=== PATIENT | male | born 1975 | race Caucasian/White ===

== ENCOUNTER 2016-10-02 19:17 | Emergency (ER) | payer MEDICAID, OTHER ==
[2016-10-02 19:53] VITALS: BP 100/58
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
== END 2016-10-02 20:46 | disposition home or self-care (01) ==
LOC: ER 19:17
DX: S30.810A Abrasion of lower back and pelvis, initial encounter (principal); X99.1XXA Assault by knife, initial encounter
CPT/HCPCS: 99284

== ENCOUNTER 2016-10-19 12:32 | Emergency (ER) | payer MEDICAID ==
--- NOTE | 2016-10-19 13:30 | ER Document Report ---
ED Skin Rash/Insect Bite/Abscs - General Chief Complaint: Cyst Stated Complaint: TOOTHACHE,ABSCESS Notes: Patient has several complaints. He has chronic cysts on the back of his neck and the lower scalp region for which he has had drainage and also treatment with antibiotics with some improvement. He also now has a fresh new swollen lesion of his scrotal sac. And finally, the patient has some bad teeth on the lower right side of his jaw that are very painful. He has an appointment for a dentist on November 23. Patient is not had any fever. No nausea or vomiting. This lesion on his scrotum has not been draining. Patient is a known diabetic who in the past has been on insulin as well as metformin, but is been out of his diabetes medicines for about a year. His blood sugars have been running in the 3 and 400s. Says he can get a prescription filled for his medicines now that he is on Medicaid. Allergic to penicillin. TRAVEL OUTSIDE OF THE [place] IN LAST 30 DAYS: No - Related Data Allergies/Adverse Reactions: Penicillins Allergy (Severe, Verified 10/19/16 12:45) ketorolac tromethamine [From Toradol] Allergy (Verified 10/19/16 12:45) acetaminophen [From Tylenol] Adverse Reaction (Mild, Verified 10/19/16 12:45) Nausea codeine [Codeine] Adverse Reaction (Verified 10/19/16 12:45) Nausea tramadol [Tramadol] Adverse Reaction (Verified 10/19/16 12:45) Nausea tramadol HCl [From Ultram] Adverse Reaction (Verified 10/19/16 12:45) Nausea Past Medical History - Social History Smoking Status: Unknown if Ever Smoked Family History: Reviewed & Not Pertinent Patient has suicidal ideation: No Patient has homicidal ideation: No - Past Medical History Cardiac Medical History: Reports: Hx Hypertension Pulmonary Medical History: Reports: Hx Asthma Endocrine Medical History: Reports: Hx Diabetes Mellitus Type 1, Hx Diabetes Mellitus Type 2 Renal/ Medical History: Reports: Hx Kidney Stones. Denies: Hx Peritoneal Dialysis GI Medical History: Reports: Hx Gastroesophageal Reflux Disease Musculoskeltal Medical History: Reports Hx Arthritis - chronic back pain Skin Medical History: Reports Hx MRSA Psychiatric Medical History: Reports: Hx Anxiety, Hx Attention Deficit Hyperactivity Disorder, Hx Bipolar Disorder, Hx Depression, Hx Schizophrenia Past Surgical History: Reports: Hx Cholecystectomy, Hx Orthopedic Surgery - r pinkie, L leg fx as child - Immunizations Hx Diphtheria, Pertussis, Tetanus Vaccination: Yes - 10/19/12 Review of Systems - Review of Systems Constitutional: denies: Fever Cardiovascular: denies: Chest pain Respiratory: denies: Cough, Short of breath, Wheezing Gastrointestinal: denies: Abdominal pain Skin: See HPI Neurological/Psychological: No symptoms reported Physical Exam - Vital signs Vitals: Temp Pulse Resp BP Pulse Ox 98.4 F 106 H 19 143/83 H 98 10/19/16 12:45 10/19/16 12:45 10/19/16 12:45 10/19/16 12:45 10/19/16 12:45 Interpretation: Normal - Notes Notes: PHYSICAL EXAMINATION: GENERAL: Well-appearing, in no acute distress. Vital signs are all normal. HEAD: Atraumatic, normocephalic. In the lower portion of the scalp and onto the upper cervical skin in the back of the neck, the patient has a diffuse cellulitic looking skin with some scattered pustules present. No actual abscess formation or fluctuance that would indicate a need for incision and drainage of any of these lesions. I discussed local hygiene and scrubbing of the areas with soap and water a couple times a day ENT: oropharynx clear without exudates. Moist mucous membranes. Patient has couple of dental caries and bad teeth on the lower right most posterior aspect of the jaw. No gingival or jaw swelling to suggest an abscess. NECK: Normal range of motion, supple. LUNGS: Breath sounds clear and equal bilaterally. HEART: Regular rate and rhythm without murmurs. ABDOMEN: Soft, nontender. No guarding or rebound. Patient has one single slightly swollen nodular structure of the scrotal sac that's likely a infected hair follicle. There is no fluctuance and no need for I&D. BACK: No tenderness throughout entire back.in. SKIN: Warm, dry, no rashes. See above. Course - Vital Signs Vital signs: Temp Pulse Resp BP Pulse Ox 97.7 F 91 16 121/76 98 10/19/16 13:29 10/19/16 13:29 10/19/16 13:29 10/19/16 13:29 10/19/16 13:29 - Laboratory Laboratory results interpreted by me: 10/19/16 13:25 POC Glucose 357 H Discharge - Discharge Clinical Impression: Folliculitis, Dental caries Cellulitis Qualifiers: Site of cellulitis: neck Qualified Code(s): L03.221 - Cellulitis of neck Diabetes Qualifiers: Diabetes mellitus type: type 2 Diabetes mellitus complication status: with skin complications Diabetes mellitus complication detail: with dermatitis Condition: Stable Disposition: HOME, SELF-CARE Additional Instructions: Folliculitis You have a skin infection called folliculitis. This occurs when bacteria infect the hair follicles of the skin. Typically, redness and small pustules are found where hair shafts enter the skin. Allergy, surface irritation, shaving, and exposure to hot tubs predispose to folliculitis. The usual treatment is antibiotic ointment, sometimes combined with cortisone-type medication. Warm compresses are often used. If the infection has moved deeper into the skin, oral antibiotics may be necessary. To avoid future episodes of folliculitis, you must identify (if possible) the factors which allowed this infection to start. If you develop increasing pain, swelling, fever, or red streaks, call the doctor or return for re-evaluation. CELLULITIS: You have an infection of your skin and underlying soft tissues called cellulitis. This is due to bacteria, which can enter through any break in the skin, or even through an irritated hair follicle. Untreated, cellulitis will usually worsen. Antibiotics are required. Usually, warm packs or warm soaks, and elevation of the infected area are recommended. You should start getting better within 24 to 36 hours. Most infections respond quickly to the right medication. Follow-up care is important, however, to check for abscess (boil) formation, unsuspected foreign body, or resistant infection. If you develop fever, chills, or if the area of infection is becoming rapidly more swollen or painful, call the doctor at once. MRSA CELLULITIS: You have an infection of your skin and underlying soft tissues called cellulitis. This is due to bacteria, which can enter through any break in the skin, or even through an irritated hair follicle. Untreated, cellulitis will usually worsen and may form an abscess which requires draining. Although many bacterial organisms can cause cellulitis and abscess formations, the most likely bacteria is Methicillin-Resistant Staph Aureus, or MRSA for short. Antibiotics are required. Usually, warm packs or warm soaks, and elevation of the infected area are recommended. You should start getting better within 24 to 36 hours. Most infections respond quickly to the right medication. Follow-up care is important, however, to check for abscess (boil) formation, unsuspected foreign body, or resistant infection. If you develop fever, chills, or if the area of infection is becoming rapidly more swollen or painful, call the doctor at once. ANTIBIOTIC THERAPY: You have been given an antibiotic prescription. It's important that you take all the medication, unless instructed otherwise by your physician. Failure to complete the entire course can result in relapse of your condition. Common side effects of antibiotics include nausea, intestinal cramping, or diarrhea. Women may develop vaginal yeast infections, and babies can get yeast (thrush) in the mouth following the use of antibiotics. Contact your physician if you develop significant side effects from this medication. Allergy to this antibiotic can result in hives, wheezing, faintness, or itching. If symptoms of allergy occur, stop the medication and call the doctor. TRIMETHOPRIM-SULFA: You have been given a prescription for trimethoprim-sulfa (TMS, Septra, Bactrim). This is a combination antibiotic of the sulfa class, often used for urinary tract infections, middle ear infections, bronchitis, shigella intestinal infection, and Pneumocystis pneumonia. TMS is usually well-tolerated. Occasional side effects include nausea and decreased appetite. Septra is not recommended for infants less than two months of age. Do not take this medication if you have experienced severe side effects or allergy to sulfa medicine. You should stop this medicine at once and contact your physician if you develop any rash, joint pain, shortness of breath, bruising, or jaundice ( yellow color in the skin), or if you develop any other new or unusual symptoms. ORAL NARCOTIC MEDICATION: You have been given a prescription for pain control. This medication is a narcotic. It's best taken with food, as nausea can result if taken on an empty stomach. Don't operate machinery or drive within six hours of taking this medication. Do not combine this medicine with alcohol, or with any medication which can cause sedation (such as cold tablets or sleeping pills) unless you get permission from the physician. Narcotics tend to cause constipation. If possible, drink plenty of fluids and eat a diet high in fiber and fruits. Diabetes You have an abnormally high blood sugar, suspicious for diabetes. Not all high blood sugar requires long-term treatment. High blood sugar can be due to medications, , or the stress of illness. (These cases are "borderline diabetes.") If the doctor feels your high blood sugar might get better with time, you may not require treatment now. You will be scheduled for further evaluation. It's very important that you follow through. Uncontrolled high blood sugar leads to early heart disease , strokes, nerve damage, eye damage, and kidney damage. All diabetics should follow a diet designed to control the blood sugar. Overweight diabetics should exercise regularly and lose weight. If this is not sufficient to control the blood sugar, pills or insulin shots are necessary. Younger people who develop diabetes almost always require insulin daily. Home testing of blood sugars or urine sugar is required. Diabetic teaching is available to help you figure insulin doses and monitor the blood sugar. Call the physician if there is faintness, excess sleepiness, or very rapid breathing. If hypoglycemia (LOW blood sugar) develops, symptoms are shakiness, weakness, sweating, and confusion. In this case, you should eat or drink something with sugar at once. TOOTHACHE: Your pain is due to dental decay. The tooth must be repaired in order for you to feel better. You will, therefore, be referred to a dentist. We do not have dentists on the staff at [facility]. Severe swelling or drainage around a tooth usually means a dental abscess. This also requires evaluation and treatment by the dentist, but antibiotics may be prescribed while awaiting dental treatment. You should be rechecked immediately if you develop major swelling of the face, increasing pain, a lump in the jaw or gums, headache, difficulty swallowing, or fever. ORAL NARCOTIC MEDICATION: You have been given a prescription for pain control. This medication is a narcotic. It's best taken with food, as nausea can result if taken on an empty stomach. Don't operate machinery or drive within six hours of taking this medication. Do not combine this medicine with alcohol, or with any medication which can cause sedation (such as cold tablets or sleeping pills) unless you get permission from the physician. Narcotics tend to cause constipation. If possible, drink plenty of fluids and eat a diet high in fiber and fruits. FOLLOW-UP CARE: You have been referred for follow-up care to the dentists listed below. Call the dentists office for an appointment as you were instructed or within the next two days. If you experience worsening or a significant change in your symptoms, notify the physician immediately or return to the Emergency Department at any time for re-evaluation. [facility] [address] [place] [address] [facility] [place] [address] [facility] [address] [facility] [address] [facility] [email or web address] [facility] [address] [place] [address] Sunday- 8:00am to 5:00 pm Will see patients from other [place] [facility]. Charges based on income and family size and accepts Medicare, Medicaid, and Insurances Will pull molars [facility] [address] Hours of Operation 8:00 am - 4:30 pm weekdays The following dental offices accept Medicaid: [facility] Dr. Castano Dr. Chapman Dr. Naqvi Dr. Vyas Min Calvo L[place], and Jen oral surgery Dr. Govea ([place]) Dr. Becker ([place]) [facility] Drs. Akbar and Max ([place]) Dr. Fernandes ([place]) [facility] Dr. Uribe ([place]) Drs. Prado and ([place]) Medicaid Care Line FOLLOW-UP CARE: If you have been referred to a physician for follow-up care, call the physician s office for an appointment as you were instructed or within the next two days. If you experience worsening or a significant change in your symptoms, notify the physician immediately or return to the Emergency Department at any time for re-evaluation. Prescriptions: Metformin HCl [Glucophage] 1,000 mg PO BID #60 tablet Oxycodone HCl/Acetaminophen [Percocet 5-325 mg Tablet] 1 - 2 tab PO Q4H PRN #15 tablet PRN Reason: Sulfamethoxazole/Trimethoprim [Bactrim Ds Tablet] 1 each PO BID #20 tablet Referrals: HORTENCIA JOYNER MD [Primary Care Provider] - Follow up as needed
[2016-10-19 13:31] VITALS: BP 121/76
== END 2016-10-19 13:30 | disposition home or self-care (01) ==
LOC: ER 12:32
DX: E11.628 Type 2 diabetes mellitus with other skin complications (principal); L03.221 Cellulitis of neck; L73.9 Follicular disorder, unspecified; Z91.14 Patient's other noncompliance with medication regimen; K02.9 Dental caries, unspecified; K08.89 Other specified disorders of teeth and supporting structures; I10 Essential (primary) hypertension; Z86.14 Personal history of Methicillin resistant Staphylococcus aureus infection; Z88.0 Allergy status to penicillin; Z88.8 Allergy status to other drugs, medicaments and biological substances; J45.909 Unspecified asthma, uncomplicated
CPT/HCPCS: 82962; 99283

== ENCOUNTER 2016-10-30 09:46 | Emergency (ER) | payer MEDICAID ==
[2016-10-30] MEDS ORDERED: OXYCODONE HCL IR 5 MG TABLET PO ONE (10:30)
--- NOTE | 2016-10-30 10:51 | ER Document Report ---
HPI - HPI Patient complains to provider of: hand injury Onset: Yesterday Onset/Duration: Sudden Quality of pain: Achy Pain Level: 5 Context: Patient states that he was installing a speaker system into his trunk, the speaker system fell crushing his hand on the edge of the car trunk. Patient complains of left fourth finger pain Associated Symptoms: Other - Left fourth finger injury Exacerbated by: Movement Relieved by: Denies Similar symptoms previously: No Recently seen / treated by doctor: No - ROS ROS below otherwise negative: Yes Systems Reviewed and Negative: Yes All other systems reviewed and negative - REPRODUCTIVE Reproductive: DENIES: : - MUSCULOSKELETAL Musculoskeletal: REPORTS: Extremity pain - Left fourth finger - DERM Skin Color: Normal Skin Problems: None Past Medical History - General Information source: Patient - Social History Smoking Status: Never Smoker Chew tobacco use (# tins/day): Yes Frequency of alcohol use: None Drug Abuse: None Occupation: none Lives with: Family Family History: Reviewed & Not Pertinent Patient has suicidal ideation: No Patient has homicidal ideation: No - Past Medical History Cardiac Medical History: Reports: Hx Hypertension Pulmonary Medical History: Reports: Hx Asthma Denies: Hx Tuberculosis Endocrine Medical History: Reports: Hx Diabetes Mellitus Type 1, Hx Diabetes Mellitus Type 2 Renal/ Medical History: Reports: Hx Kidney Stones. Denies: Hx Peritoneal Dialysis GI Medical History: Reports: Hx Gastroesophageal Reflux Disease Musculoskeltal Medical History: Reports Hx Arthritis - chronic back pain Skin Medical History: Reports Hx MRSA Psychiatric Medical History: Reports: Hx Anxiety, Hx Attention Deficit Hyperactivity Disorder, Hx Bipolar Disorder, Hx Depression, Hx Schizophrenia Past Surgical History: Reports: Hx Cholecystectomy, Hx Orthopedic Surgery - r pinkie, L leg fx as child - Immunizations Hx Diphtheria, Pertussis, Tetanus Vaccination: Yes - 10/19/12 Vertical Provider Document - CONSTITUTIONAL Agree With Documented VS: Yes Exam Limitations: No Limitations General Appearance: WD/WN, No Apparent Distress - INFECTION CONTROL TRAVEL OUTSIDE OF THE [place] IN LAST 30 DAYS: No - HEENT HEENT: Atraumatic, Normocephalic - NECK Neck: Normal Inspection - RESPIRATORY Respiratory: No Respiratory Distress O2 Sat by Pulse Oximetry: 89 - CARDIOVASCULAR Pulses: Normal: Radial - MUSCULOSKELETAL/EXTREMETIES Musculoskeletal/Extremeties: MAEW, Tender - Patient with left fourth finger tenderness along DIP and PIP joint, no deformity, no ecchymosis, No Edema. negative: Eccymosis - NEURO Level of Consciousness: Awake, Alert, Appropriate Motor/Sensory: No Motor Deficit - DERM Integumentary: Warm, Dry, No Rash Course - Re-evaluation Re-evalutation: 10/30/16 11:09 Patient with an erroneous oxygen saturation recorded, patient has not been hypoxic during ER stay. - Vital Signs Vital signs: Temp Pulse Resp BP Pulse Ox 98.4 F 99 18 132/85 H 89 L 10/30/16 09:52 10/30/16 09:52 10/30/16 09:52 10/30/16 09:52 10/30/16 09:52 - Diagnostic Test Radiology reviewed: Image reviewed, Reports reviewed Procedures - Immobilization Left 4th digit Pre-Proc Neuro Vasc Exam: Normal Immobilizer type: Volar splint Performed by: PCT Post-Proc Neuro Vasc Exam: Normal Alignment checked and good: Yes Discharge - Discharge Clinical Impression: Finger fracture, left Condition: Stable Disposition: HOME, SELF-CARE Instructions: Fractured Finger ([facility]), Splint Precautions ([facility]), Ice & Elevation ([facility]), Oral Narcotic Medication ([facility]) Additional Instructions: Return immediately for any new or worsening symptoms Followup with your primary care provider, call tomorrow to make a followup appointment Follow up with orthopedic DrHuan for further evaluation, call tomorrow for an appointment time Prescriptions: Oxycodone HCl [Oxy-Ir 5 mg Tablet] 5 mg PO Q6HP PRN #15 tab PRN Reason: Referrals: HORTENCIA JOYNER MD [Primary Care Provider] - Follow up tomorrow [facility] [Provider Group] - Follow up tomorrow
[2016-10-30 11:36] VITALS: BP 128/88
== END 2016-10-30 11:37 | disposition home or self-care (01) ==
LOC: ER 09:46
PROC: 2W3KX1Z Immobilization of Left Finger using Splint (ICD-10-PCS; principal; 2016-10-30)
DX: S69.92XA Unspecified injury of left wrist, hand and finger(s), initial encounter (principal); W20.8XXA Other cause of strike by thrown, projected or falling object, initial encounter; I10 Essential (primary) hypertension; E11.9 Type 2 diabetes mellitus without complications; K21.9 Gastro-esophageal reflux disease without esophagitis; Z87.442 Personal history of urinary calculi; Z86.14 Personal history of Methicillin resistant Staphylococcus aureus infection; Z90.49 Acquired absence of other specified parts of digestive tract
CPT/HCPCS: 99283; 73140; 29125; J3490

== ENCOUNTER 2016-12-11 20:53 | Emergency (ER) | payer MEDICAID, OTHER ==
[2016-12-11 21:11] VITALS: BP 119/87
--- NOTE | 2016-12-11 22:16 | ER Document Report ---
ED Psych Disorder / Suicide - General Chief Complaint: Wrist Injury Stated Complaint: WRIST LACERATION Time Seen by Provider: 12/11/16 22:15 Mode of Arrival: Ambulatory Information source: Patient Notes: 41-year-old male who is anxious and agitated demanding food and being seen quickly once his volar right wrist checked. He cut his wrist last Sunday or . He has a history of cutting self with increased stress. Today he was arguing with his all day. He does have a psychiatrist and takes medication for anxiety stress schizophrenia. He did not take his benzodiazepine tonight, he denies alcohol or substance abuse. he denies suicide ideation or homicidal ideation at this time. He appears voices daily and they are not telling him to harm himself today. No fever or chills. He is worried because he had some numbness to his inner aspect of the right thumb since he cut his wrist. TRAVEL OUTSIDE OF THE [place] IN LAST 30 DAYS: No - Related Data Allergies/Adverse Reactions: Penicillins Allergy (Severe, Verified 10/30/16 10:47) ketorolac tromethamine [From Toradol] Allergy (Verified 10/30/16 10:47) acetaminophen [From Tylenol] Adverse Reaction (Mild, Verified 10/30/16 10:47) Nausea codeine [Codeine] Adverse Reaction (Verified 10/30/16 10:47) Nausea tramadol [Tramadol] Adverse Reaction (Verified 10/30/16 10:47) Nausea tramadol HCl [From Ultram] Adverse Reaction (Verified 10/30/16 10:47) Nausea Past Medical History - General Information source: Patient - Social History Smoking Status: Current Every Day Smoker Frequency of alcohol use: None Drug Abuse: None Lives with: Spouse/Significant other Family History: Reviewed & Not Pertinent, Hyperlipidemia Patient has suicidal ideation: Yes Patient has homicidal ideation: No - Past Medical History Cardiac Medical History: Reports: Hx Hypertension Pulmonary Medical History: Reports: Hx Asthma Denies: Hx Tuberculosis Endocrine Medical History: Reports: Hx Diabetes Mellitus Type 1, Hx Diabetes Mellitus Type 2 Renal/ Medical History: Reports: Hx Kidney Stones. Denies: Hx Peritoneal Dialysis GI Medical History: Reports: Hx Gastroesophageal Reflux Disease Musculoskeltal Medical History: Reports Hx Arthritis - chronic back pain Skin Medical History: Reports Hx MRSA Psychiatric Medical History: Reports: Hx Anxiety, Hx Attention Deficit Hyperactivity Disorder, Hx Bipolar Disorder, Hx Depression, Hx Schizophrenia Past Surgical History: Reports: Hx Cholecystectomy, Hx Orthopedic Surgery - r pinkie, L leg fx as child - Immunizations Hx Diphtheria, Pertussis, Tetanus Vaccination: Yes - 10/19/12 Review of Systems - Review of Systems Constitutional: No symptoms reported EENT: No symptoms reported Cardiovascular: No symptoms reported Respiratory: No symptoms reported Gastrointestinal: No symptoms reported Genitourinary: No symptoms reported Male Genitourinary: No symptoms reported Musculoskeletal: No symptoms reported Skin: See HPI Hematologic/Lymphatic: No symptoms reported Neurological/Psychological: See HPI Physical Exam - Vital signs Vitals: Temp Pulse Resp BP Pulse Ox 98.5 F 116 H 16 119/87 H 97 12/11/16 21:07 12/11/16 21:07 12/11/16 21:07 12/11/16 21:07 12/11/16 21:07 Interpretation: Normal - General General appearance: Appears well, Alert, Anxious - Agitated and demanding verbally - HEENT Head: Normocephalic, Atraumatic Eyes: Normal Pupils: PERRL Neck: Supple - Respiratory Respiratory status: No respiratory distress Chest status: Nontender Breath sounds: Normal Chest palpation: Normal - Cardiovascular Rhythm: Regular Heart sounds: Normal auscultation Murmur: No - Abdominal Inspection: Normal Distension: No distension Bowel sounds: Normal Tenderness: Nontender Organomegaly: No organomegaly - Back Back: Normal, Nontender - Extremities General upper extremity: Normal inspection, Nontender, Normal color, Normal ROM , Normal temperature General lower extremity: Normal inspection, Nontender, Normal color, Normal ROM , Normal temperature, Normal weight bearing. No: Laci's sign - Neurological Neuro grossly intact: Yes Cognition: Normal Orientation: AAOx4 [place] Coma Scale Eye Opening: Spontaneous [place] Coma Scale Verbal: Oriented [place] Coma Scale Motor: Obeys Commands [place] Coma Scale Total: 15 Speech: Normal Motor strength normal: LUE, RUE, LLE, RLE Sensory: Normal - Psychological Associated symptoms: Agitated, Anxious, Psychomotor agitation - Skin Skin Temperature: Warm Skin Moisture: Dry Skin Color: Normal Skin irregularity: Laceration - 3 cm full thickness (to sub Q only) healing / granulating in without pus or ascending erythema, FROM. dulled senastion to right thenar aspect of thumb/palm Location of irregularity: Other - volar right breast Irregularity with: Tenderness. negative: Warmth, Lymphangitis Course - Re-evaluation Re-evalutation: 12/11/16 23:42 dr. tran went into the room as I requested her to do, pt is not suicidal at this time. He wants to go home, he can take his diabetes medication when he gets home, treatment for a few days of clindamycin for the wrist wound that he cut 3-4 days. - Vital Signs Vital signs: Temp Pulse Resp BP Pulse Ox 98.5 F 116 H 16 119/87 H 97 12/11/16 21:07 12/11/16 21:07 12/11/16 21:07 12/11/16 21:07 12/11/16 21:07 - Laboratory Laboratory results interpreted by me: 12/11/16 23:30 Urine Glucose (UA) >=500 H Discharge - Discharge Clinical Impression: right volar wrist wound, Anxiety, Chronic schizophrenia, Numbness Condition: Good Disposition: HOME, SELF-CARE Instructions: Dressing Instructions for Open Wounds ([facility]), Schizophrenia ([facility]) , Anxiety ([facility]), Diabetes ([facility]), Clindamycin ([facility]) Additional Instructions: wash open water daily, nonstick dressing return to the emergency room any fever, red streaks, pus, worsening of the wound see your psych doctor tomorrow. take your anxiety medication and diabetes medication when you get home Prescriptions: Clindamycin HCl [Cleocin 150 mg Capsule] 300 mg PO TID #42 capsule
[2016-12-11] MEDS ORDERED: CLINDAMYCIN HCL 150 MG CAPSULE PO ONE (22:58)
[2016-12-11] MEDS ORDERED: HYDROXYZINE PAMOATE 50 MG CAPSULE PO ONE (22:58)
--- NOTE | 2016-12-11 22:58 | RADIOLOGY REPORT (SQ) ---
EXAM DESCRIPTION: WRIST RIGHT 3 VIEWS COMPLETED DATE/TIME: 12/11/2016 10:31 pm REASON FOR STUDY: laceration COMPARISON: None. NUMBER OF VIEWS: Three views. TECHNIQUE: AP, lateral, and oblique radiographic images acquired of the right wrist. LIMITATIONS: None. FINDINGS: MINERALIZATION: Normal. BONES: No acute fracture or dislocation. No worrisome bone lesions. Normal alignment. SOFT TISSUES: No soft tissue swelling. No foreign body. OTHER: No other significant finding. IMPRESSION: NO RADIOGRAPHIC EVIDENCE OF ACUTE INJURY. TECHNICAL DOCUMENTATION: JOB ID: [id number] [employer]- All Rights Reserved
[2016-12-11] MEDS ORDERED: HALOPERIDOL LACTATE INJ 5 MG/1 ML VIAL ONE (23:39)
[2016-12-11] MEDS ORDERED: LORAZEPAM INJ 2 MG/1 ML VIAL ONE (23:40)
--- NOTE | 2016-12-11 23:45 | ER Document Report ---
Doctor's Note Notes: 12/11/16 23:43 Patient was seen and evaluated at bedside with nurse practitioner Jey patient reports that he has been hearing voices all his life, there are no different today, he denies being suicidal, he does admit to cutting right wrist 4 days ago, states that he is a cutter but has no intention of killing himself, states he feels safe to go home, therefore patient will be discharged home with instructions for follow-up and advised to return if symptoms worsen
[2016-12-11 23:50] LABS: APPEARANCE,URINE CLEAR; BILIRUBIN,URINE NEGATIVE (NEGATIVE); GLUCOSE, URINE >=500 mg/dL (NEGATIVE); KETONES,URINE NEGATIVE (NEGATIVE); LEUKOCYTE ESTERASE,URINE NEGATIVE (NEGATIVE); NITRITE,URINE NEGATIVE (NEGATIVE); PROTEIN,URINE NEGATIVE (NEGATIVE); URINE SPECIFIC GRAVITY 1.009; UROBILINOGEN,URINE NEGATIVE mg/dL (<2.0)
[2016-12-12 00:04] LABS: URINE BARBITURATES SCREEN NEGATIVE; URINE METHADONE SCREEN NEGATIVE; URINE OPIATES LOW NEGATIVE; URINE PHENCYCLIDINE SCREEN NEGATIVE
--- NOTE | 2016-12-15 08:52 | EKG REPORT ---
SEVERITY:- ABNORMAL ECG - SINUS TACHYCARDIA SOLO, CONSIDER BIATRIAL ABNORMALITIES BORDERLINE T WAVE ABNORMALITIES : Confirmed by: Lexie Pompa 15-Dec-2016 08:51:20
== END 2016-12-11 23:49 | disposition home or self-care (01) ==
LOC: ER 20:53
DX: S61.511A Laceration without foreign body of right wrist, initial encounter (principal); F41.9 Anxiety disorder, unspecified; F20.9 Schizophrenia, unspecified; R20.0 Anesthesia of skin; X78.9XXA Intentional self-harm by unspecified sharp object, initial encounter; Z79.899 Other long term (current) drug therapy; F17.200 Nicotine dependence, unspecified, uncomplicated
CPT/HCPCS: 93005; 99283; 81001; 80307; 73110; 93010; J3490 ×2

== ENCOUNTER 2016-12-14 20:00 | Emergency (ER) | payer OTHER, MEDICAID ==
--- NOTE | 2016-12-14 20:02 | ER Document Report ---
ED Head/Face/Scalp Injury - General Chief Complaint: Head Injury Stated Complaint: SELF INFLICTED HEAD INJURY Time Seen by Provider: 12/14/16 20:01 Notes: Patient is a 41-year-old male, past medical history schizophrenia, presents by EMS after he was in assisted and hit his head against a piece of glass. EMS said that he has a forehead injury and he may have had LOC. Pt is intermittently agitated and says he hears voices, but he says that he always hears voices. Denies numbness, tingling, blurry vision, suicidal ideation, homicidal ideation , chest pain or shortness of breath TRAVEL OUTSIDE OF THE [place] IN LAST 30 DAYS: No - Related Data Allergies/Adverse Reactions: Penicillins Allergy (Severe, Verified 12/14/16 20:25) ketorolac tromethamine [From Toradol] Allergy (Verified 12/14/16 20:25) acetaminophen [From Tylenol] Adverse Reaction (Mild, Verified 12/14/16 20:25) Nausea codeine [Codeine] Adverse Reaction (Verified 12/14/16 20:25) Nausea tramadol [Tramadol] Adverse Reaction (Verified 12/14/16 20:25) Nausea tramadol HCl [From Ultram] Adverse Reaction (Verified 12/14/16 20:25) Nausea Past Medical History - General Information source: Patient - Social History Smoking Status: Current Every Day Smoker Drug Abuse: Cocaine Family History: Reviewed & Not Pertinent, Hyperlipidemia - Past Medical History Cardiac Medical History: Reports: Hx Hypertension Pulmonary Medical History: Reports: Hx Asthma Denies: Hx Tuberculosis Endocrine Medical History: Reports: Hx Diabetes Mellitus Type 1, Hx Diabetes Mellitus Type 2 Renal/ Medical History: Reports: Hx Kidney Stones. Denies: Hx Peritoneal Dialysis GI Medical History: Reports: Hx Gastroesophageal Reflux Disease Musculoskeltal Medical History: Reports Hx Arthritis - chronic back pain Skin Medical History: Reports Hx MRSA Psychiatric Medical History: Reports: Hx Anxiety, Hx Attention Deficit Hyperactivity Disorder, Hx Bipolar Disorder, Hx Depression, Hx Schizophrenia Past Surgical History: Reports: Hx Cholecystectomy, Hx Orthopedic Surgery - r pinkie, L leg fx as child - Immunizations Hx Diphtheria, Pertussis, Tetanus Vaccination: Yes - 10/19/12 Review of Systems - Review of Systems Notes: REVIEW OF SYSTEMS: CONSTITUTIONAL: -fevers, -chills EENT: -eye pain, -difficulty swallowing, -nasal congestion CARDIOVASCULAR:-chest pain, -syncope. RESPIRATORY: -cough, -SOB GASTROINTESTINAL: -abdominal pain, - nausea, -vomiting, -diarrhea GENITOURINARY: -dysuria, -hematuria MUSCULOSKELETAL: -back pain, -neck pain SKIN: +forehead laceration HEMATOLOGIC: -easy bruising or bleeding. LYMPHATIC: -swollen, enlarged glands. NEUROLOGICAL: -altered mental status, -headache, -neurologic symptoms PSYCHIATRIC: -anxiety, -depression. ALL OTHER SYSTEMS REVIEWED AND NEGATIVE. Physical Exam - Vital signs Vitals: Resp Pulse Ox 17 100 12/14/16 20:21 12/14/16 20:21 - Notes Notes: PHYSICAL EXAMINATION: GENERAL: Well-appearing, well-nourished and in no acute distress. HEAD: Superficial forehead lacerations EYES: Pupils equal round and reactive to light, extraocular movements intact, sclera anicteric, conjunctiva are normal. ENT: nares patent, oropharynx clear without exudates. Moist mucous membranes. NECK: Normal range of motion, supple without lymphadenopathy LUNGS: Breath sounds clear to auscultation bilaterally and equal. No wheezes rales or rhonchi. HEART: Regular rate and rhythm without murmurs ABDOMEN: Soft, nontender, normoactive bowel sounds. No guarding, no rebound. No masses appreciated. EXTREMITIES: Normal range of motion, no pitting or edema. No cyanosis. NEUROLOGICAL: Cranial nerves grossly intact. Normal speech, normal gait. Normal sensory and motor exams. PSYCH: Intermittent agitation, but redirectable. No SI or HI. Course - Re-evaluation Re-evalutation: Head CT does not show any acute intracranial abnormalities. Band-Aid placed on superficial abrasions/lacerations on his forehead. Discharged patient to police custody. Denies SI or HI. - Vital Signs Vital signs: Temp Pulse Resp BP Pulse Ox 98.1 F 21 H 116/87 H 100 12/14/16 22:15 12/14/16 22:01 12/14/16 22:01 12/14/16 22:01 - Laboratory Result Diagrams: 12/14/16 20:28 12/14/16 20:28 Laboratory results interpreted by me: 12/14/16 12/14/16 20:28 20:28 WBC 12.9 H RBC 5.82 H Absolute Neutrophils 9.9 H Chloride 95 L Glucose 303 H Creatine Kinase 249 H - Diagnostic Test Radiology reviewed: Image reviewed, Reports reviewed Radiology results interpreted by me: Head CT: NAD Discharge - Discharge Clinical Impression: Head injury Qualifiers: Encounter type: initial encounter Qualified Code(s): S09.90XA - Unspecified injury of head, initial encounter Laceration of forehead Qualifiers: Encounter type: initial encounter Qualified Code(s): S01.81XA - Laceration without foreign body of other part of head, initial encounter Condition: Good Disposition: HOME, SELF-CARE Additional Instructions: NON-SUTURED LACERATION: Your laceration did not require suturing. Some lacerations cannot be sutured because of increased infection risk, while others simply don't need stitches because they are shallow or very short. Your injury should be protected while it heals. Usually complete healing takes 10 to 14 days. Keep the dressing clean and dry, and change it every day. If you notice increasing pain, redness, swelling, drainage, or tender lumps in the armpit or groin above the injury, infection may be present. You should call the doctor at once. SOAP CLEANSING: Gently wash the wound daily using a mild soap (like Ivory, Phisoderm, Neutrogena). Use warm water, rubbing gently until all debris, ooze, and crusting have been washed from the wound. Allow to dry briefly (about 10 minutes) after cleaning. Repeat this cleansing at least three times a day for the first two days and then once or twice a day. ANTIBIOTIC OINTMENT PROTECTION: Your wounds are such that dressing them is not practical or optional. After cleansing, you should apply a thin coating of antibiotic ointment ( Bacitracin, not Neosporin) to the wounds at least three times daily. This lessens infection risk, and may decrease the amount of scarring. Use a q-tip or dull butter knife, not your finger, to apply this ointment. Any debris or ooze which builds up in the ointment should be gently rubbed off with a sterile gauze pad. Harder crusting may need to be gently scrubbed off with a clean wash cloth with soap and warm water, perhaps applying a warm, wet wash cloth to the wound for ten minutes first. Development of redness, severe itching, or blistering may mean allergy to the ointment. See the doctor. FOLLOW-UP CARE: If you have been referred to another physician for follow-up care, call that physicians office for an appointment as you were instructed. If you experience a significant change in your laceration, or if you are concerned there may be an infection (swelling, redness, drainage, increasing tenderness, red streaks, tender lumps in the armpit or groin above the laceration, or fever) , return to the Emergency Department immediately re-evaluation.
--- NOTE | 2016-12-14 20:30 | RADIOLOGY REPORT (SQ) ---
EXAM DESCRIPTION: CT HEAD WITHOUT COMPLETED DATE/TIME: 12/14/2016 8:12 pm REASON FOR STUDY: head injury COMPARISON: May 2016 TECHNIQUE: Axial images acquired through the brain without intravenous contrast. Images reviewed wi th bone, brain and subdural windows. Images stored on PACS. All CT scanners at this facility use dose modulation, iterative reconstruction, and/or weight based d osing when appropriate to reduce radiation dose to as low as reasonably achievable (ALARA). [facility]: Dose Right [facility]: CareDose [facility]: Dose Right [facility]: Teradose 4D [facility]: L2C RADIATION DOSE: 64.61 mGy. LIMITATIONS: None. FINDINGS: VENTRICLES: Normal size and contour. CEREBRUM: No masses. No hemorrhage. No midline shift. Normal greenberg/white matter differentiation. N o evidence for acute infarction. CEREBELLUM: No masses. No hemorrhage. No alteration of density. No evidence for acute infarction. EXTRAAXIAL SPACES: No fluid collections. No masses. ORBITS AND GLOBE: No intra- or extraconal masses. Normal contour of globe without masses. CALVARIUM: No fracture. PARANASAL SINUSES: No fluid or mucosal thickening. SOFT TISSUES: No mass or hematoma. OTHER: No other significant finding. IMPRESSION: NORMAL BRAIN CT WITHOUT CONTRAST. TECHNICAL DOCUMENTATION: JOB ID: [id number] Quality ID # [id number]: Final reports with documentation of one or more dose reduction techniques (e.g., Au tomated exposure control, adjustment of the mA and/or kV according to patient size, use of iterative reconstruction technique) 2010 [employer]- All Rights Reserved
--- NOTE | 2016-12-14 20:32 | RADIOLOGY REPORT (SQ) ---
EXAM DESCRIPTION: CT CERVICAL SPINE WITHOUT COMPLETED DATE/TIME: 12/14/2016 8:13 pm REASON FOR STUDY: head injury, altered COMPARISON: June 2016 TECHNIQUE: Axial images acquired through the cervical spine without intravenous contrast. Images re viewed with lung, soft tissue and bone windows. Reconstructed coronal and sagittal MPR images review ed. Images stored on PACS. All CT scanners at this facility use dose modulation, iterative reconstruction, and/or weight based d osing when appropriate to reduce radiation dose to as low as reasonably achievable (ALARA). [facility]: Dose Right [facility]: CareDose [facility]: Dose Right [facility]: Teradose 4D [facility]: [employer] RADIATION DOSE: 32.16 mGy. LIMITATIONS: None. FINDINGS: ALIGNMENT: Anatomic. MINERALIZATION: Normal. VERTEBRAL BODIES: No fractures or dislocation. DISCS: No significant disc disease. FACETS, LATERAL MASSES, POSTERIOR ELEMENTS: No fractures. No dislocation. No acute findings. HARDWARE: None in the spine. VISUALIZED RIBS: No fractures. LUNG APICES AND SOFT TISSUES: No significant or acute findings. OTHER: No other significant finding. IMPRESSION: NO ACUTE OR SIGNIFICANT FINDINGS IN THE CERVICAL SPINE. TECHNICAL DOCUMENTATION: JOB ID: [id number] Quality ID # [id number]: Final reports with documentation of one or more dose reduction techniques (e.g., Au tomated exposure control, adjustment of the mA and/or kV according to patient size, use of iterative reconstruction technique) 2010 [employer]- All Rights Reserved
[2016-12-14] MEDS: NORMAL SALINE 1000 ML 1,000 ML IV PRN ×2 (20:49→21:08)
[2016-12-14 20:54] LABS: ABSOLUTE BASOPHILS # (AUTO) 0.1 10^3/uL (0.0-0.2); ABSOLUTE LYMPHOCYTES (AUTO) 2.5 10^3/uL (0.5-4.7); ABSOLUTE MONOCYTES (AUTO) 0.4 10^3/uL (0.1-1.4); ABSOLUTE NEUT (AUTO) 9.9 10^3/uL (1.7-8.2); BASOPHILS % (AUTO) 0.4 % (0-2); EOSINOPHILS % (AUTO) 0.2 % (0-6); HEMATOCRIT 49.1 % (37.9-51.0); HEMOGLOBIN 16.8 g/dL (13.5-17.0); HGB HCT DIFFERENCE 1.3; LYMPHOCYTES % (AUTO) 19.4 % (13-45); MEAN CORPUSCULAR HEMOGLOBIN 28.8 pg (27.0-33.4); MEAN CORPUSCULAR HGB CONC 34.2 g/dL (32.0-36.0); MEAN CORPUSCULAR VOLUME 84 fl (80-97); MONOCYTES % (AUTO) 3.5 % (3-13); RED BLOOD COUNT 5.82 10^6/uL (4.35-5.55); RED CELL DISTRIBUTION WIDTH 13.3 % (11.5-14.0); SEGMENTED NEUTROPHILS % (AUTO) 76.5 % (42-78); WHITE BLOOD COUNT 12.9 10^3/uL (4.0-10.5)
[2016-12-14] MEDS ORDERED: HALOPERIDOL 5 MG TABLET PO ONE (20:56)
[2016-12-14 21:23] LABS: ALANINE AMINOTRANSFERASE 43 U/L (21-72); ALBUMIN 4.6 g/dL (3.5-5.0); ALKALINE PHOSPHATASE 71 U/L (38-126); ASPARTATE AMINO TRANSFERASE 29 U/L (17-59); BILIRUBIN,DIRECT 0.3 mg/dL (0.0-0.4); BILIRUBIN,TOTAL 1.3 mg/dL (0.2-1.3); BLOOD UREA NITROGEN 11 mg/dL (7-20); CHLORIDE 95 mmol/L (98-107); CREATINE KINASE 249 U/L (55-170); CREATININE RESULT 0.85 mg/dL (0.52-1.25); GLUCOSE 303 mg/dL (75-110); POTASSIUM 4.1 mmol/L (3.6-5.0); TOTAL PROTEIN 7.5 g/dL (6.3-8.2)
[2016-12-14 21:25] LABS: ALCOHOL < 10 mg/dL (NONE DETECTED)
[2016-12-14 21:32] LABS: CARBON DIOXIDE 25 mmol/L (22-30); SODIUM 138.4 mmol/L (137-145)
[2016-12-14 21:37] LABS: ANION GAP 18 (5-19)
[2016-12-14 22:09] VITALS: BP 116/87
--- NOTE | 2016-12-17 09:22 | EKG REPORT ---
SEVERITY:- ABNORMAL ECG - SINUS RHYTHM NONSPECIFIC INTRAVENTRICULAR CONDUCTION DELAY : Confirmed by: Lexie Pompa 17-Dec-2016 09:21:43
== END 2016-12-14 22:20 | disposition home or self-care (01) ==
LOC: ER 20:00
DX: S09.90XA Unspecified injury of head, initial encounter (principal); S01.81XA Laceration without foreign body of other part of head, initial encounter; F20.9 Schizophrenia, unspecified; X78.0XXA Intentional self-harm by sharp glass, initial encounter; Y92.149 Unspecified place in prison as the place of occurrence of the external cause; I10 Essential (primary) hypertension; E11.9 Type 2 diabetes mellitus without complications; K21.9 Gastro-esophageal reflux disease without esophagitis; Z86.14 Personal history of Methicillin resistant Staphylococcus aureus infection; Z88.0 Allergy status to penicillin; Z90.49 Acquired absence of other specified parts of digestive tract; Z88.6 Allergy status to analgesic agent
CPT/HCPCS: 93005; 99285; 36415; 80307; 82550; 85025; 80053; 70450; 72125; 93010; J7030; 96360; 96361

== ENCOUNTER 2016-12-15 15:59 | Emergency (ER) | payer MEDICAID, OTHER ==
[2016-12-15 16:04] VITALS: BP 138/84
--- NOTE | 2016-12-15 17:09 | ER Document Report ---
ED General - General Chief Complaint: Head Injury without LOC Stated Complaint: HEAD INJURY Time Seen by Provider: 12/15/16 16:11 Mode of Arrival: Medic Information source: Patient, Emergency Med Personnel Notes: 41-year-old male who is on multiple psychiatric medications but has not been taking any due to being in senior living presents with complaints of striking his head multiple times because of the voices are in his head. Patient denies any homicidal or suicidal ideations TRAVEL OUTSIDE OF THE [place] IN LAST 30 DAYS: No - HPI Onset: Just prior to arrival Onset/Duration: Sudden Quality of pain: No pain Severity: Mild Pain Level: Denies Associated symptoms: Headache Exacerbated by: Denies Relieved by: Denies Similar symptoms previously: Yes Recently seen / treated by doctor: Yes - Related Data Allergies/Adverse Reactions: Penicillins Allergy (Severe, Verified 12/14/16 20:25) ketorolac tromethamine [From Toradol] Allergy (Verified 12/14/16 20:25) acetaminophen [From Tylenol] Adverse Reaction (Mild, Verified 12/14/16 20:25) Nausea codeine [Codeine] Adverse Reaction (Verified 12/14/16 20:25) Nausea tramadol [Tramadol] Adverse Reaction (Verified 12/14/16 20:25) Nausea tramadol HCl [From Ultram] Adverse Reaction (Verified 12/14/16 20:25) Nausea Past Medical History - Social History Smoking Status: Current Every Day Smoker Cigarette use (# per day): Yes Chew tobacco use (# tins/day): No Smoking Education Provided: No Frequency of alcohol use: None Drug Abuse: None Family History: Reviewed & Not Pertinent, Hyperlipidemia Patient has suicidal ideation: No Patient has homicidal ideation: No - Past Medical History Cardiac Medical History: Reports: Hx Hypertension Pulmonary Medical History: Reports: Hx Asthma Denies: Hx Tuberculosis Endocrine Medical History: Reports: Hx Diabetes Mellitus Type 1, Hx Diabetes Mellitus Type 2 Renal/ Medical History: Reports: Hx Kidney Stones. Denies: Hx Peritoneal Dialysis GI Medical History: Reports: Hx Gastroesophageal Reflux Disease Musculoskeltal Medical History: Reports Hx Arthritis - chronic back pain Skin Medical History: Reports Hx MRSA Psychiatric Medical History: Reports: Hx Anxiety, Hx Attention Deficit Hyperactivity Disorder, Hx Bipolar Disorder, Hx Depression, Hx Schizophrenia Past Surgical History: Reports: Hx Cholecystectomy, Hx Orthopedic Surgery - r pinkie, L leg fx as child - Immunizations Hx Diphtheria, Pertussis, Tetanus Vaccination: Yes - 10/19/12 Review of Systems - Review of Systems Notes: REVIEW OF SYSTEMS: CONSTITUTIONAL : Denies fever, chills, or sweats. Denies recent illness. EENT: Denies eye, ear, throat, or mouth pain or symptoms. Denies nasal or sinus congestion or discharge. Denies throat, tongue, or mouth swelling or difficulty swallowing. CARDIOVASCULAR: Denies chest pain. Denies palpitations or racing or irregular heart beat. Denies ankle edema. RESPIRATORY: Denies cough, cold, or chest congestion. Denies shortness of breath, difficulty breathing, or wheezing. GASTROINTESTINAL: Denies abdominal pain or distention. Denies nausea, vomiting , or diarrhea. Denies blood in vomitus, stools, or per rectum. Denies black, tarry stools. Denies constipation. GENITOURINARY: Denies difficulty urinating, painful urination, burning, frequency, blood in urine, or discharge. MUSCULOSKELETAL: Denies back or neck pain or stiffness. Denies joint pain or swelling. SKIN: Denies rash, lesions or sores. HEMATOLOGIC : Denies easy bruising or bleeding. LYMPHATIC: Denies swollen, enlarged glands. NEUROLOGICAL: Admits to head injury PSYCHIATRIC: Admits to auditory hallucinations ALL OTHER SYSTEMS REVIEWED AND NEGATIVE. Dictation was performed using [employer] voice recognition software PHYSICAL EXAMINATION: GENERAL: Well-appearing, well-nourished and in no acute distress. HEAD: Supple superficial abrasions of the frontal scalp EYES: Pupils equal round and reactive to light, extraocular movements intact, sclera anicteric, conjunctiva are normal. ENT: Nares patent, oropharynx clear without exudates. Moist mucous membranes. NECK: Normal range of motion, supple without lymphadenopathy LUNGS: Breath sounds clear to auscultation bilaterally and equal. No wheezes rales or rhonchi. HEART: Regular rate and rhythm without murmurs ABDOMEN: Soft, nontender, nondistended abdomen. No guarding, no rebound. No masses appreciated. Musculoskeletal: Normal range of motion, no pitting or edema. No cyanosis. NEUROLOGICAL: Cranial nerves grossly intact. Normal speech, normal gait. Normal sensory, motor exams PSYCH: Normal mood, normal affect. SKIN: Warm, Dry, normal turgor, no rashes or lesions noted. Physical Exam - Vital signs Vitals: Temp Pulse Resp BP Pulse Ox 98.7 F 85 18 138/84 H 97 12/15/16 16:03 12/15/16 16:03 12/15/16 16:03 12/15/16 16:03 12/15/16 16:03 Course - Re-evaluation Re-evalutation: 12/15/16 17:18 CT head ordered immediately mental health evaluation requested 12/15/16 17:43 Patient was evaluated by mental health, we agree that patient does not meet IVC criteria, he appears to be looking for secondary gains, he was released from custody of police and since we are not IV seen and patient wishes to leave AGAINST MEDICAL ADVICE prior to any of treatment. After performing a Medical Screening Examination, I spoke with the patient at length in regards to leaving the hospital against medical advice. I do not believe the patient should leave but the patient is alert oriented x4, understands the risks and benefits of staying and leaving including disability and . Pt understands that he can return at any time for further care and is more than welcome to do so. Pt verbalizes this understanding. - Vital Signs Vital signs: Temp Pulse Resp BP Pulse Ox 98.7 F 85 18 138/84 H 97 12/15/16 16:03 12/15/16 16:03 12/15/16 16:03 12/15/16 16:03 12/15/16 16:03 - Diagnostic Test Radiology reviewed: Image reviewed, Reports reviewed Discharge - Discharge Clinical Impression: Chronic schizophrenia Laceration of forehead Qualifiers: Encounter type: initial encounter Qualified Code(s): S01.81XA - Laceration without foreign body of other part of head, initial encounter Head injury Qualifiers: Encounter type: initial encounter Qualified Code(s): S09.90XA - Unspecified injury of head, initial encounter Condition: Stable Disposition: AGAINST MEDICAL ADVICE Additional Instructions: Please follow-up with the care plan provided to you by mental health team return immediately if there are any other concerns
--- NOTE | 2016-12-15 17:28 | RADIOLOGY REPORT (SQ) ---
EXAM DESCRIPTION: CT HEAD WITHOUT COMPLETED DATE/TIME: 12/15/2016 5:14 pm REASON FOR STUDY: head injury COMPARISON: None. TECHNIQUE: Axial images acquired through the brain without intravenous contrast. Images reviewed wi th bone, brain and subdural windows. Images stored on PACS. All CT scanners at this facility use dose modulation, iterative reconstruction, and/or weight based d osing when appropriate to reduce radiation dose to as low as reasonably achievable (ALARA). [facility]: Dose Right [facility]: CareDose [facility]: Dose Right [facility]: Teradose 4D [facility]: Amperion RADIATION DOSE: 129.22 mGy. LIMITATIONS: None. FINDINGS: VENTRICLES: Normal size and contour. CEREBRUM: No masses. No hemorrhage. No midline shift. Normal greenberg/white matter differentiation. N o evidence for acute infarction. CEREBELLUM: No masses. No hemorrhage. No alteration of density. No evidence for acute infarction. EXTRAAXIAL SPACES: No fluid collections. No masses. ORBITS AND GLOBE: No intra- or extraconal masses. Normal contour of globe without masses. CALVARIUM: No fracture. PARANASAL SINUSES: No fluid or mucosal thickening. SOFT TISSUES: No mass or hematoma. OTHER: No other significant finding. IMPRESSION: NORMAL BRAIN CT WITHOUT CONTRAST. TECHNICAL DOCUMENTATION: JOB ID: [id number] Quality ID # [id number]: Final reports with documentation of one or more dose reduction techniques (e.g., Au tomated exposure control, adjustment of the mA and/or kV according to patient size, use of iterative reconstruction technique) 2010 [employer]- All Rights Reserved
--- NOTE | 2016-12-15 17:58 | PSYCHOLOGICAL NOTE ---
Psych Note - Psych Note Psych Note: 41-year-old male who is on multiple psychiatric medications but has not been taking any due to being in group home presents with complaints of striking his head multiple times because of the voices are in his head. Patient denies any homicidal or suicidal ideations. She is currently in [facility] accompanied by 's department. Patient was being discharged from group home during [facility] visit Patient disclosed he has been institutionalized for many years. He continued disclosed that he has been hearing voices. He states the voices are inside his head. When asked if there female patient states they are the devil. Patient states they say all different things and he is hurt him all his life. He continued disclosed that he hears them "all the time" when asked for clarification patient confirmed that he hears them nonstop 24 hours a day 7 days a week. Patient states that he sometimes sees that are not there. Patient states that he sees people in color. He states the last time he saw something was on the when he was here in the [facility] ED previously. He states he knows they are not there because people say they are not. Patient disclosed that he is currently receiving treatment in [place] because "no Doctors will see me around here." Patient states that he is seen every 3 months; his next appointment is the sixth of this month. Patient states that he has every single diagnosis and takes invega, Adderall, Xanax, in addition to multiple other medications. When asked if patient has somewhere to live he states "yes for the moment, but I do not know what will happen after I leaves here." When it was explained patient cannot live in the [facility] ED patient explains his has a no contact order against him so he cannot go home. Patient is alert and orientated to person place time and circumstance. Patient' s mood is irritable with restricted affect. Patient denies suicidal and homicidal ideation. Patient endorses auditory visual hallucinations; patient is not demonstrating any behavior congruent with responding to internal stimuli. Patient describes hearing voices "24 hours a day 7 days a week." No delusions are noted. Thought process is currently organized and linear. Conversational speech is within normal rate tone and prosody. Eye contact was well-maintained. Intellectual abilities appear to be within average range. Attention and concentration are good. Insight, judgment, impulse control are fair. V 62.9 (Z65.9) unspecified problem related to unspecified psychosocial circumstance Impression\\plan: Patient is psychiatrically clear for discharge. Patient is recommended to follow-up with outpatient services patient has a appointment with his outpatient mental health provider in [place] on December 19. Patient currently does not have access to his psychiatric medications and needs assistance for the next 4 days. Patient endorses auditory and visual hallucinations however patient reports of hallucinations are not congruent with documented understanding of hallucinations; patient hearing hallucinations "all the time" 05/02. Patient behaviors working with attempting to achieve secondary gain. Dr. Blood was consulted attending physician is in agreement with recommendations and disposition.
== END 2016-12-15 18:25 | disposition left against medical advice (07) ==
LOC: ER 15:59
DX: S09.90XA Unspecified injury of head, initial encounter (principal); S01.81XA Laceration without foreign body of other part of head, initial encounter; F20.9 Schizophrenia, unspecified; W22.8XXA Striking against or struck by other objects, initial encounter; F17.210 Nicotine dependence, cigarettes, uncomplicated
CPT/HCPCS: 70450; 99281

== ENCOUNTER 2016-12-16 20:57 | Emergency (ER) | payer OTHER, MEDICAID ==
[2016-12-16 22:58] LABS: ABSOLUTE BASOPHILS # (AUTO) 0.1 10^3/uL (0.0-0.2); ABSOLUTE LYMPHOCYTES (AUTO) 2.8 10^3/uL (0.5-4.7); ABSOLUTE MONOCYTES (AUTO) 0.5 10^3/uL (0.1-1.4); ABSOLUTE NEUT (AUTO) 8.1 10^3/uL (1.7-8.2); BASOPHILS % (AUTO) 0.5 % (0-2); EOSINOPHILS % (AUTO) 0.1 % (0-6); HEMATOCRIT 46.4 % (37.9-51.0); HEMOGLOBIN 15.8 g/dL (13.5-17.0); LYMPHOCYTES % (AUTO) 24.5 % (13-45); MEAN CORPUSCULAR HEMOGLOBIN 28.8 pg (27.0-33.4); MEAN CORPUSCULAR VOLUME 85 fl (80-97); MONOCYTES % (AUTO) 4.5 % (3-13); RED BLOOD COUNT 5.49 10^6/uL (4.35-5.55); SEGMENTED NEUTROPHILS % (AUTO) 70.4 % (42-78); WHITE BLOOD COUNT 11.4 10^3/uL (4.0-10.5)
[2016-12-16 23:12] LABS: ALANINE AMINOTRANSFERASE 37 U/L (21-72); ALBUMIN 4.2 g/dL (3.5-5.0); ALCOHOL < 10 mg/dL (NONE DETECTED); ALKALINE PHOSPHATASE 63 U/L (38-126); APPEARANCE,URINE CLEAR; ASPARTATE AMINO TRANSFERASE 26 U/L (17-59); BILIRUBIN,DIRECT 0.2 mg/dL (0.0-0.4); BILIRUBIN,TOTAL 1.5 mg/dL (0.2-1.3); BILIRUBIN,URINE NEGATIVE (NEGATIVE); BLOOD UREA NITROGEN 7 mg/dL (7-20); CREATININE RESULT 0.78 mg/dL (0.52-1.25); GLUCOSE 321 mg/dL (75-110); GLUCOSE, URINE >=500 mg/dL (NEGATIVE); KETONES,URINE NEGATIVE (NEGATIVE); LEUKOCYTE ESTERASE,URINE NEGATIVE (NEGATIVE); NITRITE,URINE NEGATIVE (NEGATIVE); POTASSIUM 3.7 mmol/L (3.6-5.0); PROTEIN,URINE NEGATIVE (NEGATIVE); URINE SPECIFIC GRAVITY 1.027; UROBILINOGEN,URINE NEGATIVE mg/dL (<2.0)
[2016-12-16 23:20] LABS: ANION GAP 18 (5-19); CARBON DIOXIDE 22 mmol/L (22-30); CHLORIDE 99 mmol/L (98-107); SODIUM 138.8 mmol/L (137-145)
[2016-12-16 23:33] LABS: URINE BARBITURATES SCREEN NEGATIVE; URINE METHADONE SCREEN NEGATIVE; URINE OPIATES LOW NEGATIVE; URINE PHENCYCLIDINE SCREEN NEGATIVE
[2016-12-17] MEDS ORDERED: INSULIN REG, HUMAN 100 UNIT/ML 3 ML VIAL (PYX) SUBCUT ONE (00:04)
--- NOTE | 2016-12-17 04:53 | ER Document Report ---
ED Psych Disorder / Suicide - General Chief Complaint: Suicidal Ideation Stated Complaint: SUICIDAL IDEATION Time Seen by Provider: 12/16/16 21:59 Mode of Arrival: Ambulatory Information source: Patient Notes: This is a 41-year-old male with a previous psychiatric history schizophrenia and bipolar as well as other medical problems who presents with persistent suicidal ideation. He has been seen multiple times over the past few weeks for suicidal ideation. He states that tonight he feels that this will be his last attempt to get help. He states that he is having thoughts of jumping off a bridge, or crashing his vehicle. He does have a prior history of self injury in the past as well as overdose. He states that he uses cocaine in order to deal with "the voices in my head". Patient states that since he left the hospital yesterday he has been using cocaine. He still endorses audio hallucinations and states that the voices tell him to harm himself. TRAVEL OUTSIDE OF THE [place] IN LAST 30 DAYS: No - Related Data Allergies/Adverse Reactions: Penicillins Allergy (Severe, Verified 12/14/16 20:25) ketorolac tromethamine [From Toradol] Allergy (Verified 12/14/16 20:25) acetaminophen [From Tylenol] Adverse Reaction (Mild, Verified 12/14/16 20:25) Nausea codeine [Codeine] Adverse Reaction (Verified 12/14/16 20:25) Nausea tramadol [Tramadol] Adverse Reaction (Verified 12/14/16 20:25) Nausea tramadol HCl [From Ultram] Adverse Reaction (Verified 12/14/16 20:25) Nausea Past Medical History - General Information source: Patient, [facility] Records - Social History Smoking Status: Never Smoker Chew tobacco use (# tins/day): Yes Frequency of alcohol use: Occasional Drug Abuse: Cocaine Family History: Reviewed & Not Pertinent, Hyperlipidemia Patient has suicidal ideation: Yes - Past Medical History Cardiac Medical History: Reports: Hx Hypertension Pulmonary Medical History: Reports: Hx Asthma Denies: Hx Tuberculosis Endocrine Medical History: Reports: Hx Diabetes Mellitus Type 2 Renal/ Medical History: Reports: Hx Kidney Stones. Denies: Hx Peritoneal Dialysis GI Medical History: Reports: Hx Gastroesophageal Reflux Disease Musculoskeltal Medical History: Reports Hx Arthritis - chronic back pain Skin Medical History: Reports Hx MRSA Psychiatric Medical History: Reports: Hx Anxiety, Hx Attention Deficit Hyperactivity Disorder, Hx Bipolar Disorder, Hx Depression, Hx Schizophrenia Past Surgical History: Reports: Hx Cholecystectomy, Hx Orthopedic Surgery - r pinkie, L leg fx as child - Immunizations Hx Diphtheria, Pertussis, Tetanus Vaccination: Yes - 10/19/12 Review of Systems - Review of Systems Constitutional: denies: Chills, Fever EENT: No symptoms reported Cardiovascular: No symptoms reported Respiratory: No symptoms reported Gastrointestinal: No symptoms reported Genitourinary: No symptoms reported Musculoskeletal: No symptoms reported Hematologic/Lymphatic: No symptoms reported Neurological/Psychological: See HPI Physical Exam - Notes Notes: PHYSICAL EXAMINATION: GENERAL: Well-appearing adult male who is conversant and cooperative with exam. No acute HEAD: Atraumatic, normocephalic. EYES: Pupils equal round and reactive to light, extraocular movements intact, sclera anicteric, conjunctiva are normal. ENT: nares patent, oropharynx clear without exudates. Moist mucous membranes. NECK: Normal range of motion, supple without lymphadenopathy LUNGS: Breath sounds clear to auscultation bilaterally and equal. No wheezes rales or rhonchi. HEART: Regular rate and rhythm without murmurs ABDOMEN: Soft, nontender, normoactive bowel sounds. EXTREMITIES: Normal range of motion NEUROLOGICAL: No gross focal motor or sensory deficits appreciated PSYCH: Sad mood with depressed affect. Patient is at times tearful. He states that he hears voices daily but does not appear at this time to be responding to any internal stimuli. He does endorse active suicidal ideation. SKIN: Linear 3 cm volar right wrist healing wound from prior self inflicted laceration Course - Re-evaluation Re-evalutation: 12/17/16 04:59 IVC paperwork has been completed. Patient will be evaluated by the mental health team in the morning - Laboratory Result Diagrams: 12/16/16 22:40 12/16/16 22:40 Laboratory results interpreted by me: 12/16/16 12/16/16 12/16/16 22:40 22:40 22:40 WBC 11.4 H Glucose 321 H Total Bilirubin 1.5 H Urine Glucose (UA) >=500 H Salicylates < 1.0 L Acetaminophen < 10 L Discharge - Discharge Clinical Impression: Suicidal ideation, Cocaine abuse Schizophrenia Qualifiers: Schizophrenia type: unspecified Qualified Code(s): F20.9 - Schizophrenia, unspecified Hyperglycemia due to type 2 diabetes mellitus Qualifiers: Diabetes mellitus intermediate teacher insulin use: without retirement use Qualified Code(s ): E11.65 - Type 2 diabetes mellitus with hyperglycemia Condition: Stable Disposition: PSYCH HOSP/UNIT
--- NOTE | 2016-12-17 09:42 | ER Document Report ---
Doctor's Note Notes: 12/17/16 09:41 I have evaluated this pt. this am and he still feels he could hurt himself. He does not want to go home. His physical exam is normal and he is awaiting disposition per mental health.
--- NOTE | 2016-12-17 10:02 | ER Document Report ---
ED Psych Disorder / Suicide - General Chief Complaint: Suicidal Ideation Stated Complaint: SUICIDAL IDEATION Time Seen by Provider: 12/16/16 21:59 Mode of Arrival: Ambulatory TRAVEL OUTSIDE OF THE [place] IN LAST 30 DAYS: No - HPI Notes: Patient presented to [facility] with a self reported previous psychiatric history schizophrenia and bipolar as well as other medical problems who presents with persistent suicidal ideation. He has been seen multiple times over the past few weeks for suicidal ideation. He states that tonight he feels that this will be his last attempt to get help. He states that he is having thoughts of jumping off a bridge, or crashing his vehicle. He does have a prior history of self injury in the past as well as overdose. He states that he uses cocaine in order to deal with "the voices in my head". Patient states that since he left the hospital yesterday he has been using cocaine. He still endorses audio hallucinations and states that the voices tell him to harm himself. Clinician notes attending nurse documented: Pt came up to [employer] desk yelling "If you don't help me I am going to kill myself !" Pt refused to fill out paperwork to check in to be seen. Pt yelling loudly " I want to kill myself! You can't leave me alone!" Security came and calmed pt. Pt cooperative during assessment. Pt keeps repeating "I just wanna kill myself". Patient continues to endorse having hallucinations nonstop 24 hours a day 7 days a week. Patient self reports having schizophrenia; clinician notes patient has multiple visits to [facility] (46 in the last 5 years) and has never been diagnosed with schizophrenia or other psychosis by Behavioral Health. Prior to recent back to back visits; was seen only once (2014) for mental health concerns. Patient is currently going through domestic discord as identified previously and currently has nowhere to live patient is verbally aggressive with clinician and threatens to kill himself however refuses to follow-up with mental health services previously identified with patient. Additionally patient states he takes Invega, Adderall, and Xanax received a prescription from a provider in [place]; clinician unable to verify this information. Patient is only prescribed pain medications per patient's pharmacy fax. Patient is alert and oriented to person place time and circumstance. Mood is mainly depressed, however there is some lability (between depressed and irritable). Patient endorses suicidal ideation denies homicidal ideation. Patient continues to endorse auditory visual hallucinations "all the time" patient is not demonstrating any behavior congruent to responding to internal stimuli. No delusions are noted. Thought processes organized and linear. Conversational speech was short and argumentative. Eye contact was fair. Intellectual abilities appear to be average range. Attention and concentration are poor. Insight, judgment, impulse control are poor. Diagnosis: 292.9 (F14.99) Unspecified Cocaine Related Disorder UDS positive for Cocaine and patient self reports frequent use R/O 296.80 (F31.9) Unspecified Bipolar and Related Disorder Current depressed mood, tearful, crying Some mood lability (depressed and irritable mood) Drug use (unsure if symptoms are directly related to said drug use) Impression\\plan: Patient is recommended for rescind of IVC and considered psychiatrically clear for discharge. Patient continues to complain of hallucinations that occur nonstop 24 hours a day 7 days a week; experiencing hallucinations 24/ does not correlate with known manifestations of hallucinations. patient abuses cocaine and there appears to be a correlation between cocaine use and patient's stated symptoms. Patient is experiencing domestic discord currently and has nowhere to live. Patient previously identified an appointment for Monday, December 19, 2016 for his mental health [place]. It is unclear at this time if patient has services established in [place]. Patient is recommended to follow-up with [facility] locally to address his mental health and substance abuse. Dr. Blood was consulted on the care and management of this patient; attending physician is in agreement with recommendations and disposition. - Related Data Allergies/Adverse Reactions: Penicillins Allergy (Severe, Verified 12/14/16 20:25) ketorolac tromethamine [From Toradol] Allergy (Verified 12/14/16 20:25) acetaminophen [From Tylenol] Adverse Reaction (Mild, Verified 12/14/16 20:25) Nausea codeine [Codeine] Adverse Reaction (Verified 12/14/16 20:25) Nausea tramadol [Tramadol] Adverse Reaction (Verified 12/14/16 20:25) Nausea tramadol HCl [From Ultram] Adverse Reaction (Verified 12/14/16 20:25) Nausea Past Medical History - General Information source: Patient, [facility] Records - Social History Smoking Status: Never Smoker Chew tobacco use (# tins/day): Yes Frequency of alcohol use: Occasional Drug Abuse: Cocaine Family History: Reviewed & Not Pertinent, Hyperlipidemia Patient has suicidal ideation: Yes - Past Medical History Cardiac Medical History: Reports: Hx Hypertension Pulmonary Medical History: Reports: Hx Asthma Denies: Hx Tuberculosis Endocrine Medical History: Reports: Hx Diabetes Mellitus Type 1, Hx Diabetes Mellitus Type 2 Renal/ Medical History: Reports: Hx Kidney Stones. Denies: Hx Peritoneal Dialysis GI Medical History: Reports: Hx Gastroesophageal Reflux Disease Musculoskeltal Medical History: Reports Hx Arthritis - chronic back pain Skin Medical History: Reports Hx MRSA Psychiatric Medical History: Reports: Hx Anxiety, Hx Attention Deficit Hyperactivity Disorder, Hx Bipolar Disorder, Hx Depression, Hx Schizophrenia Past Surgical History: Reports: Hx Cholecystectomy, Hx Orthopedic Surgery - r pinkie, L leg fx as child - Immunizations Hx Diphtheria, Pertussis, Tetanus Vaccination: Yes - 10/19/12 Physical Exam - Vital signs Vitals: Temp Pulse Resp BP Pulse Ox 97.7 F 71 18 133/79 H 95 12/17/16 07:13 12/17/16 07:13 12/17/16 07:13 12/17/16 07:13 12/17/16 07:13 Course - Vital Signs Vital signs: Temp Pulse Resp BP Pulse Ox 97.7 F 71 18 133/79 H 95 12/17/16 07:13 12/17/16 07:13 12/17/16 07:13 12/17/16 07:13 12/17/16 07:13 - Laboratory Result Diagrams: 12/16/16 22:40 12/16/16 22:40 Laboratory results interpreted by me: 12/16/16 12/16/16 12/16/16 22:40 22:40 22:40 WBC 11.4 H Glucose 321 H POC Glucose Total Bilirubin 1.5 H Urine Glucose (UA) >=500 H Salicylates < 1.0 L Acetaminophen < 10 L 12/17/16 05:04 WBC Glucose POC Glucose 199 H Total Bilirubin Urine Glucose (UA) Salicylates Acetaminophen Discharge - Discharge Clinical Impression: Suicidal ideation, Cocaine abuse, Bipolar II disorder Hyperglycemia due to type 2 diabetes mellitus Qualifiers: Diabetes mellitus mcfp insulin use: without terminal gauger use Qualified Code(s ): E11.65 - Type 2 diabetes mellitus with hyperglycemia Clinical Impression: (Ruled Out): Schizophrenia Condition: Stable Disposition: HOME, SELF-CARE Additional Instructions: Cocaine Abuse Cocaine causes many dangerous medical problems. Problems can occur even with "usual" amounts. Cocaine affects judgement, creating a sense of invulnerability. Cocaine users often make bad decisions that seem "great" at the time. Most cocaine users eventually will be hurt by bad job performance, damaged personal relations, crime, and unsafe sexual practices. Toxic effects of cocaine can include seizures, hallucinations, delusions, high blood pressure, heart damage, or sudden . There's always the risk of a "bad batch." But heart attacks, brain hemorrhages, or cardiac arrest can occur unpredictably even with "normal" use. Injection of cocaine is risky for abscesses, endocarditis (heart infection) , pneumonia, and AIDS. Withdrawal from cocaine often causes anxiety and drug cravings. Some users become paranoid and psychotic. Many treatment programs are available, but you must make the decision to quit. Medication can be prescribed to control the symptoms of cocaine toxicity (beta blockers or benzodiazepines). Withdrawal symptoms may require tranquilizers. Bipolar Disorder Bipolar disorder is also called manic-depressive disorder. Depression alternates with brain hyperactivity called no. Each phase lasts from several days to a few weeks. We don't know exactly what causes bipolar disorder , but it's treatable. During the "manic phase," you may feel elated and energetic. You may have racing thoughts, rapid speech, increased activity, and grandiose ideas. During this time, you may not realize how poor your judgement is. Inappropriate spending, drug abuse, excessive alcohol use, marriage problems, and irresponsible sexual behavior are common during the manic phase. During the "depressive phase," you might feel depressed, guilty, worthless , fatigued, and unable to concentrate. You might have thoughts of suicide. Good treatments are available for bipolar disorder. Odanah is a classic drug for bipolar disorder, and is still often useful. If the manic phase is very mild, an antidepressant alone can be prescribed. If the manic phase is very severe, an antipsychotic medicine (such as Haldol) may be needed. The treatment must be matched to your symptoms, so it's important to work closely with your psychiatric care provider. Contact your physician, the hospital emergency center, crisis line, or your counsellor if you are losing control or having self-destructive thoughts. DEPRESSION: Your evaluation reveals that you have mental depression. While symptoms may be vague, they often include disturbance of sleep, fatigue, loss of appetite , and general loss of interest in life. While depression may be a side effect of drugs, or a reaction to a major change in your life, many cases have no known cause. If depression is acute, and related to a major loss in your life, you can expect it to clear completely with time. If you have been depressed a long time , are prone to repeated bouts of depression or low mood, or have been thinking of suicide, get help. Depression can be treated with anti-depressant medication and counselling. Long-term depression will often take a few weeks to clear, even with appropriate medication. Follow-up care is important. FOLLOW-UP CARE: Please follow up with [facility] for mental health and substance abuse treatment on 12/18/2016. .~ If you experience worsening or a significant change in your symptoms, notify the physician immediately or return to the Emergency Department at any time for re-evaluation. Referrals: [facility] [Outside] - Follow up tomorrow
[2016-12-17 10:23] VITALS: BP 127/72
--- NOTE | 2016-12-17 23:40 | EKG REPORT ---
SEVERITY:- BORDERLINE ECG - SINUS TACHYCARDIA BORDERLINE T WAVE ABNORMALITIES BORDERLINE PROLONGED QT INTERVAL : Confirmed by: Lexie Pompa 17-Dec-2016 23:39:08
== END 2016-12-17 10:12 | disposition home or self-care (01) ==
LOC: ER 20:57
DX: R45.851 Suicidal ideations (principal); F14.10 Cocaine abuse, uncomplicated; F31.9 Bipolar disorder, unspecified; E11.65 Type 2 diabetes mellitus with hyperglycemia; J45.909 Unspecified asthma, uncomplicated; I10 Essential (primary) hypertension; Z88.0 Allergy status to penicillin; Z88.6 Allergy status to analgesic agent; Z87.442 Personal history of urinary calculi; Z86.14 Personal history of Methicillin resistant Staphylococcus aureus infection; Z90.49 Acquired absence of other specified parts of digestive tract
CPT/HCPCS: 93005; 99285; 36415; 82962; 80307 ×4; 85025; 80053; 81001; 93010; J1815

== ENCOUNTER 2016-12-17 13:33 | Emergency (ER) | payer MEDICAID, OTHER ==
[2016-12-17] MEDS ORDERED: LIDOCAINE 1%/EPINEPHRINE INJ 20 ML VIAL INJ ONE (14:08)
[2016-12-17] MEDS ORDERED: DIPH/PERTUSS(ACELL)/TETANUS VAC/PF 0.5 ML SYR (>=10YO) IM ONE (14:09)
[2016-12-17 14:38] LABS: ABSOLUTE LYMPHOCYTES (AUTO) 1.3 10^3/uL (0.5-4.7); ABSOLUTE MONOCYTES (AUTO) 0.4 10^3/uL (0.1-1.4); ABSOLUTE NEUT (AUTO) 11.3 10^3/uL (1.7-8.2); BASOPHILS % (AUTO) 0.3 % (0-2); EOSINOPHILS % (AUTO) 0.2 % (0-6); HEMATOCRIT 47.1 % (37.9-51.0); HGB HCT DIFFERENCE 0.9; LYMPHOCYTES % (AUTO) 10.1 % (13-45); MEAN CORPUSCULAR HEMOGLOBIN 28.7 pg (27.0-33.4); MEAN CORPUSCULAR HGB CONC 34.1 g/dL (32.0-36.0); MEAN CORPUSCULAR VOLUME 84 fl (80-97); MONOCYTES % (AUTO) 3.3 % (3-13); RED CELL DISTRIBUTION WIDTH 12.8 % (11.5-14.0); SEGMENTED NEUTROPHILS % (AUTO) 86.1 % (42-78); WHITE BLOOD COUNT 13.2 10^3/uL (4.0-10.5)
[2016-12-17 14:57] LABS: ALANINE AMINOTRANSFERASE 38 U/L (21-72); ALBUMIN 4.1 g/dL (3.5-5.0); ALKALINE PHOSPHATASE 73 U/L (38-126); ANION GAP 13 (5-19); ASPARTATE AMINO TRANSFERASE 25 U/L (17-59); BILIRUBIN,DIRECT 0.2 mg/dL (0.0-0.4); BILIRUBIN,TOTAL 2.1 mg/dL (0.2-1.3); BLOOD UREA NITROGEN 11 mg/dL (7-20); CALCIUM 9.5 mg/dL (8.4-10.2); CARBON DIOXIDE 23 mmol/L (22-30); CHLORIDE 101 mmol/L (98-107); CREATININE RESULT 0.81 mg/dL (0.52-1.25); GLUCOSE 359 mg/dL (75-110); POTASSIUM 3.9 mmol/L (3.6-5.0); SODIUM 137.2 mmol/L (137-145); TOTAL PROTEIN 6.8 g/dL (6.3-8.2)
[2016-12-17 14:58] LABS: ALCOHOL < 10 mg/dL (NONE DETECTED)
[2016-12-17] MEDS ORDERED: HALOPERIDOL LACTATE INJ 5 MG/1 ML VIAL IM ONE (15:30)
[2016-12-17] MEDS ORDERED: DIPHENHYDRAMINE HCL 50 MG/ML VIAL IM ONE (15:30)
--- NOTE | 2016-12-17 15:32 | ER Document Report ---
ED Psych Disorder / Suicide - General Chief Complaint: Suicidal Ideation Stated Complaint: SUICIDIAL IDEATION Time Seen by Provider: 12/17/16 13:47 Mode of Arrival: Ambulatory Information source: Patient TRAVEL OUTSIDE OF THE [place] IN LAST 30 DAYS: No - HPI Patient complains to provider of: Bizarre behavior, Hallucinating, Suicidal ideation, Self injury Onset was: Cannot confirm Quality of pain: Achy Severity: Moderate Pain Level: 3 Suicide Risk Factors: Depressed, Hallucinations, Lack of social support, Male Situational problems related to: Spouse Suicide Attempt Method: Stabbing/Cutting Injury to: Wrist Normal mood: No Associated symptoms: Agitated, Psychomotor agitation Similar symptoms previously: Yes Recently seen / treated by doctor: Yes Notes: Patient is a 41-year-old male who is well known to this emergency room, this is his fourth visit for mental health complaints, today he comes in with self injuries to bilateral wrist after he took a canales and caused lacerations, there are superficial lacerations on the left wrist, however on the right is a deep laceration that required suture repair, he repeatedly states that he wants to , he wants to kill, he repeatedly requested that I tell the devonte in the room with him to leave him alone, and to tell the voices to stop - Related Data Allergies/Adverse Reactions: Penicillins Allergy (Severe, Verified 12/14/16 20:25) ketorolac tromethamine [From Toradol] Allergy (Verified 12/14/16 20:25) acetaminophen [From Tylenol] Adverse Reaction (Mild, Verified 12/14/16 20:25) Nausea codeine [Codeine] Adverse Reaction (Verified 12/14/16 20:25) Nausea tramadol [Tramadol] Adverse Reaction (Verified 12/14/16 20:25) Nausea tramadol HCl [From Ultram] Adverse Reaction (Verified 12/14/16 20:25) Nausea Past Medical History - General Information source: Patient - Social History Smoking Status: Unknown if Ever Smoked Drug Abuse: Cocaine Family History: Reviewed & Not Pertinent, Hyperlipidemia - Past Medical History Cardiac Medical History: Reports: Hx Hypertension Pulmonary Medical History: Reports: Hx Asthma Denies: Hx Tuberculosis Endocrine Medical History: Reports: Hx Diabetes Mellitus Type 1, Hx Diabetes Mellitus Type 2 Renal/ Medical History: Reports: Hx Kidney Stones. Denies: Hx Peritoneal Dialysis GI Medical History: Reports: Hx Gastroesophageal Reflux Disease Musculoskeltal Medical History: Reports Hx Arthritis - chronic back pain Skin Medical History: Reports Hx MRSA Psychiatric Medical History: Reports: Hx Anxiety, Hx Attention Deficit Hyperactivity Disorder, Hx Bipolar Disorder, Hx Depression, Hx Schizophrenia Past Surgical History: Reports: Hx Cholecystectomy, Hx Orthopedic Surgery - r pinkie, L leg fx as child - Immunizations Hx Diphtheria, Pertussis, Tetanus Vaccination: Yes - 10/19/12 Review of Systems - Review of Systems Constitutional: No symptoms reported EENT: No symptoms reported Cardiovascular: No symptoms reported Respiratory: No symptoms reported Gastrointestinal: No symptoms reported Genitourinary: No symptoms reported Male Genitourinary: No symptoms reported Musculoskeletal: No symptoms reported Skin: See HPI Hematologic/Lymphatic: No symptoms reported Neurological/Psychological: See HPI -: Yes All other systems reviewed and negative Physical Exam - Vital signs Vitals: Temp Pulse Resp BP Pulse Ox 98.0 F 113 H 20 139/98 H 96 12/17/16 13:46 12/17/16 13:46 12/17/16 13:46 12/17/16 13:46 12/17/16 13:46 Interpretation: Normal - General General appearance: Appears well, Alert - HEENT Head: Normocephalic, Atraumatic Eyes: Normal Pupils: PERRL - Respiratory Respiratory status: No respiratory distress Chest status: Nontender Breath sounds: Normal Chest palpation: Normal - Cardiovascular Rhythm: Regular Heart sounds: Normal auscultation Murmur: No - Abdominal Inspection: Normal Distension: No distension Bowel sounds: Normal Tenderness: Nontender Organomegaly: No organomegaly - Back Back: Normal, Nontender - Extremities General upper extremity: Normal ROM, Normal temperature General lower extremity: Normal inspection, Nontender, Normal color, Normal ROM , Normal temperature, Normal weight bearing. No: Laci's sign Wrist: Other - Superficial lacerations on the ventral surface of the left wrist , 2+ radial pulses, distal sensation and motor is intact, on the left ventral wrist is a 4 cm deep laceration with jagged edges, 2+ radial pulses, distal sensation and motor is intact - Neurological Neuro grossly intact: Yes Cognition: Normal Orientation: AAOx4 Jose Coma Scale Eye Opening: Spontaneous Jose Coma Scale Verbal: Oriented Hawkins Coma Scale Motor: Obeys Commands Hawkins Coma Scale Total: 15 Speech: Normal Motor strength normal: LUE, RUE, LLE, RLE Sensory: Normal - Psychological Associated symptoms: Normal affect, Normal mood - Skin Skin Temperature: Warm Skin Moisture: Dry Skin Color: Normal Course - Re-evaluation Re-evalutation: 12/17/16 18:35 Given the severity of the self-injurious behavior patient will be IVC for further evaluation by mental health, wound was repaired using sutures, patient is otherwise medically cleared for mental health evaluation and treatment or discharge - Vital Signs Vital signs: Temp Pulse Resp BP Pulse Ox 98.0 F 113 H 20 139/98 H 96 12/17/16 13:46 12/17/16 13:46 12/17/16 13:46 12/17/16 13:46 12/17/16 13:46 - Laboratory Result Diagrams: 12/17/16 14:15 12/17/16 14:15 Laboratory results interpreted by me: 12/17/16 12/17/16 14:15 14:15 WBC 13.2 H RBC 5.60 H Seg Neutrophils % 86.1 H Lymphocytes % 10.1 L Absolute Neutrophils 11.3 H Glucose 359 H Total Bilirubin 2.1 H Salicylates < 1.0 L Acetaminophen < 10 L Procedures - Laceration/Wound Repair Right Wrist Time completed: 15:31 Wound length (cm): 4 Wound's Depth, Shape: Contused tissue Laceration pre-procedure: Sterile PPE donned, Sterile drapes applied, Shur- Clens applied Anesthetic type: 1% Lidocaine w/epi Volume Anesthetic (mLs): 6 Wound explored: Clean Irrigated w/ Saline (mLs): 400 Wound Repaired With: Sutures Suture Size/Type: 3:0, Nylon Number of Sutures: 4 Layer Closure?: No Post-procedure wound care: Sterile dressing applied Post-procedure NV exam normal: Yes Complications: No Hands front picture: 1 - 4 Centimeter laceration Discharge - Discharge Clinical Impression: Self-destructive behavior Depression Qualifiers: Depression Type: unspecified Qualified Code(s): F32.9 - Major depressive disorder, single episode, unspecified Condition: Stable Disposition: PSYCH HOSP/UNIT
[2016-12-17] MEDS ORDERED: INSULIN REG, HUMAN 100 UNIT/ML 3 ML VIAL (PYX) SUBCUT ONE (15:34)
--- NOTE | 2016-12-17 17:02 | PSYCHOLOGICAL NOTE ---
Psych Note - Psych Note Psych Note: Attending nurse noted: Patient presents to ED by EMS transport. Patient awake, crying frantically in stretcher. Patient stating over and over again "I just want to , let me " . Patient then staring at corner stating that there is a devil in the corner of the room, crying out that the devil was coming for him. Patient appearing frightened and continues crying. PAtient with two lacerations noted to inner aspect of both wrists and swollen area on forehead with two small cuts. Per EMS statement, patient cut his wrist with old canales while at [employer]. PAtient called 911 after. Per EMS, patient was also found with old brillo pad. LAcerations on wrists noted to be jagged and right wrist actively bleeding. gauze applied. Patient disclosed he just wants the voices to stop. Patient was covering his face with his hands however then turned looked in the corner and stated very loudly "like the man in the corner." Patient started to loudly argue facing the corner of the room stating the clinician was "not the devil" and to "leave her alone." Patient continued arguing towards the empty section of the room. Orientated to person place time and circumstance. Mood is dysphoric affect. Patient endorses suicidal ideation stating that he wants to . Patient presents with suicidal gesture of cutting his wrist with an old he. Laceration was approximately 4 cm long requiring 4 stitches. Patient denies homicidal ideation. Patient endorses auditory visual hallucinations; behavior is not congruent with responding to internal stimuli. Patient states that he knows that her hallucinations, he has previously endorsed they have occurred 24 hours a day 7 days a week, and when asked about it demonstrates very dramatically about the "man in the room." Delusions are not noted thought process is currently organized and linear. Conversational speech is loud argumentative. Eye contact was poor. Cognitive abilities appear to be currently impaired by crack cocaine use. Diagnosis: 292.9 (F14.99) Unspecified Cocaine Related Disorder UDS positive for Cocaine and patient self reports frequent use R/O Cluster B Personality Disorder; patient has been demonstrating multiple cluster B traits however the current acute setting limits a more specific diagnosis. Impression\\plan:Patient is recommended for IVC. Patient is currently suffering from impaired cognitive abilities possibly from cocaine. This is supported by evidence of a Brillo pad found in his hotel room, positive tox screens, and patient's self-report. patient will be reevaluated. Dr. Blood was consulted on the care and management of this patient attending physician in agreement with recommendations and disposition.
[2016-12-17 19:50] LABS: APPEARANCE,URINE CLEAR; BILIRUBIN,URINE NEGATIVE (NEGATIVE); GLUCOSE, URINE >=500 mg/dL (NEGATIVE); KETONES,URINE NEGATIVE (NEGATIVE); LEUKOCYTE ESTERASE,URINE NEGATIVE (NEGATIVE); NITRITE,URINE NEGATIVE (NEGATIVE); PROTEIN,URINE NEGATIVE (NEGATIVE); URINE SPECIFIC GRAVITY 1.032; UROBILINOGEN,URINE NEGATIVE mg/dL (<2.0)
[2016-12-17 20:05] LABS: URINE BARBITURATES SCREEN NEGATIVE; URINE METHADONE SCREEN NEGATIVE; URINE OPIATES LOW NEGATIVE; URINE PHENCYCLIDINE SCREEN NEGATIVE
--- NOTE | 2016-12-18 11:07 | ER Document Report ---
Doctor's Note Notes: 12/18/16 11:04 Rounds: Chart reviewed and patient interview. Patient reportedly has been very agitated and showing outbursts of anger and bizarre behavior. He pounded his head against the wall causing a laceration in the mid anterior forehead and scalp region to start bleeding again. I do not think sutures are indicated. Patient has sutures in his right wrist and they appear to be doing well. Patient's background shows that he has both schizophrenia and bipolar disorder. He has ADHD and anxiety and having suicidal thoughts, says that he is going to kill himself. Here because he was exhibiting bizarre behavior and hallucinating. Vital signs essentially normal except for a pulse rate of 113. However, patient's drug screen is positive for cocaine. He has a white count of 13,200 but no signs of an infectious process, and this elevation may be stress mechanism related. Patient's blood sugars 359. Patient says that he has been on insulin and metformin in the past and I will start him on his metformin now. Patient seems to be rather agitated at this time. Patient appears to be medically stable for transfer or discharge. Graciela Poe MD
[2016-12-18] MEDS ORDERED: METFORMIN HCL 500 MG TABLET PO SCH ×2 (12:00→18:00)
[2016-12-18] MEDS ORDERED: METFORMIN HCL 500 MG TABLET PO ONE (12:30)
--- NOTE | 2016-12-18 14:44 | ER Document Report ---
ED Psych Disorder / Suicide - General Mode of Arrival: Ambulatory - POV Information source: Patient, [facility] Records TRAVEL OUTSIDE OF THE [place] IN LAST 30 DAYS: No - HPI Patient complains to provider of: Suicidal ideation - per patient, Self injury Onset: Just prior to arrival Onset was: Sudden Suicide Risk Factors: Hallucinations - per patient; however, presentation is incongruent with Psychosis Situational problems related to: Spouse - reports his left him Suicide Attempt Method: Stabbing/Cutting Normal mood: Yes - WNL for this patient Associated symptoms: Angry, Depressed, Labile, Uncooperative Similar symptoms previously: Yes - numerous prior presentations Recently seen / treated by doctor: Yes - just dc from this Department <JOHAN CALERO - Last Filed: 12/18/16 14:44> <MAGALI BLOOD - Last Filed: 12/21/16 10:11> - General Chief Complaint: Suicidal Ideation Stated Complaint: SUICIDIAL IDEATION Time Seen by Provider: 12/17/16 13:47 - HPI Notes: Patient is a 41 year old male who presented to the ED via POV due to reported SI and self injury. Patient was held overnight for further disposition and recommendations. Patient this morning was sleeping but easy to arouse. Patient states he is here because his voices are worse and they are telling him to hurt himself. Patient states he has heard voices for his whole life, every day. Patient is unable to identify what has made them worse. Patient states he is not on medications. Patient states does identify that his and child have left him and he does not know where they are. Patient further reports he is not currently under psychiatric care, and states he cannot get back and forth to his doctor in [place]. Patient was asked to clarify why he would choose to see someone in [place], if he [facility] not [facility]. Patient reports he is not permitted to see any providers in this area because they refused to see him. Patient clarifies that he had an altercation with Dr. Xavier at [facility]. Patient denies attempting to see any other providers who accept Medicaid. Patient was advised that there are actually numerous providers in and around the [facility] who accept Medicaid. Patient at this point becomes argumentative. Made patient aware that this clinician will check and see how her labs as well as which medications are being administered, as he was unable to verbalize prior medication history. During this time, patient did and started loudly yelling, "I need fu help" repeatedly. Patient then began banging his head against the wall, which appeared to reopen previous wounds. Note, patient was seen 12/16; 12/15; 12/14 and 12/11. Each time patient presented with self inflicted wounds and reports of AH. Patient's toxicology has additionally been positive for Cocaine. Patient noted yesterday upon arrival that he sold his truck to his dealer for drugs. Patient will be further evaluated by Dr. Blood for disposition. Patient is A&O. Mood is irritable with congruent affect. Patient denies suicidal/homicidal ideations. Patient endorses AH commanding him to harm himself. Patient denies visual hallucinations. Delusions not noted. Thought processes were goal oriented towards discharge, but otherwise organized and linear. Patient made good eye contact for the entirety of the conversation. Conversational speech was labile for prosody. Intellectual abilities were estimated within average range. Attention and focus were good. Insight, judgment , and impulse control were poor. Unspecified Bipolar Disorder, per history Unspecified Cocaine Use Disorder, per history Patient is psychiatrically cleared and recommended for rescind IVC. Patient has been seen multiple times in this department multiple days in a row for similar complaints and etiology. Patient has presented each time due to behavioral incidences suggesting he is attempting to meet his basic needs via misuse of the emergency medicine and psychiatric services. Patient has additionally been evaluated by Dr. Blood bedside who is in agreement the patient can be discharged for follow up at an outpatient facility. (JOHAN CALERO) Met with Patient to evaluate for discharge. Patient continued to endorse auditory hallucinations and suicidal ideation, however, he maintained good eye contact, linear, logical, and organized thinking. He was not responding to internal stimuli and continued to emphasize the voices he was hearing. He was advised he did not present as psychotic and he was being discharged with outpatient services. He became upset and advised he would go to [facility]. When asked what he wanted to achieve through [facility], he advised he wanted to be IVC'd. He was again told he did not meet criteria and asked what he would achieve by IVC. He stated "I want to , don't you get that? Where can I go to get IVC?" He was advised his requests were incongruent and being IVC meant he did not actively want to , rather he was continuing to abuse emergency services to meet his homeless and drug needs. He was advised he would be provided resources for substance abuse assistance but no medication would be provided and his behavior tolerated. Discharge is recommended and the ED Physician is in agreement with recommendation and disposition. (MAGALI BLOOD) - Related Data Allergies/Adverse Reactions: Penicillins Allergy (Severe, Verified 12/14/16 20:25) ketorolac tromethamine [From Toradol] Allergy (Verified 12/14/16 20:25) acetaminophen [From Tylenol] Adverse Reaction (Mild, Verified 12/14/16 20:25) Nausea codeine [Codeine] Adverse Reaction (Verified 12/14/16 20:25) Nausea tramadol [Tramadol] Adverse Reaction (Verified 12/14/16 20:25) Nausea tramadol HCl [From Ultram] Adverse Reaction (Verified 12/14/16 20:25) Nausea Past Medical History - General Information source: Patient, [facility] Records - Social History Smoking Status: Unknown if Ever Smoked Drug Abuse: Cocaine Family History: Reviewed & Not Pertinent, Hyperlipidemia Patient has suicidal ideation: No Patient has homicidal ideation: No - Past Medical History Cardiac Medical History: Reports: Hx Hypertension Pulmonary Medical History: Reports: Hx Asthma Denies: Hx Tuberculosis Endocrine Medical History: Reports: Hx Diabetes Mellitus Type 1, Hx Diabetes Mellitus Type 2 Renal/ Medical History: Reports: Hx Kidney Stones. Denies: Hx Peritoneal Dialysis GI Medical History: Reports: Hx Gastroesophageal Reflux Disease Musculoskeltal Medical History: Reports Hx Arthritis - chronic back pain Skin Medical History: Reports Hx MRSA Psychiatric Medical History: Reports: Hx Anxiety, Hx Attention Deficit Hyperactivity Disorder, Hx Bipolar Disorder, Hx Depression, Hx Schizophrenia Past Surgical History: Reports: Hx Cholecystectomy, Hx Orthopedic Surgery - r pinkie, L leg fx as child - Immunizations Hx Diphtheria, Pertussis, Tetanus Vaccination: Yes - 10/19/12 <JOHAN CALERO - Last Filed: 12/18/16 14:44> Course - Laboratory Result Diagrams: 12/17/16 14:15 12/17/16 14:15 <JOHAN CALERO - Last Filed: 12/18/16 14:44> - Laboratory Result Diagrams: 12/17/16 14:15 12/17/16 14:15 <MAGALI BLOOD - Last Filed: 12/21/16 10:11> - Vital Signs Vital signs: Temp Pulse Resp BP Pulse Ox 98.0 F 110 H 16 141/88 H 97 12/18/16 15:22 12/18/16 15:22 12/18/16 15:22 12/18/16 15:22 12/18/16 15:22 - Laboratory Laboratory results interpreted by me: 12/17/16 12/17/16 12/17/16 14:15 14:15 18:40 WBC 13.2 H RBC 5.60 H Seg Neutrophils % 86.1 H Lymphocytes % 10.1 L Absolute Neutrophils 11.3 H Glucose 359 H Total Bilirubin 2.1 H Urine Glucose (UA) >=500 H Salicylates < 1.0 L Acetaminophen < 10 L Discharge <JOHAN CALERO - Last Filed: 12/18/16 14:44> <MAGALI BLOOD - Last Filed: 12/21/16 10:11> - Discharge Clinical Impression: Self-injurious behavior, Substance abuse Depression Qualifiers: Depression Type: unspecified Qualified Code(s): F32.9 - Major depressive disorder, single episode, unspecified Condition: Stable Disposition: HOME, SELF-CARE Additional Instructions: Cocaine Abuse Cocaine causes many dangerous medical problems. Problems can occur even with "usual" amounts. Cocaine affects judgement, creating a sense of invulnerability. Cocaine users often make bad decisions that seem "great" at the time. Most cocaine users eventually will be hurt by bad job performance, damaged personal relations, crime, and unsafe sexual practices. Toxic effects of cocaine can include seizures, hallucinations, delusions, high blood pressure, heart damage, or sudden . There's always the risk of a "bad batch." But heart attacks, brain hemorrhages, or cardiac arrest can occur unpredictably even with "normal" use. Injection of cocaine is risky for abscesses, endocarditis (heart infection) , pneumonia, and AIDS. Withdrawal from cocaine often causes anxiety and drug cravings. Some users become paranoid and psychotic. Many treatment programs are available, but you must make the decision to quit. Medication can be prescribed to control the symptoms of cocaine toxicity (beta blockers or benzodiazepines). Withdrawal symptoms may require tranquilizers. Please follow up with your provider, whom you have identified as [facility]. Please discontinue illicit drug use. Please engage in outpatient services to assist you in medication management and outpatient therapy to assist in coping skills to manage your stressors. Referrals: [facility] [Provider Group] - Follow up as needed
[2016-12-18 17:17] VITALS: BP 141/88
== END 2016-12-18 15:23 | disposition home or self-care (01) ==
LOC: ER 13:33
PROC: 0HQDXZZ Repair Right Lower Arm Skin, External Approach (ICD-10-PCS; principal; 2016-12-17)
DX: S61.511A Laceration without foreign body of right wrist, initial encounter (principal); F32.9 Major depressive disorder, single episode, unspecified; X78.8XXA Intentional self-harm by other sharp object, initial encounter; R45.851 Suicidal ideations; R44.3 Hallucinations, unspecified; I10 Essential (primary) hypertension; E11.9 Type 2 diabetes mellitus without complications; Z72.89 Other problems related to lifestyle; Z23 Encounter for immunization; Z88.0 Allergy status to penicillin; Z88.6 Allergy status to analgesic agent; Z87.442 Personal history of urinary calculi; Z90.49 Acquired absence of other specified parts of digestive tract
CPT/HCPCS: 99285; 96372; 90471; 96374; 36415; 80307 ×4; 85025; 80053; 81001; 90715; 12002; J1200; J1630; J3490 ×2; J1815

== ENCOUNTER 2017-07-15 17:26 | Emergency (ER) | payer MEDICAID ==
[2017-07-15 18:21] VITALS: BP 127/69
--- NOTE | 2017-07-15 19:27 | ER Document Report ---
ED GI/ - General Chief Complaint: Abdominal Pain Stated Complaint: VOMITING, STOMACH PAIN Time Seen by Provider: 07/15/17 19:24 Mode of Arrival: Ambulatory Information source: Patient TRAVEL OUTSIDE OF THE [place] IN LAST 30 DAYS: No - HPI Patient complains to provider of: Abdominal pain, Vomiting Onset: Other - 2 DAYS Timing/Duration: Gradual Quality of pain: Cramping, Dull Severity at maximum: Severe Severity in ED: Moderate Context: denies: Bad food, Lifting, Out of the country travel, Recent trauma Location: Epigastric Associated symptoms: Chills, Diarrhea - ONCE, Dizzy. denies: Blood in emesis, Blood in stool Exacerbated by: Food Relieved by: Denies Similar symptoms previously: Yes - NOT RECENT Recently seen / treated by doctor: No - Related Data Allergies/Adverse Reactions: Penicillins Allergy (Severe, Verified 12/14/16 20:25) ketorolac tromethamine [From Toradol] Allergy (Verified 12/14/16 20:25) acetaminophen [From Tylenol] Adverse Reaction (Mild, Verified 12/14/16 20:25) Nausea codeine [Codeine] Adverse Reaction (Verified 12/14/16 20:25) Nausea tramadol [Tramadol] Adverse Reaction (Verified 12/14/16 20:25) Nausea tramadol HCl [From Ultram] Adverse Reaction (Verified 12/14/16 20:25) Nausea Past Medical History - General Information source: Patient - Social History Smoking Status: Unknown if Ever Smoked Frequency of alcohol use: Occasional Drug Abuse: None Lives with: Family Family History: Reviewed & Not Pertinent, Hyperlipidemia - Past Medical History Cardiac Medical History: Reports: Hx Hypertension Pulmonary Medical History: Reports: Hx Asthma Denies: Hx Tuberculosis EENT Medical History: Reports: None Neurological Medical History: Reports: None Endocrine Medical History: Reports: Hx Diabetes Mellitus Type 2 Renal/ Medical History: Reports: Hx Kidney Stones. Denies: Hx Peritoneal Dialysis Malignancy Medical History: Reports None GI Medical History: Reports: Hx Gastroesophageal Reflux Disease Musculoskeltal Medical History: Reports Hx Arthritis - chronic back pain Skin Medical History: Reports Hx MRSA Psychiatric Medical History: Reports: Hx Anxiety, Hx Attention Deficit Hyperactivity Disorder, Hx Bipolar Disorder, Hx Depression, Hx Schizophrenia Past Surgical History: Reports: Hx Cholecystectomy, Hx Orthopedic Surgery - r pinkie, L leg fx as child - Immunizations Hx Diphtheria, Pertussis, Tetanus Vaccination: Yes - 4/6/13 Review of Systems - Review of Systems Constitutional: Chills, Weakness. denies: Fever EENT: No symptoms reported Cardiovascular: No symptoms reported Respiratory: No symptoms reported Gastrointestinal: See HPI Genitourinary: No symptoms reported Musculoskeletal: No symptoms reported Skin: No symptoms reported Neurological/Psychological: No symptoms reported Physical Exam - Vital signs Vitals: Temp Pulse Resp BP Pulse Ox 98.9 F 64 18 127/69 H 99 07/15/17 18:19 07/15/17 18:19 07/15/17 18:19 07/15/17 18:19 07/15/17 18:19 Interpretation: Normal. No: Bradycardic, Tachycardic, Tachypneic, Febrile - General General appearance: Appears well, Alert In distress: None - HEENT Head: Normocephalic Eyes: Normal. No: Pale conjunctiva Conjunctiva: Normal. No: Icteric Ears: Normal Nasal: Normal Mouth/Lips: Normal Mucous membranes: Dry - MILDLY Pharynx: Normal Neck: Normal - Respiratory Respiratory status: No respiratory distress Breath sounds: Normal - Cardiovascular Rhythm: Regular Heart sounds: Normal auscultation Murmur: No - Abdominal Inspection: Normal Distension: No distension Bowel sounds: Hypoactive Tenderness: Tender - MILD, DIFFUSE - Back Back: Normal - Extremities General upper extremity: Normal inspection General lower extremity: Normal inspection - Neurological Neuro grossly intact: Yes Cognition: Normal Orientation: AAOx4 - Psychological Associated symptoms: Normal affect, Normal mood - Skin Skin Temperature: Warm Skin Moisture: Dry Skin Color: Normal Skin Turgor: Elastic Course - Vital Signs Vital signs: Temp Pulse Resp BP Pulse Ox 98.9 F 64 18 127/69 H 99 07/15/17 18:19 07/15/17 18:19 07/15/17 18:19 07/15/17 18:19 07/15/17 18:19 - Laboratory Result Diagrams: 07/15/17 20:10 07/15/17 20:10 Laboratory results interpreted by me: 07/15/17 07/15/17 20:10 20:10 RBC 5.73 H Glucose 122 H Total Bilirubin 2.2 H Discharge - Discharge Clinical Impression: Dehydration Vomiting Qualifiers: Vomiting type: bilious vomiting Nausea presence: with nausea Qualified Code(s) : R11.14 - Bilious vomiting Abdominal pain Qualifiers: Abdominal location: generalized Qualified Code(s): R10.84 - Generalized abdominal pain Disposition: AGAINST MEDICAL ADVICE
[2017-07-15] MEDS ORDERED: NORMAL SALINE 1000 ML 2,000 ML IV ONE (19:36)
[2017-07-15] MEDS ORDERED: ONDANSETRON HCL INJ/PF 4 MG/2 ML SDV IV ONE (19:36)
[2017-07-15] MEDS ORDERED: HALOPERIDOL LACTATE INJ 5 MG/1 ML VIAL IV ONE (20:25)
[2017-07-15] MEDS ORDERED: DIPHENHYDRAMINE HCL 50 MG/ML VIAL IV ONE (20:25)
[2017-07-15 20:32] LABS: ABSOLUTE BASOPHILS # (AUTO) 0.1 10^3/uL (0.0-0.2); ABSOLUTE EOSINOPHILS # (AUTO) 0.1 10^3/uL (0.0-0.6); ABSOLUTE LYMPHOCYTES (AUTO) 3.4 10^3/uL (0.5-4.7); ABSOLUTE MONOCYTES (AUTO) 0.6 10^3/uL (0.1-1.4); BASOPHILS % (AUTO) 0.7 % (0-2); EOSINOPHILS % (AUTO) 1.2 % (0-6); HEMATOCRIT 48.2 % (37.9-51.0); HEMOGLOBIN 16.9 g/dL (13.5-17.0); LYMPHOCYTES % (AUTO) 33.5 % (13-45); MEAN CORPUSCULAR HEMOGLOBIN 29.4 pg (27.0-33.4); MEAN CORPUSCULAR VOLUME 84 fl (80-97); MONOCYTES % (AUTO) 5.7 % (3-13); PLATELET COUNT 228 10^3/uL (150-450); RED BLOOD COUNT 5.73 10^6/uL (4.35-5.55); RED CELL DISTRIBUTION WIDTH 13.5 % (11.5-14.0); SEGMENTED NEUTROPHILS % (AUTO) 58.9 % (42-78); TOTAL CELLS COUNTED % (AUTO) 100 %; WHITE BLOOD COUNT 10.2 10^3/uL (4.0-10.5)
[2017-07-15 20:43] LABS: ALANINE AMINOTRANSFERASE 32 U/L (21-72); ALBUMIN 4.2 g/dL (3.5-5.0); ALKALINE PHOSPHATASE 44 U/L (38-126); ANION GAP 10 (5-19); ASPARTATE AMINO TRANSFERASE 23 U/L (17-59); BILIRUBIN,DIRECT 0.2 mg/dL (0.0-0.4); BILIRUBIN,TOTAL 2.2 mg/dL (0.2-1.3); BLOOD UREA NITROGEN 8 mg/dL (7-20); CALCIUM 9.7 mg/dL (8.4-10.2); CARBON DIOXIDE 29 mmol/L (22-30); CHLORIDE 100 mmol/L (98-107); GLUCOSE 122 mg/dL (75-110); LIPASE 58.7 U/L (23-300); POTASSIUM 3.8 mmol/L (3.6-5.0); SODIUM 138.6 mmol/L (137-145); TOTAL PROTEIN 6.6 g/dL (6.3-8.2)
== END 2017-07-15 21:09 | disposition left against medical advice (07) ==
LOC: ER 17:26
DX: E86.0 Dehydration (principal); R10.84 Generalized abdominal pain; R11.14 Bilious vomiting
CPT/HCPCS: 99284; 96361; 96374; 96375; 36415; 83690; 85025; 80053; J1200; J1630; J2405; J7030

== ENCOUNTER 2017-10-26 13:59 | Emergency (ER) | payer MEDICAID ==
--- NOTE | 2017-10-26 14:42 | ER Document Report ---
ED Medical Screen (RME) - General Chief Complaint: Foot Pain Stated Complaint: FOOT INJURY Time Seen by Provider: 10/26/17 14:35 Notes: 41-year-old noncompliant insulin-dependent diabetic no meds in quite some time. 3 day history of pain and swelling to his left foot. He thinks he may have stepped on something, there is a small puncture on the plantar surface over the distal fourth or fifth metatarsal region. It is locally swollen at that point with some erythema and tender. It is much more tender on the dorsal foot laterally over the fourth and fifth metatarsals and lateral to the fifth metatarsal. I have greeted and performed a rapid initial assessment of this patient. A comprehensive ED assessment and evaluation of the patient, analysis of test results and completion of the medical decision making process will be conducted by additional ED providers. TRAVEL OUTSIDE OF THE [place] IN LAST 30 DAYS: No - Related Data Allergies/Adverse Reactions: Penicillins Allergy (Severe, Verified 12/14/16 20:25) ketorolac tromethamine [From Toradol] Allergy (Verified 12/14/16 20:25) acetaminophen [From Tylenol] Adverse Reaction (Mild, Verified 12/14/16 20:25) Nausea codeine [Codeine] Adverse Reaction (Verified 12/14/16 20:25) Nausea tramadol [Tramadol] Adverse Reaction (Verified 12/14/16 20:25) Nausea tramadol HCl [From Ultram] Adverse Reaction (Verified 12/14/16 20:25) Nausea Past Medical History - Social History Family history: Reviewed & Not Pertinent - Past Medical History Cardiac Medical History: Reports: Hx Hypertension Pulmonary Medical History: Reports: Hx Asthma Denies: Hx Tuberculosis Endocrine Medical History: Reports: Hx Diabetes Mellitus Type 1, Hx Diabetes Mellitus Type 2 Renal/ Medical History: Reports: Hx Kidney Stones. Denies: Hx Peritoneal Dialysis GI Medical History: Reports: Hx Gastroesophageal Reflux Disease Musculoskeltal Medical History: Reports Hx Arthritis - chronic back pain Skin Medical History: Reports Hx MRSA Psychiatric Medical History: Reports: Hx Anxiety, Hx Attention Deficit Hyperactivity Disorder, Hx Bipolar Disorder, Hx Depression, Hx Schizophrenia Past Surgical History: Reports: Hx Cholecystectomy, Hx Orthopedic Surgery - r pinkie, L leg fx as child - Immunizations Hx Diphtheria, Pertussis, Tetanus Vaccination: Yes - 10/19/12 Physical Exam - Vital signs Vitals: Temp Pulse Resp BP Pulse Ox 98.4 F 78 16 106/76 98 10/26/17 14:26 10/26/17 14:26 10/26/17 14:26 10/26/17 14:26 10/26/17 14:26 Course - Vital Signs Vital signs: Temp Pulse Resp BP Pulse Ox 98.4 F 78 16 106/76 98 10/26/17 14:26 10/26/17 14:26 10/26/17 14:26 10/26/17 14:26 10/26/17 14:26
[2017-10-26 15:13] LABS: ABSOLUTE BASOPHILS # (AUTO) 0.1 10^3/uL (0.0-0.2); ABSOLUTE EOSINOPHILS # (AUTO) 0.1 10^3/uL (0.0-0.6); ABSOLUTE LYMPHOCYTES (AUTO) 2.4 10^3/uL (0.5-4.7); ABSOLUTE MONOCYTES (AUTO) 0.8 10^3/uL (0.1-1.4); ABSOLUTE NEUT (AUTO) 8.6 10^3/uL (1.7-8.2); BASOPHILS % (AUTO) 0.8 % (0-2); EOSINOPHILS % (AUTO) 0.9 % (0-6); HEMATOCRIT 47.8 % (37.9-51.0); HEMOGLOBIN 16.8 g/dL (13.5-17.0); MEAN CORPUSCULAR HEMOGLOBIN 29.5 pg (27.0-33.4); MEAN CORPUSCULAR HGB CONC 35.2 g/dL (32.0-36.0); MEAN CORPUSCULAR VOLUME 84 fl (80-97); MONOCYTES % (AUTO) 6.3 % (3-13); PLATELET COUNT 211 10^3/uL (150-450); RED BLOOD COUNT 5.71 10^6/uL (4.35-5.55); RED CELL DISTRIBUTION WIDTH 13.1 % (11.5-14.0); TOTAL CELLS COUNTED % (AUTO) 100 %; WHITE BLOOD COUNT 11.9 10^3/uL (4.0-10.5)
--- NOTE | 2017-10-26 15:23 | ER Document Report ---
ED Extremity Problem, Lower - General Chief Complaint: Foot Pain Stated Complaint: FOOT INJURY Time Seen by Provider: 10/26/17 14:35 Notes: The patient is a 41-year-old male, past medical history IDDM, mild peripheral neuropathy, presents with 3 days of left foot pain and swelling that started after he may have stepped on an unknown object that punctured his boot. Patient denies fevers, calf swelling, increased numbness or tingling. TRAVEL OUTSIDE OF THE [place] IN LAST 30 DAYS: No - Related Data Allergies/Adverse Reactions: Penicillins Allergy (Severe, Verified 10/26/17 14:42) ketorolac tromethamine [From Toradol] Allergy (Verified 10/26/17 14:42) acetaminophen [From Tylenol] Adverse Reaction (Mild, Verified 10/26/17 14:42) Nausea codeine [Codeine] Adverse Reaction (Verified 10/26/17 14:42) Nausea tramadol [Tramadol] Adverse Reaction (Verified 10/26/17 14:42) Nausea tramadol HCl [From Ultram] Adverse Reaction (Verified 10/26/17 14:42) Nausea Past Medical History - General Information source: Patient - Social History Smoking Status: Never Smoker Chew tobacco use (# tins/day): Yes Frequency of alcohol use: None Drug Abuse: None Family History: Reviewed & Not Pertinent, Hyperlipidemia Patient has suicidal ideation: No Patient has homicidal ideation: No - Past Medical History Cardiac Medical History: Reports: Hx Hypertension Pulmonary Medical History: Reports: Hx Asthma Denies: Hx Tuberculosis Endocrine Medical History: Reports: Hx Diabetes Mellitus Type 1, Hx Diabetes Mellitus Type 2 Renal/ Medical History: Reports: Hx Kidney Stones. Denies: Hx Peritoneal Dialysis GI Medical History: Reports: Hx Gastroesophageal Reflux Disease Musculoskeltal Medical History: Reports Hx Arthritis - chronic back pain Skin Medical History: Reports Hx MRSA Psychiatric Medical History: Reports: Hx Anxiety, Hx Attention Deficit Hyperactivity Disorder, Hx Bipolar Disorder, Hx Depression, Hx Schizophrenia Past Surgical History: Reports: Hx Cholecystectomy, Hx Orthopedic Surgery - r pinkie, L leg fx as child - Immunizations Hx Diphtheria, Pertussis, Tetanus Vaccination: Yes - 10/19/12 Review of Systems - Review of Systems Notes: REVIEW OF SYSTEMS: CONSTITUTIONAL: -fevers, -chills EENT: -eye pain, -difficulty swallowing, -nasal congestion CARDIOVASCULAR: -chest pain, -syncope. RESPIRATORY: -cough, -SOB GASTROINTESTINAL: -abdominal pain, -nausea, -vomiting, -diarrhea GENITOURINARY: -dysuria, -hematuria MUSCULOSKELETAL: -back pain, -neck pain SKIN: +redness of left foot HEMATOLOGIC: -easy bruising or bleeding. LYMPHATIC: -swollen, enlarged glands. NEUROLOGICAL: -altered mental status or loss of consciousness, -headache, - neurologic symptoms PSYCHIATRIC: -anxiety, -depression. ALL OTHER SYSTEMS REVIEWED AND NEGATIVE. Physical Exam - Vital signs Vitals: Temp Pulse Resp BP Pulse Ox 98.4 F 78 16 106/76 98 10/26/17 14:26 10/26/17 14:26 10/26/17 14:26 10/26/17 14:10/26/17 14:26 - Notes Notes: PHYSICAL EXAMINATION: GENERAL: Well-appearing, well-nourished and in no acute distress. HEAD: Atraumatic, normocephalic. EYES: Pupils equal round and reactive to light, extraocular movements intact, sclera anicteric, conjunctiva are normal. ENT: nares patent, oropharynx clear without exudates. Moist mucous membranes. NECK: Normal range of motion, supple without lymphadenopathy LUNGS: Breath sounds clear to auscultation bilaterally and equal. No wheezes rales or rhonchi. HEART: Regular rate and rhythm without murmurs ABDOMEN: Soft, nontender, normoactive bowel sounds. No guarding, no rebound. No masses appreciated. EXTREMITIES: Erythema of dorsal surface of left foot between 2nd and 3rd toes. Small amount of swelling of dorsal foot up to midfoot. Normal range of motion. No pucture wounds. Non-tender over calcaneous. No cyanosis. NEUROLOGICAL: Cranial nerves grossly intact. Normal speech. Normal sensory and motor exams. PSYCH: Normal mood, normal affect. Course - Re-evaluation Re-evalutation: Patient appears well. He has a small amount of cellulitis between his second and third left toes. His diabetes is well-controlled with a normal A1C. No puncture wounds or discrete area of injury. He appears well enough for outpatient treatment of his cellulitis. Due to the possibility of a puncture through shoes, [facility] provided for pseudomonal coverage and patient told to return to the ER if he has any worsening redness or fevers. The site of his cellulitis was demarcated with a marker and he understands the return precautions. X-ray does not show any foreign objects, but does show in ill- defined lesion in his left calcaneus. He has no tenderness or pain around this area. Provided him a copy of his x-ray report and told him to follow-up with his primary care physician or last sawyer for further evaluation of this lesion, including a possible MRI, for concern about a possible bone cancer. - Vital Signs Vital signs: Temp Pulse Resp BP Pulse Ox 98.4 F 78 16 106/76 98 10/26/17 14:26 10/26/17 14:26 10/26/17 14:26 10/26/17 14:26 10/26/17 14:26 - Laboratory Result Diagrams: 10/26/17 14:55 10/26/17 14:55 Laboratory results interpreted by me: 10/26/17 10/26/17 10/26/17 14:55 14:55 14:55 WBC 11.9 H RBC 5.71 H Absolute Neutrophils 8.6 H Glucose 147 H Hemoglobin A1c % 6.5 H Total Bilirubin 2.6 H AST 14 L - Diagnostic Test Radiology reviewed: Image reviewed, Reports reviewed Radiology results interpreted by me: Left foot x-ray: Ill-defined lucency involving the inferior calcaneus in the lateral projection as noted above of uncertain etiology. Clinical correlation is recommended. If further workup is deemed clinically warranted I would recommend MRI. Other findings as noted above. Discharge - Discharge Clinical Impression: Cellulitis of foot, left Condition: Stable Disposition: HOME, SELF-CARE Additional Instructions: Take the full course of antibiotics as prescribed. Return to the ER if you notice worsening redness, fevers or any other concerns. You must follow-up with the foot doctor for a recheck of your symptoms and further workup of this possible left heel lesion. CELLULITIS: You have an infection of your skin and underlying soft tissues called cellulitis. This is due to bacteria, which can enter through any break in the skin, or even through an irritated hair follicle. Untreated, cellulitis will usually worsen. Antibiotics are required. Usually, warm packs or warm soaks, and elevation of the infected area are recommended. You should start getting better within 24 to 36 hours. Most infections respond quickly to the right medication. Follow-up care is important, however, to check for abscess (boil) formation, unsuspected foreign body, or resistant infection. If you develop fever, chills, or if the area of infection is becoming rapidly more swollen or painful, call the doctor at once. ANTIBIOTIC THERAPY: You have been given an antibiotic prescription. It's important that you take all the medication, unless instructed otherwise by your physician. Failure to complete the entire course can result in relapse of your condition. Common side effects of antibiotics include nausea, intestinal cramping, or diarrhea. Women may develop vaginal yeast infections, and babies can get yeast (thrush) in the mouth following the use of antibiotics. Contact your physician if you develop significant side effects from this medication. Allergy to this antibiotic can result in hives, wheezing, faintness, or itching. If symptoms of allergy occur, stop the medication and call the doctor. FOLLOW-UP CARE: If you have been referred to a physician for follow-up care, call the physician s office for an appointment as you were instructed or within the next two days. If you experience worsening or a significant change in your symptoms, notify the physician immediately or return to the Emergency Department at any time for re-evaluation. Prescriptions: Ciprofloxacin HCl [Cipro 500 mg Tablet] 500 mg PO BID #20 tablet Naproxen [Naprosyn 250 mg Tablet] 500 mg PO Q12H PRN #14 tablet PRN Reason: Referrals: ROXANN FULLER DPM [ACTIVE STAFF] - Follow up as needed
[2017-10-26 15:36] LABS: ALANINE AMINOTRANSFERASE 23 U/L (21-72); ALBUMIN 4.1 g/dL (3.5-5.0); ALKALINE PHOSPHATASE 53 U/L (38-126); ANION GAP 12 (5-19); ASPARTATE AMINO TRANSFERASE 14 U/L (17-59); BILIRUBIN,DIRECT 0.3 mg/dL (0.0-0.4); BILIRUBIN,TOTAL 2.6 mg/dL (0.2-1.3); BLOOD UREA NITROGEN 8 mg/dL (7-20); CALCIUM 9.5 mg/dL (8.4-10.2); CARBON DIOXIDE 28 mmol/L (22-30); CHLORIDE 102 mmol/L (98-107); GLUCOSE 147 mg/dL (75-110); POTASSIUM 4.1 mmol/L (3.6-5.0); SODIUM 141.6 mmol/L (137-145); TOTAL PROTEIN 6.8 g/dL (6.3-8.2)
[2017-10-26] MEDS ORDERED: CIPROFLOXACIN HCL 500 MG TABLET PO ONE (15:37)
[2017-10-26] MEDS ORDERED: NAPROXEN 250 MG TABLET PO ONE (15:37)
--- NOTE | 2017-10-26 15:49 | RADIOLOGY REPORT (SQ) ---
EXAM DESCRIPTION: FOOT LEFT COMPLETE COMPLETED DATE/TIME: 10/26/2017 3:15 pm REASON FOR STUDY: pain, swelling, plantar puncture COMPARISON: None. NUMBER OF VIEWS: Three views. TECHNIQUE: AP, lateral and oblique radiographic images acquired of the left foot. LIMITATIONS: None. FINDINGS: MINERALIZATION: Normal. BONES: No acute fracture or dislocation. There is an area of ill-defined lucency involving the infer ior calcaneus in the lateral projection of uncertain etiology. Clinical correlation is recommended. If further workup is deemed clinically warranted I would recommend MRI. JOINTS: Calcific density is identified at the level of the MTP joint of the 4th digit which may be re lated to previous trauma. SOFT TISSUES: No soft tissue swelling. No foreign body. OTHER: No other significant finding. IMPRESSION: Ill-defined lucency involving the inferior calcaneus in the lateral projection as noted above of uncertain etiology. Clinical correlation is recommended. If further workup is deemed clini kathie warranted I would recommend MRI. Other findings as noted above TECHNICAL DOCUMENTATION: JOB ID: [id number] Pager- All Rights Reserved Reading location - IP/workstation name: [email or web address]
[2017-10-26 17:24] VITALS: BP 121/81
== END 2017-10-26 17:24 | disposition home or self-care (01) ==
LOC: ER 13:59
DX: L03.116 Cellulitis of left lower limb (principal); M79.672 Pain in left foot; M79.89 Other specified soft tissue disorders; E11.40 Type 2 diabetes mellitus with diabetic neuropathy, unspecified; Z79.4 Long term (current) use of insulin; X58.XXXA Exposure to other specified factors, initial encounter; I10 Essential (primary) hypertension; J45.909 Unspecified asthma, uncomplicated
CPT/HCPCS: 99284; 36415; 85025; 80053; 83036; 73630; J3490 ×2

== ENCOUNTER 2017-10-28 13:03 | Inpatient (IN) | payer MEDICAID ==
[2017-10-28] MEDS ORDERED: OXYCODONE-ACETAMINOPHEN 5-325 MG TABLET PO ONE (13:39)
--- NOTE | 2017-10-28 13:40 | ER Document Report ---
ED Medical Screen (RME) - General Chief Complaint: Foot Pain Stated Complaint: FOOT PAIN Time Seen by Provider: 10/28/17 13:33 Notes: This 41-year-old male diabetic comes emergency room for worsening pain and swelling to his left foot. He was seen here 2 days ago with pain and swelling to the dorsal and plantar distal foot. The toes were not involved. He did have what appeared to be a puncture wound to the plantar surface of the distal fourth metatarsal which was the area of the most pain and swelling on exam at that time. It still remains the most tender swollen area, but now the erythema has progressed up the foot proximally along with the pain. I have greeted and performed a rapid initial assessment of this patient. A comprehensive ED assessment and evaluation of the patient, analysis of test results and completion of the medical decision making process will be conducted by additional ED providers. TRAVEL OUTSIDE OF THE [place] IN LAST 30 DAYS: No COUNTRY TRAVELED TO/FROM: [facility] - Related Data Allergies/Adverse Reactions: Penicillins Allergy (Severe, Verified 10/26/17 14:42) ketorolac tromethamine [From Toradol] Allergy (Verified 10/26/17 14:42) acetaminophen [From Tylenol] Adverse Reaction (Mild, Verified 10/26/17 14:42) Nausea codeine [Codeine] Adverse Reaction (Verified 10/26/17 14:42) Nausea tramadol [Tramadol] Adverse Reaction (Verified 10/26/17 14:42) Nausea tramadol HCl [From Ultram] Adverse Reaction (Verified 10/26/17 14:42) Nausea Past Medical History - Social History Chew tobacco use (# tins/day): Yes - 1 Frequency of alcohol use: Occasional Drug Abuse: None Family history: Reviewed & Not Pertinent - Past Medical History Cardiac Medical History: Reports: Hx Hypertension Pulmonary Medical History: Reports: Hx Asthma Denies: Hx Tuberculosis Endocrine Medical History: Reports: Hx Diabetes Mellitus Type 1, Hx Diabetes Mellitus Type 2 Renal/ Medical History: Reports: Hx Kidney Stones. Denies: Hx Peritoneal Dialysis GI Medical History: Reports: Hx Gastroesophageal Reflux Disease Musculoskeltal Medical History: Reports Hx Arthritis - chronic back pain Skin Medical History: Reports Hx MRSA Psychiatric Medical History: Reports: Hx Anxiety, Hx Attention Deficit Hyperactivity Disorder, Hx Bipolar Disorder, Hx Depression, Hx Schizophrenia Past Surgical History: Reports: Hx Cholecystectomy, Hx Orthopedic Surgery - r pinksneha, L leg fx as child - Immunizations Hx Diphtheria, Pertussis, Tetanus Vaccination: Yes - 10/19/12 Physical Exam - Vital signs Vitals: Temp Pulse BP Pulse Ox 98.4 F 79 109/67 97 10/28/17 13:19 10/28/17 13:19 10/28/17 13:19 10/28/17 13:19 Course - Vital Signs Vital signs: Temp Pulse Resp BP Pulse Ox 98.4 F 79 109/67 97 10/28/17 13:19 10/28/17 13:19 10/28/17 13:19 10/28/17 13:19
[2017-10-28 13:58] LABS: ABSOLUTE BASOPHILS # (AUTO) 0.1 10^3/uL (0.0-0.2); ABSOLUTE EOSINOPHILS # (AUTO) 0.2 10^3/uL (0.0-0.6); ABSOLUTE LYMPHOCYTES (AUTO) 1.8 10^3/uL (0.5-4.7); ABSOLUTE MONOCYTES (AUTO) 0.4 10^3/uL (0.1-1.4); ABSOLUTE NEUT (AUTO) 5.6 10^3/uL (1.7-8.2); BASOPHILS % (AUTO) 1.4 % (0-2); HEMATOCRIT 43.6 % (37.9-51.0); HEMOGLOBIN 15.4 g/dL (13.5-17.0); LYMPHOCYTES % (AUTO) 22.6 % (13-45); MEAN CORPUSCULAR HEMOGLOBIN 29.5 pg (27.0-33.4); MEAN CORPUSCULAR HGB CONC 35.3 g/dL (32.0-36.0); MEAN CORPUSCULAR VOLUME 84 fl (80-97); MONOCYTES % (AUTO) 4.6 % (3-13); PLATELET COUNT 208 10^3/uL (150-450); RED BLOOD COUNT 5.22 10^6/uL (4.35-5.55); RED CELL DISTRIBUTION WIDTH 12.9 % (11.5-14.0); SEGMENTED NEUTROPHILS % (AUTO) 69.4 % (42-78); TOTAL CELLS COUNTED % (AUTO) 100 %; WHITE BLOOD COUNT 8.1 10^3/uL (4.0-10.5)
[2017-10-28 14:14] LABS: ALANINE AMINOTRANSFERASE 20 U/L (21-72); ALBUMIN 3.9 g/dL (3.5-5.0); ALKALINE PHOSPHATASE 44 U/L (38-126); ANION GAP 12 (5-19); ASPARTATE AMINO TRANSFERASE 16 U/L (17-59); BILIRUBIN,TOTAL 1.4 mg/dL (0.2-1.3); BLOOD UREA NITROGEN 14 mg/dL (7-20); CALCIUM 9.3 mg/dL (8.4-10.2); CARBON DIOXIDE 28 mmol/L (22-30); CHLORIDE 105 mmol/L (98-107); GLUCOSE 171 mg/dL (75-110); POTASSIUM 4.3 mmol/L (3.6-5.0); SODIUM 144.6 mmol/L (137-145); TOTAL PROTEIN 6.3 g/dL (6.3-8.2)
[2017-10-28] MEDS ORDERED: METRONIDAZOLE 500 MG/NS RTU 100 ML IV ONE (14:26)
[2017-10-28] MEDS ORDERED: VANCOMYCIN HCL INJ 1000 MG VIAL IV ONE (14:26)
[2017-10-28] MEDS ORDERED: CIPROFLOXACIN 400 MG/D5W RTU 400 MG/200 ML RTUPB IV ONE (14:26)
[2017-10-28] MEDS ORDERED: TETANUS/DIPHTHERIA TOX-ADULT 0.5 ML SYR (>=7YO) IM ONE (14:35)
--- NOTE | 2017-10-28 14:38 | ER Document Report ---
ED Extremity Problem, Lower - General Chief Complaint: Foot Pain Stated Complaint: FOOT PAIN Time Seen by Provider: 10/28/17 13:33 Mode of Arrival: Ambulatory Information source: Patient TRAVEL OUTSIDE OF THE [place] IN LAST 30 DAYS: No COUNTRY TRAVELED TO/FROM: [facility] Patient complains to provider of: Injury, Pain, Swelling Location: Foot Occurred: Other - 3 days Where: Outdoors Onset/Duration: Gradual, Persistent, Worse Quality of pain: Achy, Pressure Severity: Moderate Pain Level: 4 Recent injury: Yes Associated symptoms: Painful ambulation Exacerbated by: Movement Relieved by: Nothing Notes: Patient is a 41-year-old male with history of diabetes who presents to the emergency room today complaining of painful swelling to his left foot that has been worsening over the past 3 days, states he was walking outside with shoes on 3 nights ago when he stepped on something sharp causing a puncture to the plantar surface of his foot, he was seen in this emergency department the following day and started on antibiotics for cellulitis with mild erythema and swelling between the third and fourth toes, over the course of the last 2 days his swelling and pain is gotten significantly worse prompting him to return to the emergency room today, he denies any new injury, denies any fever, his last tetanus shot was in 2012, he reports that he has been compliant with taking his antibiotics at home - Related Data Allergies/Adverse Reactions: Penicillins Allergy (Severe, Verified 10/26/17 14:42) ketorolac tromethamine [From Toradol] Allergy (Verified 10/26/17 14:42) acetaminophen [From Tylenol] Adverse Reaction (Mild, Verified 10/26/17 14:42) Nausea codeine [Codeine] Adverse Reaction (Verified 10/26/17 14:42) Nausea tramadol [Tramadol] Adverse Reaction (Verified 10/26/17 14:42) Nausea tramadol HCl [From Ultram] Adverse Reaction (Verified 10/26/17 14:42) Nausea Home Medications: Cipro, Naproxen Past Medical History - General Information source: Patient - Social History Smoking Status: Never Smoker Chew tobacco use (# tins/day): Yes - 1 Frequency of alcohol use: Occasional Drug Abuse: None Family History: Reviewed & Not Pertinent, Hyperlipidemia Patient has suicidal ideation: No Patient has homicidal ideation: No - Past Medical History Cardiac Medical History: Reports: Hx Hypertension Pulmonary Medical History: Reports: Hx Asthma Denies: Hx Tuberculosis Endocrine Medical History: Reports: Hx Diabetes Mellitus Type 1, Hx Diabetes Mellitus Type 2 Renal/ Medical History: Reports: Hx Kidney Stones. Denies: Hx Peritoneal Dialysis GI Medical History: Reports: Hx Gastroesophageal Reflux Disease Musculoskeltal Medical History: Reports Hx Arthritis - chronic back pain Skin Medical History: Reports Hx MRSA Psychiatric Medical History: Reports: Hx Anxiety, Hx Attention Deficit Hyperactivity Disorder, Hx Bipolar Disorder, Hx Depression, Hx Schizophrenia Past Surgical History: Reports: Hx Cholecystectomy, Hx Orthopedic Surgery - r pinkie, L leg fx as child - Immunizations Hx Diphtheria, Pertussis, Tetanus Vaccination: Yes - 10/19/12 Review of Systems - Review of Systems Constitutional: No symptoms reported EENT: No symptoms reported Cardiovascular: No symptoms reported Respiratory: No symptoms reported Gastrointestinal: No symptoms reported Genitourinary: No symptoms reported Male Genitourinary: No symptoms reported Musculoskeletal: See HPI Skin: See HPI Hematologic/Lymphatic: No symptoms reported Neurological/Psychological: No symptoms reported Physical Exam - Vital signs Vitals: Temp Pulse BP Pulse Ox 98.4 F 79 109/67 97 10/28/17 13:19 10/28/17 13:19 10/28/17 13:19 10/28/17 13:19 Interpretation: Normal - General General appearance: Appears well, Alert - HEENT Head: Normocephalic, Atraumatic Eyes: Normal Pupils: PERRL - Respiratory Respiratory status: No respiratory distress Chest status: Nontender Breath sounds: Normal Chest palpation: Normal - Cardiovascular Rhythm: Regular Heart sounds: Normal auscultation Murmur: No - Abdominal Inspection: Normal Distension: No distension Bowel sounds: Normal Tenderness: Nontender Organomegaly: No organomegaly - Back Back: Normal, Nontender - Extremities General upper extremity: Normal inspection, Nontender, Normal color, Normal ROM , Normal temperature General lower extremity: No: Laci's sign Foot: Tender, Other - Erythema with swelling and tenderness to the dorsal surface of the foot, with swelling up to the ankle, decreased sensation distally , 2+ DP pulses, small area on the plantar surface over the first metatarsal distally which patient reports is having a small puncture wound - Neurological Neuro grossly intact: Yes Cognition: Normal Orientation: AAOx4 [place] Coma Scale Eye Opening: Spontaneous [place] Coma Scale Verbal: Oriented Jose Coma Scale Motor: Obeys Commands Jose Coma Scale Total: 15 Speech: Normal Motor strength normal: LUE, RUE, LLE, RLE Sensory: Normal - Psychological Associated symptoms: Normal affect, Normal mood - Skin Skin Temperature: Warm Skin Moisture: Dry Skin Color: Normal Course - Re-evaluation Re-evalutation: 10/28/17 14:42 Patient discussed with hospitalist team, DEMAND EQUIPMENT REPAIRER Marlen Kee who accepts patient for admission - Vital Signs Vital signs: Temp Pulse Resp BP Pulse Ox 98.4 F 79 109/67 97 10/28/17 13:19 10/28/17 13:19 10/28/17 13:19 10/28/17 13:19 - Laboratory Result Diagrams: 10/28/17 13:49 10/28/17 13:49 Laboratory results interpreted by me: 10/28/17 13:49 Glucose 171 H Total Bilirubin 1.4 H AST 16 L ALT 20 L Discharge - Discharge Clinical Impression: Cellulitis of foot, left Condition: Stable Disposition: ADMITTED INPATIENT Admitting Provider: Hospitalist Unit Admitted: Medical Floor
[2017-10-28] MEDS ORDERED: ACETAMINOPHEN 325 MG TABLET PO PRN (15:19)
[2017-10-28] MEDS ORDERED: MAGNESIUM HYDROXIDE SUSP 30 ML UDCUP PO PRN (15:27)
[2017-10-28] MEDS ORDERED: MAG HYDROX/AL HYDROX/SIMETH SUSP 30 ML UDCUP PO PRN (15:27)
[2017-10-28] MEDS ORDERED: PROMETHAZINE HCL 25 MG SUPP.RECT PR PRN (15:27)
[2017-10-28] MEDS ORDERED: INSULIN LISPRO 100 UNIT/ML 3 ML VIAL SUBCUT PRN (15:28)
[2017-10-28] MEDS ORDERED: DEXTROSE 40% GEL 15 GM TUBE PO PRN ×2 (15:28)
[2017-10-28] MEDS ORDERED: GLUCAGON,HUMAN RECOMB 1 MG INJ IM PRN (15:28)
[2017-10-28] MEDS ORDERED: DEXTROSE 50%-WATER 25 GM/50 ML DISP.SYRIN IV PRN ×2 (15:28)
[2017-10-28] MEDS ORDERED: VANCOMYCIN HCL 0 MG in DEXTROSE 5%-WATER 250 ML IV NR (15:30)
[2017-10-28] MEDS ORDERED: HYDROCODONE/ACETAMINOPHEN 5-325 MG TABLET PO PRN (15:31)
[2017-10-28] MEDS: HYDROCODONE/ACETAMINOPHEN 5-325 MG TABLET PO PRN ×3 (15:47→23:53)
--- NOTE | 2017-10-28 16:06 | PDOC H&P ---
History of Present Illness Admission Date/PCP: 10/28/17 14:51 Patient complains of: Lt foot pain, redness, swelling History of Present Illness: THA JOHNSON JR is a 41 year old male with a past medical history significant for diabetes mellitus, neuropathy, GERD, chronic back pain, depression/mood disorders, remote hx of cocaine abuse who presented to the emergency department on 10/26/17 with report of Lt foot pain and erythema after a puncture wound through the sole of his foot a few days previously. Imaging revealed a potential bone lesion to the calcaneus but was otherwise normal. He was placed on oral ciproflaxacin and discharged. He returns today with complaint of increased pain, erythema, and edema. Emergency department evaluation is essentially normal; patient is afebril, HR normal, normotensive, WBC 8.1, and other than glucose of 178 an unremarkable chemistry. The patient is referred to the hospitalist service for admission and management of left foot cellulitis. Past Medical History Cardiac Medical History: Reports: Hypertension Denies: Myocardial Infarction, Hyperlipidema, Peripheral Vascular Disease Pulmonary Medical History: Reports: Asthma Denies: Tuberculosis EENT Medical History: Reports: None Neurological Medical History: Reports: None Endocrine Medical History: Reports: Diabetes Mellitus Type 1, Diabetes Mellitus Type 2 Renal/ Medical History: Reports: None Malignancy Medical History: Reports: None GI Medical History: Reports: Gastroesophageal Reflux Disease Musculoskeltal Medical History: Reports: Arthritis - chronic back pain Skin Medical History: Reports: None Psychiatric Medical History: Reports: Attention Deficit Hyperactivity Disorder, Bipolar Disorder, Depression, Substance Abuse Traumatic Medical History: Reports: None Hematology: Reports: None Infectious Medical History: Reports: None Past Surgical History Past Surgical History: Reports: Cholecystectomy, Orthopedic Surgery - r pinkie, L leg fx as child Social History Information Source: Patient Lives with: Alone Smoking Status: Never Smoker Frequency of Alcohol Use: Occasional Hx Recreational Drug Use: Yes Drugs: Cocaine Hx Prescription Drug Abuse: No - Advance Directive Resuscitation Status: Do Not Resuscitate Surrogate healthcare decision maker:: The patient's sister, Alexandra Jarquin, Family History Family History: CAD, Hyperlipidemia, Hypertension Parental Family History Reviewed: Yes Children Family History Reviewed: Yes Sibling(s) Family History Reviewed.: Yes Medication/Allergy Home Medications: No Home Medications 10/28/17 Allergies/Adverse Reactions: Penicillins Allergy (Severe, Verified 10/26/17 14:42) ketorolac tromethamine [From Toradol] Allergy (Verified 10/26/17 14:42) acetaminophen [From Tylenol] Adverse Reaction (Mild, Verified 10/26/17 14:42) Nausea codeine [Codeine] Adverse Reaction (Verified 10/26/17 14:42) Nausea tramadol [Tramadol] Adverse Reaction (Verified 10/26/17 14:42) Nausea tramadol HCl [From Ultram] Adverse Reaction (Verified 10/26/17 14:42) Nausea Review of Systems Constitutional: ABSENT: chills, fever(s), headache(s), weight gain, weight loss Eyes: ABSENT: visual disturbances Ears: ABSENT: hearing changes Cardiovascular: ABSENT: chest pain, dyspnea on exertion, edema, orthropnea, palpitations Respiratory: ABSENT: cough, hemoptysis Gastrointestinal: ABSENT: abdominal pain, constipation, diarrhea, hematemesis, hematochezia, nausea, vomiting Genitourinary: ABSENT: dysuria, hematuria Musculoskeletal: ABSENT: joint swelling Integumentary: PRESENT: as per HPI, erythema, wounds. ABSENT: rash Neurological: ABSENT: abnormal gait, abnormal speech, confusion, dizziness, focal weakness, syncope Psychiatric: ABSENT: anxiety, depression, homidical ideation, suicidal ideation Endocrine: ABSENT: cold intolerance, heat intolerance, polydipsia, polyuria Hematologic/Lymphatic: ABSENT: easy bleeding, easy bruising Physical Exam Vital Signs: Temp Pulse Resp BP Pulse Ox 98.4 F 79 109/67 97 10/28/17 13:19 10/28/17 13:19 10/28/17 13:19 10/28/17 13:19 General appearance: PRESENT: no acute distress, well-developed, well-nourished, other - Overweight Head exam: PRESENT: atraumatic, normocephalic Eye exam: PRESENT: conjunctiva pink, EOMI, PERRLA. ABSENT: scleral icterus Ear exam: PRESENT: normal external ear exam Mouth exam: PRESENT: moist, tongue midline Neck exam: ABSENT: carotid bruit, JVD, lymphadenopathy, thyromegaly Respiratory exam: PRESENT: clear to auscultation blair, symmetrical, unlabored. ABSENT: rales, rhonchi, wheezes Cardiovascular exam: PRESENT: RRR, +S1, +S2. ABSENT: diastolic murmur, rubs, systolic murmur Pulses: PRESENT: normal dorsalis pedis pul Vascular exam: PRESENT: normal capillary refill GI/Abdominal exam: PRESENT: normal bowel sounds, soft. ABSENT: distended, guarding, mass, organolmegaly, rebound, tenderness Rectal exam: PRESENT: deferred Extremities exam: PRESENT: full ROM, pedal edema - Left foot. ABSENT: calf tenderness, clubbing Neurological exam: PRESENT: alert, awake, oriented to person, oriented to place , oriented to time, oriented to situation, CN II-XII grossly intact. ABSENT: motor sensory deficit Psychiatric exam: PRESENT: appropriate affect, normal mood. ABSENT: homicidal ideation, suicidal ideation Skin exam: PRESENT: dry, erythema - Erythema extending to mid foot; edema to ankle. No lymphangitis noted. Slightly tender to palpation. No puncture wound observed, warm. ABSENT: cyanosis, intact, rash Assessment & Plan - Diagnosis (1) Cellulitis of foot, left Is this a current diagnosis for this admission?: Yes Plan: The patient is admitted for worsening cellulitis of the left foot following 2 days of p.o. ciproflaxacin for the same. Vital signs and WBCs are normal. As the patient is diabetic and presented several days following injury, there is concern for potential deep tissue injury or retrained foreign body. Foot xray during the previous ED visit demonstrated a calcaneous lesion with recommendations for MRI follow up. Will further evaluate with MRI. Blood cultures are pending. IV Cipro for pseudomonas coverage as the patient stepped through the sole of his shoe. Pharmacy dosed vancomycin for coverage of MRSA. IV Flagyl for coverage of anaerobes. Elevate the extremity. Vinod hose as tolerated. Tylenol and [place] as needed for pain. (2) Diabetes mellitus Qualifiers: Diabetes mellitus type: type 2 Diabetes mellitus terminal supervisor insulin use: with mcc use Diabetes mellitus complication detail: with nephropathy Is this a current diagnosis for this admission?: Yes Plan: Metformin held while inpatient. The patient is placed on a consistent carb diet. Accuchecks ACHS with Humalog for sliding scale coverage. Discharge planning is consulted to assess for needs; patient states he has been without his medications for several weeks. (3) GERD (gastroesophageal reflux disease) Is this a current diagnosis for this admission?: Yes Plan: PPI (4) Diabetic neuropathy Qualifiers: Diabetes mellitus type: type 2 Is this a current diagnosis for this admission?: Yes Plan: Will start Gabapentin 100 mg po q8hrs - Time Time Spent: 50 to 70 Minutes Medications reviewed and adjusted accordingly: Yes Anticipated discharge: Home - Inpatient Certification Based on my medical assessment, after consideration of the patient's comorbidities, presenting symptoms, or acuity I expect that the services needed warrant INPATIENT care.: Yes I certify that my determination is in accordance with my understanding of Medicare's requirements for reasonable and necessary INPATIENT services [42 CFR 412.3e].: Yes Medical Necessity: Need for IV Antibiotics
[2017-10-28 17:22] LABS: URINE AMPHETAMINES SCREEN NEGATIVE; URINE BARBITURATES SCREEN NEGATIVE; URINE BENZODIAZEPINES SCREEN NEGATIVE; URINE METHADONE SCREEN NEGATIVE; URINE PHENCYCLIDINE SCREEN NEGATIVE
[2017-10-28 17:30] LABS: URINE MARIJUANA (THC) SCREEN UNCONFIRMED POSITIVE
--- NOTE | 2017-10-28 17:53 | RADIOLOGY REPORT (SQ) ---
EXAM DESCRIPTION: MRI LT LOWER EXTREMITY WITHOUT COMPLETED DATE/TIME: 10/28/2017 5:38 pm REASON FOR STUDY: ? deep tissue injury s/p plantar puncture COMPARISON: Plain radiograph TECHNIQUE: Multiplanar imaging of the left foot and ankle to include fat and fluid sensitive sequenc es. LIMITATIONS: None. FINDINGS: BONE MARROW: No marrow signal alteration. Specifically no marrow replacement or marrow ed doni. No evidence for osteomyelitis. No cortical break through. Area of concern in the calcaneus is normal on MR. Normal cortex and marrow. Artifactual finding on plain radiograph. SOFT TISSUES: Puncture wound head of the 5th metatarsal. No foreign body. No fluid collection. No bony abnormality. OTHER: No other significant finding. IMPRESSION: Normal calcaneus. No significant finding in relation to the puncture wound. No osteomyelitis. No foreign body. No fl uid collection. TECHNICAL DOCUMENTATION: JOB ID: [id number] [employer]- All Rights Reserved Reading location - IP/workstation name: [email or web address]
[2017-10-28] MEDS ORDERED: NICOTINE 14 MG/24 HR PATCH.TD24 TD ONE (20:30)
[2017-10-28] MEDS ORDERED: VANCOMYCIN HCL INJ 1000 MG VIAL ONE (21:05)
[2017-10-28] MEDS: METRONIDAZOLE 500 MG/NS RTU 100 ML IV SCH (21:19)
[2017-10-28] MEDS: ONDANSETRON HCL INJ/PF 4 MG/2 ML SDV IV PRN (21:19)
[2017-10-28] MEDS: KETOROLAC TROMETHAMINE INJ/PF 30 MG/1 ML SDV IV PRN (21:19)
[2017-10-28] MEDS: GABAPENTIN 100 MG CAPSULE PO SCH (22:42)
[2017-10-28] MEDS: FAMOTIDINE 20 MG TABLET PO SCH (22:42)
[2017-10-28] MEDS: VANCOMYCIN HCL 1,000 MG in NORMAL SALINE 250 ML IV SCH (22:42)
[2017-10-28] MEDS: HEPARIN SOD (PORCINE) 5,000 UNIT/ML 1 ML SYRINGE SUBCUT SCH (22:42)
[2017-10-29] MEDS: ONDANSETRON HCL INJ/PF 4 MG/2 ML SDV IV PRN ×2 (03:30→10:40)
[2017-10-29] MEDS: METRONIDAZOLE 500 MG/NS RTU 100 ML IV SCH ×2 (03:30→08:58)
[2017-10-29] MEDS: KETOROLAC TROMETHAMINE INJ/PF 30 MG/1 ML SDV IV PRN ×2 (03:31→22:27)
[2017-10-29 05:50] LABS: HEMATOCRIT 38.2 % (37.9-51.0); HEMOGLOBIN 13.4 g/dL (13.5-17.0); MEAN CORPUSCULAR HEMOGLOBIN 29.4 pg (27.0-33.4); MEAN CORPUSCULAR HGB CONC 35.1 g/dL (32.0-36.0); MEAN CORPUSCULAR VOLUME 84 fl (80-97); PLATELET COUNT 188 10^3/uL (150-450); RED BLOOD COUNT 4.56 10^6/uL (4.35-5.55); RED CELL DISTRIBUTION WIDTH 13.2 % (11.5-14.0); WHITE BLOOD COUNT 7.7 10^3/uL (4.0-10.5)
[2017-10-29] MEDS ORDERED: CIPROFLOXACIN 400 MG/D5W RTU 400 MG/200 ML RTUPB IV SCH (06:00)
[2017-10-29] MEDS: HEPARIN SOD (PORCINE) 5,000 UNIT/ML 1 ML SYRINGE SUBCUT SCH ×3 (06:34→22:28)
[2017-10-29] MEDS: VANCOMYCIN HCL 1,000 MG in NORMAL SALINE 250 ML IV SCH (06:34)
[2017-10-29] MEDS: HYDROCODONE/ACETAMINOPHEN 5-325 MG TABLET PO PRN ×4 (06:34→20:16)
[2017-10-29] MEDS: GABAPENTIN 100 MG CAPSULE PO SCH (06:34)
[2017-10-29 06:38] LABS: ANION GAP 8 (5-19); BLOOD UREA NITROGEN 17 mg/dL (7-20); CALCIUM 8.9 mg/dL (8.4-10.2); CARBON DIOXIDE 28 mmol/L (22-30); CHLORIDE 103 mmol/L (98-107); GLUCOSE 118 mg/dL (75-110); SODIUM 139.3 mmol/L (137-145)
[2017-10-29 06:45] LABS: POTASSIUM 4.1 mmol/L (3.6-5.0)
[2017-10-29] MEDS: DOCUSATE SODIUM 100 MG CAPSULE PO SCH (10:39)
[2017-10-29] MEDS: FAMOTIDINE 20 MG TABLET PO SCH ×2 (10:39→22:27)
[2017-10-29] MEDS ORDERED: GABAPENTIN 100 MG CAPSULE PO SCH (10:40)
[2017-10-29] MEDS: NICOTINE 14 MG/24 HR PATCH.TD24 TD SCH (10:40)
[2017-10-29] MEDS: GABAPENTIN 300 MG CAPSULE PO SCH ×2 (13:31→22:26)
--- NOTE | 2017-10-29 14:31 | PDOC PROGRESS REPORT ---
Subjective Progress Note for:: 10/29/17 Subjective:: The patient is a 41-year-old male with past medical history significant for diabetes mellitus, neuropathy, GERD, chronic back pain, depression/mood disorders, remote history of cocaine abuse who was admitted on 10/26/17 with left foot cellulitis. The patient is seen on morning rounds. He is found resting in bed comfortably with his extremity elevated. He continues to report pain 4/5. He states that he is unable to ambulate secondary to pain. He denies fever, chills, body aches, chest pain, palpitations, abdominal pain, nausea, vomiting, diarrhea. He has no new questions or concerns. Reason For Visit: CELLULITIS Physical Exam Vital Signs: Temp Pulse Resp BP Pulse Ox 97.9 F 55 L 20 105/61 99 10/29/17 07:27 10/29/17 07:27 10/29/17 07:27 10/29/17 07:27 10/29/17 07:27 Intake & Output 10/28/17 10/29/17 10/30/17 06:59 06:59 06:59 Intake Total 1620 100 Balance 1620 100 Weight 88.1 kg General appearance: PRESENT: no acute distress, well-developed, well-nourished Head exam: PRESENT: atraumatic, normocephalic Eye exam: PRESENT: conjunctiva pink, EOMI, PERRLA. ABSENT: scleral icterus Ear exam: PRESENT: normal external ear exam Mouth exam: PRESENT: moist, tongue midline Neck exam: ABSENT: carotid bruit, JVD, lymphadenopathy, thyromegaly Respiratory exam: PRESENT: clear to auscultation blair. ABSENT: rales, rhonchi, wheezes Cardiovascular exam: PRESENT: RRR. ABSENT: diastolic murmur, rubs, systolic murmur Pulses: PRESENT: normal dorsalis pedis pul Vascular exam: PRESENT: normal capillary refill GI/Abdominal exam: PRESENT: normal bowel sounds, soft. ABSENT: distended, guarding, mass, organolmegaly, rebound, tenderness Rectal exam: PRESENT: deferred Extremities exam: PRESENT: full ROM. ABSENT: calf tenderness, clubbing, pedal edema Neurological exam: PRESENT: alert, awake, oriented to person, oriented to place , oriented to time, oriented to situation, CN II-XII grossly intact. ABSENT: motor sensory deficit Psychiatric exam: PRESENT: appropriate affect, normal mood. ABSENT: homicidal ideation, suicidal ideation Skin exam: PRESENT: dry, intact, warm, other - Erythema and edema have resolved. ABSENT: cyanosis, erythema, rash Results Laboratory Results: 10/29/17 05:41 10/29/17 05:41 10/29/17 10/29/17 05:41 05:41 WBC 7.7 RBC 4.56 Hgb 13.4 L Hct 38.2 MCV 84 MCH 29.4 MCHC 35.1 RDW 13.2 Plt Count 188 Sodium 139.3 Potassium 4.1 Chloride 103 Carbon Dioxide 28 Anion Gap 8 BUN 17 Creatinine 0.88 Est GFR ( Amer) > 60 Est GFR (Non-Af Amer) > 60 Glucose 118 H Calcium 8.9 Impressions: Lower Extremity MRI 10/28/17 00:00 IMPRESSION: Normal calcaneus. No significant finding in relation to the puncture wound. No osteomyelitis. No foreign body. No fluid collection. Assessment & Plan - Diagnosis (1) Cellulitis of foot, left Is this a current diagnosis for this admission?: Yes Plan: The patient is admitted for worsening cellulitis of the left foot following 2 days of p.o. ciproflaxacin for the same. Vital signs and WBCs are normal. As the patient is diabetic and presented several days following injury, there is concern for potential deep tissue injury or retrained foreign body. Foot xray during the previous ED visit demonstrated a calcaneous lesion with recommendations for MRI follow up. MRI is benign. Blood cultures are pending. IV Cipro for pseudomonas coverage as the patient stepped through the sole of his shoe. Pharmacy dosed vancomycin for coverage of MRSA. IV Flagyl for coverage of anaerobes. Elevate the extremity. Vinod hose as tolerated. Tylenol and [place] as needed for pain. (2) Diabetes mellitus Qualifiers: Diabetes mellitus type: type 2 Diabetes mellitus fpc insulin use: with termite exterminator helper use Diabetes mellitus complication detail: with nephropathy Is this a current diagnosis for this admission?: Yes Plan: Metformin held while inpatient. The patient is placed on a consistent carb diet. Accuchecks ACHS with Humalog for sliding scale coverage. Discharge planning is consulted to assess for needs; patient states he has been without his medications for several weeks. (3) GERD (gastroesophageal reflux disease) Is this a current diagnosis for this admission?: Yes Plan: PPI (4) Diabetic neuropathy Qualifiers: Diabetes mellitus type: type 2 Is this a current diagnosis for this admission?: Yes Plan: Will increase Gabapentin to 300 mg po q8hrs - Time Time Spent with patient: 15-24 minutes Medications reviewed and adjusted accordingly: Yes Anticipated discharge: Home Within: within 48 hours - Inpatient Certification Based on my medical assessment, after consideration of the patient's comorbidities, presenting symptoms, or acuity I expect that the services needed warrant INPATIENT care.: Yes I certify that my determination is in accordance with my understanding of Medicare's requirements for reasonable and necessary INPATIENT services [42 CFR 412.3e].: Yes Medical Necessity: Need for IV Antibiotics
[2017-10-29 14:37] LABS: VANCOMYCIN,TROUGH 10.4 ug/mL (5.0-20.0)
[2017-10-29] MEDS ORDERED: SULFAMETHOXAZOLE/TRIMETHOPRIM 800-160 MG TABLET PO ONE ×2 (15:00)
[2017-10-29] MEDS ORDERED: ZOLPIDEM TARTRATE 5 MG TABLET PO PRN (22:00)
[2017-10-29] MEDS: SULFAMETHOXAZOLE/TRIMETHOPRIM 800-160 MG TABLET PO SCH (22:26)
[2017-10-30] MEDS: HYDROCODONE/ACETAMINOPHEN 5-325 MG TABLET PO PRN ×5 (02:10→23:49)
[2017-10-30] MEDS: GABAPENTIN 300 MG CAPSULE PO SCH (06:13)
[2017-10-30] MEDS: KETOROLAC TROMETHAMINE INJ/PF 30 MG/1 ML SDV IV PRN ×2 (06:13→16:53)
[2017-10-30] MEDS: HEPARIN SOD (PORCINE) 5,000 UNIT/ML 1 ML SYRINGE SUBCUT SCH ×3 (06:14→23:47)
[2017-10-30 06:27] LABS: HEMATOCRIT 38.7 % (37.9-51.0); HEMOGLOBIN 13.5 g/dL (13.5-17.0); MEAN CORPUSCULAR HEMOGLOBIN 29.2 pg (27.0-33.4); MEAN CORPUSCULAR HGB CONC 34.8 g/dL (32.0-36.0); MEAN CORPUSCULAR VOLUME 84 fl (80-97); PLATELET COUNT 183 10^3/uL (150-450); RED BLOOD COUNT 4.61 10^6/uL (4.35-5.55); WHITE BLOOD COUNT 5.7 10^3/uL (4.0-10.5)
[2017-10-30 06:47] LABS: ANION GAP 10 (5-19); BLOOD UREA NITROGEN 13 mg/dL (7-20); CARBON DIOXIDE 27 mmol/L (22-30); CHLORIDE 105 mmol/L (98-107); GLUCOSE 98 mg/dL (75-110); POTASSIUM 4.1 mmol/L (3.6-5.0); SODIUM 142.1 mmol/L (137-145)
[2017-10-30] MEDS ORDERED: GABAPENTIN 300 MG CAPSULE PO SCH (08:48)
[2017-10-30] MEDS: FAMOTIDINE 20 MG TABLET PO SCH ×2 (10:08→23:48)
[2017-10-30] MEDS: DOCUSATE SODIUM 100 MG CAPSULE PO SCH (10:08)
[2017-10-30] MEDS: SULFAMETHOXAZOLE/TRIMETHOPRIM 800-160 MG TABLET PO SCH ×2 (10:08→23:49)
[2017-10-30] MEDS: NICOTINE 14 MG/24 HR PATCH.TD24 TD SCH (10:08)
[2017-10-30] MEDS: GABAPENTIN 400 MG CAPSULE PO SCH ×2 (14:21→23:48)
[2017-10-30] MEDS: ONDANSETRON HCL INJ/PF 4 MG/2 ML SDV IV PRN (16:52)
--- NOTE | 2017-10-30 17:16 | PDOC PROGRESS REPORT ---
Subjective Progress Note for:: 10/30/17 Subjective:: HTA JOHNSON JR is a 41 year old male with a PMH of diabetes, neuropathy, GERD, chronic back pain, depression/mood disorders, remote history of cocaine abuse who was admitted on 10/26/2017 for left foot cellulitis. The patient is seen on morning rounds, he is resting comfortably in bed on room air. He continues to report pain 4-5/5 to the L foot, he also states he has parasthesia to toes 2-5. The patient states that he is unable to ambulate secondary to his pain and numbness to the left foot. The patient denies fever, chills, body aches. The patient is concerned about discharge because he doesn't know how he is supposed to ambulate with a numb/painful foot. Plan to ambulate the patient today, if he does is unable to do so, will send home with crutches and stronger prescription for gabapentin. Reason For Visit: CELLULITIS Physical Exam Vital Signs: Temp Pulse Resp BP Pulse Ox 98.3 F 74 13 117/57 L 95 10/30/17 12:00 10/30/17 12:00 10/30/17 12:00 10/30/17 12:00 10/30/17 12:00 Intake & Output 10/29/17 10/30/17 10/31/17 06:59 06:59 06:59 Intake Total 1620 1766 Output Total 175 Balance 1620 1591 Weight 88.1 kg 93.3 kg General appearance: PRESENT: no acute distress, well-developed, well-nourished Head exam: PRESENT: atraumatic, normocephalic Eye exam: PRESENT: conjunctiva pink, EOMI, PERRLA. ABSENT: scleral icterus Ear exam: PRESENT: normal external ear exam Mouth exam: PRESENT: moist, tongue midline Neck exam: ABSENT: carotid bruit, JVD, lymphadenopathy, thyromegaly Respiratory exam: PRESENT: clear to auscultation blair. ABSENT: rales, rhonchi, wheezes Cardiovascular exam: PRESENT: RRR. ABSENT: diastolic murmur, rubs, systolic murmur Pulses: PRESENT: normal dorsalis pedis pul Vascular exam: PRESENT: normal capillary refill GI/Abdominal exam: PRESENT: normal bowel sounds, soft. ABSENT: distended, guarding, mass, organolmegaly, rebound, tenderness Rectal exam: PRESENT: deferred Extremities exam: PRESENT: full ROM, tenderness. ABSENT: calf tenderness, clubbing, pedal edema Musculoskeletal exam: PRESENT: full ROM, tenderness - dorsal aspect of L foot. ABSENT: ambulatory Neurological exam: PRESENT: alert, awake, oriented to person, oriented to place , oriented to time, oriented to situation, motor sensory deficit Psychiatric exam: PRESENT: appropriate affect, normal mood Skin exam: PRESENT: dry, intact, warm. ABSENT: cyanosis, rash Results Laboratory Results: 10/30/17 06:16 10/30/17 06:16 10/30/17 10/30/17 06:16 06:16 WBC 5.7 RBC 4.61 Hgb 13.5 Hct 38.7 MCV 84 MCH 29.2 MCHC 34.8 RDW 13.0 Plt Count 183 Sodium 142.1 Potassium 4.1 Chloride 105 Carbon Dioxide 27 Anion Gap 10 BUN 13 Creatinine 0.85 Est GFR ( Amer) > 60 Est GFR (Non-Af Amer) > 60 Glucose 98 Calcium 9.0 Impressions: Lower Extremity MRI 10/28/17 00:00 IMPRESSION: Normal calcaneus. No significant finding in relation to the puncture wound. No osteomyelitis. No foreign body. No fluid collection. Status: Imported from PACS Assessment & Plan - Diagnosis (1) Cellulitis of foot, left Is this a current diagnosis for this admission?: Yes Plan: The patient was admitted for worsening cellulitis of the left foot following 2 days of p.o. ciprofloxacin. Vital signs and WBCs are normal. The patient is diabetic, presented several days following injury, there is concern of potential deep tissue injury or retained foreign body. Foot x-ray during the previous ER visit demonstrated calcaneus lesion with recommendations for MRI follow-up. MRI completed this hospitalization is benign. Blood cultures no growth to date. Dr. Russell with [facility] infectious disease review the patient's case. Plan to continue Bactrim twice daily. Elevate the extremity. SOLANGE hose as tolerated. Tylenol and [place] as needed for pain. (2) Diabetes mellitus Qualifiers: Diabetes mellitus type: type 2 Diabetes mellitus long term care pharmacist insulin use: with senior care use Diabetes mellitus complication detail: with nephropathy Is this a current diagnosis for this admission?: Yes Plan: Accu-Cheks before meals at bedtime with Humalog for sliding scale coverage. Metformin currently on hold while inpatient. Consistent carb diet. Discharge planning consulted to assess for needs, patient states he has been without his medications for several weeks. (3) Diabetic neuropathy Qualifiers: Diabetes mellitus type: type 2 Is this a current diagnosis for this admission?: Yes Plan: Patient still endorses paresthesia and "burning" pain to the left lower extremity. Increase gabapentin to 400 mg p.o. every 8 hours (4) GERD (gastroesophageal reflux disease) Is this a current diagnosis for this admission?: Yes Plan: PPI - Time Time Spent with patient: 15-24 minutes Medications reviewed and adjusted accordingly: Yes Anticipated discharge: Home Within: within 24 hours - Inpatient Certification Based on my medical assessment, after consideration of the patient's comorbidities, presenting symptoms, or acuity I expect that the services needed warrant INPATIENT care.: Yes I certify that my determination is in accordance with my understanding of Medicare's requirements for reasonable and necessary INPATIENT services [42 CFR 412.3e].: Yes Medical Necessity: Risk of Complication if Not Cared For in Hospital - Plan Summary Plan Summary: Ultimately, the plan is to discharge the patient home with p.o. antibiotics and follow-up to a PMD. Additionally, appreciate discharge planning assistance in obtaining diabetes medications for this patient.
[2017-10-31 06:03] LABS: HEMATOCRIT 36.4 % (37.9-51.0); HEMOGLOBIN 12.7 g/dL (13.5-17.0); MEAN CORPUSCULAR HEMOGLOBIN 29.3 pg (27.0-33.4); MEAN CORPUSCULAR VOLUME 84 fl (80-97); PLATELET COUNT 199 10^3/uL (150-450); RED BLOOD COUNT 4.34 10^6/uL (4.35-5.55); RED CELL DISTRIBUTION WIDTH 12.8 % (11.5-14.0); WHITE BLOOD COUNT 7.1 10^3/uL (4.0-10.5)
[2017-10-31] MEDS: HEPARIN SOD (PORCINE) 5,000 UNIT/ML 1 ML SYRINGE SUBCUT SCH (06:15)
[2017-10-31] MEDS: GABAPENTIN 400 MG CAPSULE PO SCH (06:15)
[2017-10-31 06:19] LABS: ANION GAP 8 (5-19); BLOOD UREA NITROGEN 14 mg/dL (7-20); CALCIUM 8.5 mg/dL (8.4-10.2); CARBON DIOXIDE 32 mmol/L (22-30); CHLORIDE 103 mmol/L (98-107); GLUCOSE 108 mg/dL (75-110); POTASSIUM 3.8 mmol/L (3.6-5.0); SODIUM 142.5 mmol/L (137-145)
[2017-10-31] MEDS: FAMOTIDINE 20 MG TABLET PO SCH (10:22)
[2017-10-31] MEDS: SULFAMETHOXAZOLE/TRIMETHOPRIM 800-160 MG TABLET PO SCH (10:22)
[2017-10-31] MEDS: NICOTINE 14 MG/24 HR PATCH.TD24 TD SCH (10:22)
[2017-10-31] MEDS: HYDROCODONE/ACETAMINOPHEN 5-325 MG TABLET PO PRN (10:23)
[2017-10-31] MEDS: DOCUSATE SODIUM 100 MG CAPSULE PO SCH (10:23)
[2017-10-31 12:24] VITALS: BP 103/61
== END 2017-10-31 12:00 | disposition home or self-care (01) | DRG 603 ==
LOC: ER 13:03 → EH 14:51 → 4S 17:54
PROVIDERS: ADMIT Internal Medicine; ATTEND Internal Medicine
PROC: 3E0234Z Introduction of Serum, Toxoid and Vaccine into Muscle, Percutaneous Approach (ICD-10-PCS; principal; 2017-10-28)
DX: L03.116 Cellulitis of left lower limb (principal); E11.21 Type 2 diabetes mellitus with diabetic nephropathy; S91.332A Puncture wound without foreign body, left foot, initial encounter; I10 Essential (primary) hypertension; K21.9 Gastro-esophageal reflux disease without esophagitis; M79.672 Pain in left foot; F90.9 Attention-deficit hyperactivity disorder, unspecified type; F20.9 Schizophrenia, unspecified; F31.9 Bipolar disorder, unspecified; W45.8XXA Other foreign body or object entering through skin, initial encounter; W22.8XXA Striking against or struck by other objects, initial encounter; Y93.01 Activity, walking, marching and hiking; Z23 Encounter for immunization; Z88.0 Allergy status to penicillin; Z88.8 Allergy status to other drugs, medicaments and biological substances; Y92.096 Garden or yard of other non-institutional residence as the place of occurrence of the external cause
CPT/HCPCS: 36415; 80048; 80053; 80202; 80307; 82962; 85025; 85027; 87040; 90714; 99284; J0744; J1644; J1885; J2405; J3370; J3490; J7050

== ENCOUNTER 2017-12-30 03:14 | Inpatient (IN) | payer MEDICAID ==
--- NOTE | 2017-12-30 07:39 | ER Document Report ---
ED Extremity Problem, Lower <ILEANA MELVIN - Last Filed: 12/30/17 09:58> - General Mode of Arrival: Ambulatory Information source: Patient TRAVEL OUTSIDE OF THE [place] IN LAST 30 DAYS: No <MAN SHI - Last Filed: 12/31/17 09:52> - General Chief Complaint: Foot Pain Stated Complaint: LEFT FOOT PAIN Time Seen by Provider: 12/30/17 07:27 Notes: Patient is a 42 year old male with diabetes, hypertension and a history of kidney stones presents to the emergency department complaining of left foot pain onset 2 days ago. Patient was seen in the emergency department on 2017 after stepping on an sharp object with his left foot and was discharged home with antibiotics. Patient then returned on 10/28/2017 for worsening pain in left foot and was admitted to the hospital for 3 days after being diagnosed with cellulitis. Patient denies any new trauma or injury. According to [facility] records patient was admitted in 2011 with cellulitis of the same foot. Patient is noncompliant with his diabetes medications, stating he simply does not want to take them. Patient's PCP is Dr. Cline. (MAN SHI) - Related Data Allergies/Adverse Reactions: Penicillins Allergy (Severe, Verified 10/26/17 14:42) ketorolac tromethamine [From Toradol] Allergy (Verified 10/26/17 14:42) acetaminophen [From Tylenol] Adverse Reaction (Mild, Verified 10/26/17 14:42) Nausea codeine [Codeine] Adverse Reaction (Verified 10/26/17 14:42) Nausea tramadol [Tramadol] Adverse Reaction (Verified 10/26/17 14:42) Nausea tramadol HCl [From Ultram] Adverse Reaction (Verified 10/26/17 14:42) Nausea Past Medical History - General Information source: Patient - Social History Smoking Status: Current Every Day Smoker Chew tobacco use (# tins/day): Yes Frequency of alcohol use: None Family History: CAD, Hyperlipidemia, Hypertension Patient has suicidal ideation: No Patient has homicidal ideation: No - Past Medical History Cardiac Medical History: Reports: Hx Hypertension Pulmonary Medical History: Reports: Hx Asthma Endocrine Medical History: Reports: Hx Diabetes Mellitus Type 1, Hx Diabetes Mellitus Type 2 Renal/ Medical History: Reports: Hx Kidney Stones GI Medical History: Reports: Hx Gastroesophageal Reflux Disease Musculoskeltal Medical History: Reports Hx Arthritis - chronic back pain Skin Medical History: Reports Hx MRSA Psychiatric Medical History: Reports: Hx Anxiety, Hx Attention Deficit Hyperactivity Disorder, Hx Bipolar Disorder, Hx Depression, Hx Schizophrenia Past Surgical History: Reports: Hx Cholecystectomy, Hx Orthopedic Surgery - r pinkie, L leg fx as child - Immunizations Hx Diphtheria, Pertussis, Tetanus Vaccination: Yes - 10/19/12 <MAN SHI - Last Filed: 12/31/17 09:52> Review of Systems - Review of Systems Constitutional: No symptoms reported EENT: No symptoms reported Cardiovascular: No symptoms reported Respiratory: No symptoms reported Gastrointestinal: No symptoms reported Genitourinary: No symptoms reported Male Genitourinary: No symptoms reported Musculoskeletal: See HPI Skin: No symptoms reported Hematologic/Lymphatic: No symptoms reported Neurological/Psychological: No symptoms reported -: Yes All other systems reviewed and negative <MAN SHI - Last Filed: 12/31/17 09:52> Physical Exam <ILEANA MELVIN - Last Filed: 12/30/17 09:58> - General General appearance: Appears well, Alert In distress: None - HEENT Head: Normocephalic, Atraumatic Eyes: Normal Extraocular movements intact: Yes Pupils: PERRL Neck: Normal - Respiratory Respiratory status: No respiratory distress - Cardiovascular Rhythm: Regular Heart sounds: Normal auscultation Murmur: No Friction rub: No Gallop: None auscultated - Abdominal Inspection: Normal Distension: No distension Bowel sounds: Normal Tenderness: Nontender Organomegaly: No organomegaly - Extremities General upper extremity: Normal ROM General lower extremity: Normal ROM Foot: Tender - Left foot on the plantar surface laterally beneath the 3-4 metatarsal is tender to palpation. On the plantar surface distal 2nd metatarsal head is tender to palpation. Entire plantar surface is chronically hard. No erythema or swelling to the dorsal aspect of left foot. Plantar aspect of left foot is minimally swollen and very tender to palpation. - Neurological Neuro grossly intact: Yes Cognition: Normal Orientation: AAOx4 Jose Coma Scale Eye Opening: Spontaneous Leslie Coma Scale Verbal: Oriented Leslie Coma Scale Motor: Obeys Commands Jose Coma Scale Total: 15 Speech: Normal - Psychological Associated symptoms: Normal affect, Normal mood - Skin Skin Temperature: Warm Skin Moisture: Dry <MAN SHI - Last Filed: 12/31/17 09:52> - Vital signs Vitals: Temp Pulse Resp BP Pulse Ox 97.5 F 102 H 16 125/76 100 12/30/17 07:08 12/30/17 07:08 12/30/17 07:08 12/30/17 07:08 12/30/17 07:08 - Skin Notes: See extremities. (MAN SHI) Course - Laboratory Result Diagrams: 12/30/17 08:04 12/30/17 08:04 - Consults Cathy Wallis RN Time consulted: 09:05 Consulted provider: will come to ER <ILEANA MELVIN - Last Filed: 12/30/17 09:58> - Laboratory Result Diagrams: 12/30/17 08:04 12/30/17 08:04 <MAN SHI - Last Filed: 12/31/17 09:52> - Vital Signs Vital signs: Temp Pulse Resp BP Pulse Ox 98.0 F 80 16 130/79 H 100 12/30/17 11:58 12/30/17 11:58 12/30/17 11:58 12/30/17 11:58 12/30/17 11:58 - Laboratory Laboratory results interpreted by me: 12/30/17 12/30/17 12/30/17 08:04 08:04 08:04 Lymphocytes % 47.4 H Potassium 3.2 L Hemoglobin A1c % 6.4 H ALT 20 L Alkaline Phosphatase 37 L Creatine Kinase 220 H Total Protein 5.6 L Albumin 3.4 L Discharge - Discharge Admitting Provider: Hospitalist Unit Admitted: Medical Floor <ILEANA MELVIN - Last Filed: 12/30/17 09:58> <MAN SHI - Last Filed: 12/31/17 09:52> - Discharge Clinical Impression: Cellulitis of foot, left, Foot pain, left Diabetes mellitus Qualifiers: Diabetes mellitus type: type 2 Diabetes mellitus end packer insulin use: unspecified group home insulin use status Diabetes mellitus complication status: with unspecified complications Qualified Code(s): E11.8 - Type 2 diabetes mellitus with unspecified complications Diabetic neuropathy Qualifiers: Diabetes mellitus type: type 2 Diabetes mellitus complication detail: diabetic mononeuropathy Qualified Code(s): E11.41 - Type 2 diabetes mellitus with diabetic mononeuropathy Condition: Stable Disposition: HOME, SELF-CARE Scribe Attestation: 12/30/17 09:11 I personally performed the services described in the documentation, reviewed and edited the documentation which was dictated to the scribe in my presence, and it accurately records my words and actions. (ILEANA MELVIN) Scribe Documentation - Scribe Written by Scrlelae:: Marina Mullen, 12/30/2017 07:56 acting as scribe for :: Danitza <MAN SHI - Last Filed: 12/31/17 09:52>
[2017-12-30] MEDS ORDERED: FENTANYL CITRATE INJ/PF 100 MCG/2 ML AMPUL IV ONE ×2 (07:43→09:58)
[2017-12-30 08:23] LABS: ABSOLUTE BASOPHILS # (AUTO) 0.1 10^3/uL (0.0-0.2); ABSOLUTE EOSINOPHILS # (AUTO) 0.1 10^3/uL (0.0-0.6); ABSOLUTE MONOCYTES (AUTO) 0.4 10^3/uL (0.1-1.4); ABSOLUTE NEUT (AUTO) 3.9 10^3/uL (1.7-8.2); BASOPHILS % (AUTO) 1.2 % (0-2); EOSINOPHILS % (AUTO) 1.5 % (0-6); HEMATOCRIT 39.8 % (37.9-51.0); HEMOGLOBIN 13.9 g/dL (13.5-17.0); LYMPHOCYTES % (AUTO) 47.4 % (13-45); MEAN CORPUSCULAR HEMOGLOBIN 29.4 pg (27.0-33.4); MEAN CORPUSCULAR VOLUME 84 fl (80-97); MONOCYTES % (AUTO) 4.6 % (3-13); PLATELET COUNT 187 10^3/uL (150-450); RED BLOOD COUNT 4.74 10^6/uL (4.35-5.55); RED CELL DISTRIBUTION WIDTH 13.6 % (11.5-14.0); SEGMENTED NEUTROPHILS % (AUTO) 45.3 % (42-78); TOTAL CELLS COUNTED % (AUTO) 100 %; WHITE BLOOD COUNT 8.5 10^3/uL (4.0-10.5)
[2017-12-30 08:45] LABS: ALANINE AMINOTRANSFERASE 20 U/L (21-72); ALBUMIN 3.4 g/dL (3.5-5.0); ALKALINE PHOSPHATASE 37 U/L (38-126); ANION GAP 10 (5-19); ASPARTATE AMINO TRANSFERASE 18 U/L (17-59); BILIRUBIN,DIRECT 0.3 mg/dL (0.0-0.4); BLOOD UREA NITROGEN 8 mg/dL (7-20); CARBON DIOXIDE 30 mmol/L (22-30); CHLORIDE 105 mmol/L (98-107); CREATINE KINASE 220 U/L (55-170); GLUCOSE 107 mg/dL (75-110); POTASSIUM 3.2 mmol/L (3.6-5.0); SODIUM 144.8 mmol/L (137-145); TOTAL PROTEIN 5.6 g/dL (6.3-8.2)
[2017-12-30] MEDS ORDERED: VANCOMYCIN HCL INJ 1000 MG VIAL IV ONE (08:50)
[2017-12-30] MEDS ORDERED: POTASSIUM CHLORIDE 20 MEQ/15 ML UDCUP PO ONE (08:51)
[2017-12-30] MEDS ORDERED: CIPROFLOXACIN 400 MG/D5W RTU 400 MG/200 ML RTUPB IV ONE (08:51)
[2017-12-30] MEDS ORDERED: HYDROCODONE/ACETAMINOPHEN 5-325 MG (6 TAB/ER DISP) PO PRN (10:46)
[2017-12-30] MEDS ORDERED: ONDANSETRON ODT 4 MG TAB (6 TAB/ER DISP) PO PRN (10:51)
[2017-12-30 11:59] VITALS: BP 130/79
[2017-12-30] MEDS ORDERED: ONDANSETRON ODT 4 MG TAB (6 TAB/ER DISP) ONE (12:28)
[2017-12-30] MEDS ORDERED: HYDROCODONE/ACETAMINOPHEN 5-325 MG (6 TAB/ER DISP) ONE (12:28)
[2017-12-30] MEDS ORDERED: HYDROCODONE/ACETAMINOPHEN 5-325 MG TABLET PO ONE (13:05)
[2017-12-30] MEDS ORDERED: ONDANSETRON 4 MG TAB.RAPDIS PO ONE (13:05)
--- NOTE | 2018-01-03 16:24 | PDOC DISCHARGE SUMMARY ---
General - Admit/Disc Date/PCP Admission Date/Primary Care Provider: 12/30/17 09:38 Discharge Date: 12/30/17 - Discharge Diagnosis (1) Diabetes mellitus Is this a current diagnosis for this admission?: Yes (2) Foot pain, left Is this a current diagnosis for this admission?: Yes - Additional Information Discharge Diet: As Tolerated Discharge Activity: Activity As Tolerated, Keep Legs Elevated - ELEVATE L FOOT WHENEVER POSSIBLE History of Present Illness History of Present Illness: THA JOHNSON JR is a 42 year old male with diabetes, hypertension and a history of kidney stones presents to the emergency department complaining of left foot pain onset 2 days ago. Patient was seen in the emergency department on 10/26/2017 after stepping on an sharp object with his left foot and was discharged home with antibiotics. Patient then returned on 10/28/2017 for worsening pain in left foot and was admitted to the hospital for 3 days after being diagnosed with cellulitis. Patient denies any new trauma or injury. According to [facility] records patient was admitted in 2011 with cellulitis of the same foot. Patient is noncompliant with his diabetes medications, stating he simply does not want to take them. Hospital Course Hospital Course: 42 y.o. M seen in the ED for L foot pain. The patient endorses pain to the plantar aspect of the L foot. +TTP to the entire surface of the foot. There is no redness or swelling to the L foot, no abscess or puncture site. The patient is afebrile, his lab work is benign. Of note, the patient was recently admitted 2 months ago for cellulitis of the same foot after stepping on a foreign object. The patient denies any new trauma to the L foot. Following the physical assessment and discussion with hospitalist attending, the decision was made to discharge the patient home from the ED. There was relatively low suspicion for cellulitis given his presentation, lab work, and normal vital signs. The decision was made that the patient did not meet criteria for admission and that his symptoms could be managed as an outpatient. The patient was discharged with a prescription for pain medication and anti- nausea medication. He was instructed to follow up with a supervisor fryer farm, and given several referrals. Additionally, the patient was counseled about the importance of managing his diabetes. Physical Exam Vital Signs: Temp Pulse Resp BP Pulse Ox 98.0 F 80 16 130/79 H 100 12/30/17 11:58 06/17/18 11:58 12/30/17 11:58 12/30/17 11:58 12/30/17 11:58 Results Status: Imported from PACS Qualifiers - * PATIENT BEING DISCHARGED WITH ANY OF THE FOLLOWING DIAGNOSIS: No Plan Discharge Plan: DISCHARGE HOME WITH PAIN MEDICATION AND ANTINAUSEA MEDICATION. INSTRUCTED TO FOLLOW UP WITH FACTORY SUPERVISOR. Time Spent: Less than 30 Minutes
== END 2017-12-30 12:39 | disposition home or self-care (01) | DRG 74 ==
LOC: ER 03:14 → EH 09:38
PROVIDERS: ADMIT Internal Medicine; ATTEND Internal Medicine
DX: E11.41 Type 2 diabetes mellitus with diabetic mononeuropathy (principal); M79.672 Pain in left foot; T50.996A Underdosing of other drugs, medicaments and biological substances, initial encounter; I10 Essential (primary) hypertension; J45.909 Unspecified asthma, uncomplicated; K21.9 Gastro-esophageal reflux disease without esophagitis; F90.9 Attention-deficit hyperactivity disorder, unspecified type; F41.8 Other specified anxiety disorders; F31.9 Bipolar disorder, unspecified; F17.210 Nicotine dependence, cigarettes, uncomplicated; Z91.128 Patient's intentional underdosing of medication regimen for other reason; Y92.098 Other place in other non-institutional residence as the place of occurrence of the external cause
CPT/HCPCS: 36415; 80053; 82550; 83036; 85025; 87040; 96365; 96375; 99284; J0744; J3010; J3370

== ENCOUNTER 2018-04-28 19:11 | Emergency (ER) | payer MEDICAID ==
[2018-04-28] MEDS ORDERED: MORPHINE SULFATE IR 15 MG TABLET PO ONE (20:16)
[2018-04-28] MEDS ORDERED: IBUPROFEN 600 MG TABLET PO ONE (20:16)
--- NOTE | 2018-04-28 20:19 | ER Document Report ---
ED General - General Chief Complaint: Head Injury Stated Complaint: FALL/LIP AND EAR PAIN Time Seen by Provider: 04/28/18 19:42 Notes: Patient is a 42-year-old male without chronic medical problems, no use of anticoagulation who presents after apparently falling and striking his face and head last night while intoxicated. Patient states that approximately 3 AM yesterday morning he stumbled and fell while drunk and striking his left lower lip and left ear. States he did not lose consciousness. States that when he woke up he realized that he must of hit his face worse than he had thought as he was having a dull, throbbing, constant pain to his left ear, left temporal scalp and over his left lower lip. He has not had any vomiting, weakness, numbness, confusion. He has not seen his general doctor regarding today's concerns. He states his tetanus is already up-to-date. His main complaint is of left ear pain. Nothing improves or worsens his pain. TRAVEL OUTSIDE OF THE [place] IN LAST 30 DAYS: No - Related Data Allergies/Adverse Reactions: Penicillins Allergy (Severe, Verified 04/28/18 19:36) ketorolac tromethamine [From Toradol] Allergy (Verified 04/28/18 19:36) acetaminophen [From Tylenol] Adverse Reaction (Mild, Verified 04/28/18 19:36) Nausea codeine [Codeine] Adverse Reaction (Verified 04/28/18 19:36) Nausea tramadol [Tramadol] Adverse Reaction (Verified 04/28/18 19:36) Nausea tramadol HCl [From Ultram] Adverse Reaction (Verified 04/28/18 19:36) Nausea Past Medical History - General Information source: Patient - Social History Smoking Status: Former Smoker Chew tobacco use (# tins/day): - dip Frequency of alcohol use: Rare Drug Abuse: None Lives with: Alone Family History: CAD, Hyperlipidemia, Hypertension Patient has suicidal ideation: No Patient has homicidal ideation: No - Past Medical History Cardiac Medical History: Reports: Hx Hypertension Denies: Hx Heart Attack, Hx Hypercholesterolemia, Hx Peripheral Vascular Disease Pulmonary Medical History: Reports: Hx Asthma Denies: Hx Tuberculosis Endocrine Medical History: Reports: Hx Diabetes Mellitus Type 1, Hx Diabetes Mellitus Type 2 Renal/ Medical History: Reports: Hx Kidney Stones. Denies: Hx Peritoneal Dialysis GI Medical History: Reports: Hx Gastroesophageal Reflux Disease Musculoskeletal Medical History: Reports Hx Arthritis - chronic back pain Skin Medical History: Reports Hx MRSA Psychiatric Medical History: Reports: Hx Anxiety, Hx Attention Deficit Hyperactivity Disorder, Hx Bipolar Disorder, Hx Depression, Hx Schizophrenia Past Surgical History: Reports: Hx Cholecystectomy, Hx Orthopedic Surgery - r pinkie, L leg fx as child - Immunizations Hx Diphtheria, Pertussis, Tetanus Vaccination: Yes - 10/19/12 Review of Systems - Review of Systems Notes: Constitutional: Negative for fever. Eyes: Negative for visual changes. ENT: Positive for facial injury Cardiovascular: Negative for chest injury. Respiratory: Negative for shortness of breath. Gastrointestinal: Negative for abdominal injury. Genitourinary: Negative for genital injury Musculoskeletal: Negative for back injury. Skin: Positive for laceration/abrasions. Neurological: Positive for head injury. Physical Exam - Vital signs Vitals: Temp Pulse Resp BP Pulse Ox 98.7 F 88 14 117/69 97 04/28/18 19:17 04/28/18 19:17 04/28/18 19:17 04/28/18 19:17 04/28/18 19:17 Interpretation: Normal Notes: PHYSICAL EXAMINATION: GENERAL: Well-appearing, no acute distress. HEAD: Atraumatic, normocephalic. EYES: Pupils equal round and reactive to light, extraocular movements intact, sclera anicteric, conjunctiva are normal. ENT: nares patent, no oral pharyngeal trauma. Diffuse swelling and erythema of the left external ear without drainable collection. no hemotympanum, no Piedra' s sign, no raccoon eyes. NECK: No midline cervical spine tenderness. Patient able to move their head to 45 bilaterally without any discomfort. LUNGS: Breath sounds clear to auscultation bilaterally and equal. No wheezes rales or rhonchi. HEART: Regular rate and rhythm without murmurs. CHEST WALL: No ecchymosis over the chest wall. ABDOMEN: Soft, nontender, normoactive bowel sounds. No guarding, no rebound. No abdominal bruising EXTREMITIES: Normal range of motion, no pitting or edema. No long bone deformities. BACK: No midline spinal tenderness, step-offs, or deformities. NEUROLOGICAL: Face symmetric. Tongue protrudes midline. Extraocular motions intact. Pupils are 2 mm and equally reactive. Normal speech, normal gait. 5 out of 5 strength in both the distal and proximal upper and lower extremities bilaterally. Sensation is grossly intact throughout. Finger to nose testing normal. Pronator drift normal. PSYCH: Normal mood, normal affect. SKIN: Warm, Dry, normal turgor, abrasions over the left cheek, superficial laceration over the left lower lip and chin Course - Re-evaluation Re-evalutation: 04/28/18 20:17 Presentation of head trauma in an otherwise well-appearing patient. No focal neurologic deficits on exam, no evidence of basilar skull fracture on exam without evidence of hemotympanum, raccoon eyes, or periauricular hematoma. No papilledema. Patient is not on anticoagulation. GCS is 15. No loss of consciousness. No episodes of vomiting. Patient is therefore negative via [place] head CT criteria and CT imaging will not be obtained at this time. Patient evaluated by NEXUS criteria and found to be negative. Patient is also negative by aust[place]ian C-spine criteria. No clinical evidence to suggest increased risk of cervical spine fracture. No indication for further imaging of the cervical spine this point. Patient has multiple abrasions over his face , an old, healing laceration over his left lower lip that is not amenable to repair as it is so superficial and is also almost 24 hours old. The patient did have extensive swelling to the left ear but no drainable hematoma or collection. Patient had no additional injuries beyond facial injuries as documented. At this time will discharge with return precautions and follow-up recommendations. Verbal discharge instructions given a the bedside and opportunity for questions given. Medication warnings reviewed. Patient is in agreement with this plan and has verbalized understanding of return precautions and the need for primary care follow-up in the next 24-72 hours. - Vital Signs Vital signs: Temp Pulse Resp BP Pulse Ox 98.4 F 72 16 109/67 100 04/28/18 20:38 04/28/18 20:38 04/28/18 20:38 04/28/18 20:38 04/28/18 20:38 Discharge - Discharge Clinical Impression: Alcohol abuse Facial trauma Qualifiers: Encounter type: initial encounter Qualified Code(s): S09.93XA - Unspecified injury of face, initial encounter Head trauma Qualifiers: Encounter type: initial encounter Qualified Code(s): S09.90XA - Unspecified injury of head, initial encounter Left ear injury Qualifiers: Encounter type: initial encounter Qualified Code(s): S09.91XA - Unspecified injury of ear, initial encounter Condition: Good Disposition: HOME, SELF-CARE Additional Instructions: You have likely sustained a contusion (bruise) to your head. Symptoms to expect from a concussion include nausea, mild to moderate headache, difficulty concentrating or sleeping, and mild lightheadedness. These symptoms should improve over the next few days to weeks. Return to the emergency department or follow-up with your primary care doctor if your symptoms are not improving over this time. Signs of a more serious head injury include vomiting, severe headache, excessive sleepiness or confusion, and weakness or numbness in your face, arms or legs. Return immediately to the Emergency Department if you experience any of these more concerning symptoms. Rest, avoid strenuous physical or mental activity, and avoid activities that could potentially result in another head injury until all your symptoms from this head injury are completely resolved for at least 2-3 weeks. If you participate in sports, get cleared by your doctor or instructor trainer canine service before returning to play. You may take ibuprofen or acetaminophen over the counter according to label instructions for mild headache or scalp soreness. Referrals: HORTENCIA JOYNER MD [Primary Care Provider] - Follow up as needed
[2018-04-28 20:41] VITALS: BP 109/67
== END 2018-04-28 20:44 | disposition home or self-care (01) ==
LOC: ER 19:11
DX: S09.93XA Unspecified injury of face, initial encounter (principal); S09.90XA Unspecified injury of head, initial encounter; S09.91XA Unspecified injury of ear, initial encounter; H92.02 Otalgia, left ear; F10.10 Alcohol abuse, uncomplicated; W22.8XXA Striking against or struck by other objects, initial encounter
CPT/HCPCS: 99283; J3490

== ENCOUNTER 2019-01-04 00:10 | Emergency (ER) | payer MEDICAID ==
[2019-01-04 00:22] VITALS: BP 115/68
[2019-01-04] MEDS ORDERED: METHOCARBAMOL 500 MG TABLET PO ONE (01:07)
--- NOTE | 2019-01-04 02:36 | RADIOLOGY REPORT (SQ) ---
EXAM DESCRIPTION: XR HIP 2 OR MORE VIEWS COMPLETED DATE/TME: 01/04/2019 01:06 CLINICAL HISTORY: 43 years Male, left hip pain COMPARISON: None. Findings: Bones, joints, and soft tissues of the LEFT XR HIP 2 OR MORE VIEWS appear intact. IMPRESSION: No acute findings.
[2019-01-04] MEDS ORDERED: DEXAMETHASONE SOD PHOS INJ 10 MG/1 ML VIAL IM ONE (03:23)
--- NOTE | 2019-01-04 03:24 | ER Document Report ---
HPI - HPI Time Seen by Provider: 01/04/19 01:06 Context: Patient is a 43-year-old male who presents the emergency department with left hip pain. He states there is a burning, pulling feeling in his left lateral hip. He was trying to pull a 4 tran off a trailer and heard a loud pop in his left leg. He has not taken any medications to help with pain. He has no other past medical history. He does not take any medications. - ROS Notes: REVIEW OF SYSTEMS: CONSTITUTIONAL : Denies recent illness. Denies recent unintentional weight loss. Denies fever, chills, or sweats. EENT: Denies eye, ear, throat, or mouth pain, discharge, or symptoms. Denies nasal or sinus congestion. CARDIOVASCULAR: Denies chest pain. RESPIRATORY: Denies shortness of breath, cough, congestion, difficulty breathing, or wheezing. GASTROINTESTINAL: Denies nausea, vomiting, and diarrhea. Denies abdominal pain. Denies constipation. GENITOURINARY: Denies difficulty urinating, burning, blood in urine, urgency or frequency. MUSCULOSKELETAL: See HPI SKIN: Denies rash, itchiness, or lesions HEMATOLOGIC : Denies easy bruising or bleeding. LYMPHATIC: Denies swollen, painful, enlarged glands. NEUROLOGICAL: Denies no numbness or tingling denies weakness. Denies headache. Denies altered mental status. Denies alteration in speech. PSYCHIATRIC: Denies stress, anxiety, alteration in sleep patterns, or depression. All other systems reviewed and negative. - REPRODUCTIVE Reproductive: DENIES: : Past Medical History - Social History Smoking Status: Current Every Day Smoker Family History: CAD, Hyperlipidemia, Hypertension - Past Medical History Cardiac Medical History: Reports: Hx Hypertension Denies: Hx Heart Attack, Hx Hypercholesterolemia, Hx Peripheral Vascular Disease Pulmonary Medical History: Reports: Hx Asthma Denies: Hx Tuberculosis Endocrine Medical History: Reports: Hx Diabetes Mellitus Type 1, Hx Diabetes Mellitus Type 2 Renal/ Medical History: Reports: Hx Kidney Stones. Denies: Hx Peritoneal Dialysis GI Medical History: Reports: Hx Gastroesophageal Reflux Disease Musculoskeletal Medical History: Reports Hx Arthritis - chronic back pain Skin Medical History: Reports Hx MRSA Psychiatric Medical History: Reports: Hx Anxiety, Hx Attention Deficit Hyperactivity Disorder, Hx Bipolar Disorder, Hx Depression, Hx Schizophrenia Past Surgical History: Reports: Hx Cholecystectomy, Hx Orthopedic Surgery - r pinkie, L leg fx as child - Immunizations Hx Diphtheria, Pertussis, Tetanus Vaccination: Yes - 10/19/12 [facility] Provider Document - CONSTITUTIONAL Notes: PHYSICAL EXAMINATION: GENERAL: Appears well, healthy, well-nourished, no acute distress. HEAD: Normocephalic, atraumatic. EYES: PERRL, conjunctiva normal, all extraocular movements intact, sclera nonicteric ENT: Moist mucous membranes. NECK: Supple, no noticeable swelling, redness, rash. Normal range of motion. LUNGS: Equal breath sounds bilaterally and clear to auscultation. No wheezes rales or rhonchi. CARDIOVASCULAR: S1-S2, regular rate, regular rhythm. Radial pulses 2+, normal. ABDOMEN: Normoactive bowel sounds. Soft, nontender, no guarding, no rebound tenderness, and no masses palpated. EXTREMITIES: Normal strength and range of motion, no pitting or edema. No cyanosis. Tenderness noted to left lateral hip. NEUROLOGICAL: Moves all extremities upon command. Strength 5/5 in all extremities. PSYCH: Normal mood, normal affect. SKIN: Warm, dry. No rash, lesions, ulcerations noted. Normal skin turgor. - INFECTION CONTROL TRAVEL OUTSIDE OF THE [place] IN LAST 30 DAYS: No Course - Re-evaluation Re-evalutation: 01/04/19 03:42 X-ray is negative at this time. He received a dose of Decadron here in the emergency department. He will follow-up with his primary care provider. Crutches were given to the patient. Follow-up precautions were given. Verbal discharge instructions were given to the patient. They verbalized understanding. They are stable for discharge. - Vital Signs Vital signs: Temp Pulse Resp BP Pulse Ox 97.9 F 65 24 H 115/68 98 01/04/19 00:21 01/04/19 00:21 01/04/19 00:21 01/04/19 00:21 01/04/19 00:21 Discharge - Discharge Clinical Impression: Left hip pain Condition: Stable Disposition: HOME, SELF-CARE Additional Instructions: You were seen today in the emergency department for left hip pain. Your x-ray is normal. Please follow-up with orthopedics in regards to this visit. You received a dose of steroids here in the emergency department. Please follow-up with your primary care provider in regards to this visit. Please rest the area and use your crutches, apply ice. Since you are able to take Aleve, please take Aleve or the generic brand to help with the pain. Referrals: HORTENCIA JOYNER MD [Primary Care Provider] - Follow up in 3-5 days ANTOINETTE FRAZIER MD [ACTIVE STAFF] - Follow up in 1 week
== END 2019-01-04 03:44 | disposition home or self-care (01) ==
LOC: ER 00:10
DX: M25.552 Pain in left hip (principal); F17.200 Nicotine dependence, unspecified, uncomplicated; I10 Essential (primary) hypertension; E11.9 Type 2 diabetes mellitus without complications; Z87.442 Personal history of urinary calculi; Z86.14 Personal history of Methicillin resistant Staphylococcus aureus infection; Z90.49 Acquired absence of other specified parts of digestive tract
CPT/HCPCS: 99283; 96372; 73502; J3490; J1100

== ENCOUNTER 2019-01-09 04:58 | Emergency (ER) | payer MEDICAID ==
--- NOTE | 2019-01-09 09:41 | ER Document Report ---
Entered by KAVITA CHANG SCRIBE 01/09/19 0910 Acting as scribe for:ILEANA MELVIN MD ED General - General Chief Complaint: Other Stated Complaint: Abdominal pain Time Seen by Provider: 01/09/19 08:34 Primary Care Provider: HORTENCIA JOYNER MD [Primary Care Provider] - Follow up as needed Notes: Patient is a 43-year-old male presenting to the emergency department complaining of overexertion with associated abdominal pain. Patient states that he was working on his car yesterday in the sun and that he began experiencing chills, nausea, felt over exerted. Patient states that he did drink a lot of water. Patient states that he has not been urinating frequently, and that it has been "real yellow". Patient states that he was diagnosed with schizophrenia and ADHD, and that he does not take medicine for either. TRAVEL OUTSIDE OF THE [place] IN LAST 30 DAYS: No - Related Data Allergies/Adverse Reactions: Penicillins Allergy (Severe, Verified 04/28/18 19:36) ketorolac tromethamine [From Toradol] Allergy (Verified 04/28/18 19:36) acetaminophen [From Tylenol] Adverse Reaction (Mild, Verified 04/28/18 19:36) Nausea codeine [Codeine] Adverse Reaction (Verified 04/28/18 19:36) Nausea tramadol [Tramadol] Adverse Reaction (Verified 04/28/18 19:36) Nausea tramadol HCl [From Ultram] Adverse Reaction (Verified 04/28/18 19:36) Nausea Past Medical History - General Information source: Patient - Social History Smoking Status: Never Smoker Chew tobacco use (# tins/day): No Frequency of alcohol use: None Drug Abuse: None Family History: CAD, Hyperlipidemia, Hypertension Patient has suicidal ideation: No Patient has homicidal ideation: No - Past Medical History Cardiac Medical History: Reports: Hx Hypertension Pulmonary Medical History: Reports: Hx Asthma Endocrine Medical History: Reports: Hx Diabetes Mellitus Type 1, Hx Diabetes Mellitus Type 2 Renal/ Medical History: Reports: Hx Kidney Stones GI Medical History: Reports: Hx Gastroesophageal Reflux Disease Musculoskeletal Medical History: Reports Hx Arthritis - chronic back pain Skin Medical History: Reports Hx MRSA Psychiatric Medical History: Reports: Hx Anxiety, Hx Attention Deficit Hyperactivity Disorder, Hx Bipolar Disorder, Hx Depression, Hx Schizophrenia Past Surgical History: Reports: Hx Cholecystectomy, Hx Orthopedic Surgery - Reese camarena leg fx as child - Immunizations Hx Diphtheria, Pertussis, Tetanus Vaccination: Yes - 10/19/12 Review of Systems - Review of Systems Constitutional: No symptoms reported EENT: No symptoms reported Cardiovascular: No symptoms reported Respiratory: No symptoms reported Gastrointestinal: See HPI, Abdominal pain, Nausea Genitourinary: No symptoms reported Male Genitourinary: No symptoms reported Musculoskeletal: No symptoms reported Skin: No symptoms reported Hematologic/Lymphatic: No symptoms reported Neurological/Psychological: No symptoms reported -: Yes All other systems reviewed and negative Physical Exam - Vital signs Vitals: Temp Pulse Resp BP Pulse Ox 97.8 F 65 22 H 117/78 97 01/09/19 05:06 01/09/19 05:06 01/09/19 05:06 01/09/19 05:06 01/09/19 05:06 - Notes Notes: Physical Exam: General: Alert, appears well, dry mouth, skin dirty. HEENT: Normocephalic. Atraumatic. PERRL. Extraocular movements intact. Oropharynx clear. Neck: Supple. Non-tender. Respiratory: No respiratory distress. Clear and equal breath sounds bilaterally. Cardiovascular: Regular rate and rhythm. Abdominal: Lower abdomen tenderness to palpation. No distension. Normal Bowel Sounds. Back: Non-tender. No deformity or step off. Extremities: Moves all four extremities. Upper extremities: Normal inspection. Normal ROM. Lower extremities: Normal inspection. No edema. Normal ROM. Neurological: Normal cognition. AAOx4. Normal speech. Psychological: Normal affect. Normal Mood. Skin: Warm. Dry. Normal color. Course - Re-evaluation Re-evalutation: 01/09/19 10:56 Patient's lab work is unremarkable other than a urine that is slightly concentrated. At this time the patient is sound asleep and difficult to arouse. He has received 2 L of normal saline IV. - Vital Signs Vital signs: Temp Pulse Resp BP Pulse Ox 97.8 F 65 22 H 117/78 97 01/09/19 05:06 01/09/19 05:06 01/09/19 05:06 01/09/19 05:06 01/09/19 05:06 - Laboratory Result Diagrams: 01/09/19 09:49 01/09/19 09:49 Laboratory results interpreted by me: 01/09/19 01/09/19 09:35 09:49 Potassium 3.5 L Total Bilirubin 1.9 H Total Protein 6.0 L Urine Glucose (UA) 150 H Discharge - Discharge Clinical Impression: Dehydration, Weakness, Nausea Condition: Stable Disposition: HOME, SELF-CARE Additional Instructions: Viral Syndrome The physician has diagnosed a viral infection. Viruses not only cause "colds," but can cause many different symptoms including generalized aching, fever, headache, cough, diarrhea, nausea, vomiting, and fatigue. The treatment, for the most part, is simply relief of symptoms. This means that antibiotics are usually not given. Rest, fluids, pain medications and, occasionally, medication for the specific symptoms that are most bothersome will be prescribed. Use good handwashing to avoid passing the virus to others. Shared toys should be cleaned with disinfectant. Clean the toilets, sinks, and counter surfaces in bathrooms. Launder clothing in hot water. Contact the physician if you develop any new or unusual symptoms such as severe headache, stiff neck, high fever, chest pain, productive cough, or shortness of breath. You should be rechecked if you don't see marked improvement within seven to 10 days. Your symptoms are most consistent with a viral syndrome. You have nausea, achiness, cramping with lower abdominal pains and you reported chills. Your lab work does not suggest a significant dehydration. You should get plenty of sleep and rest, and drink plenty of fluids. Follow-up with your primary care provider if not improving. RETURN TO THE EMERGENCY ROOM IF ANY NEW OR WORSENING SYMPTOMS. Referrals: HORTENCIA JOYNER MD [Primary Care Provider] - Follow up as needed Scribe Attestation: 01/09/19 11:01 I personally performed the services described in the documentation, reviewed and edited the documentation which was dictated to the scribe in my presence, and it accurately records my words and actions. I personally performed the services described in the documentation, reviewed and edited the documentation which was dictated to the scribe in my presence, and it accurately records my words and actions.
[2019-01-09] MEDS: NORMAL SALINE 1000 ML 1,000 ML IV PRN ×2 (09:48→11:09)
[2019-01-09 10:15] LABS: ABSOLUTE BASOPHILS # (AUTO) 0.1 10^3/uL (0.0-0.2); ABSOLUTE EOSINOPHILS # (AUTO) 0.1 10^3/uL (0.0-0.6); ABSOLUTE LYMPHOCYTES (AUTO) 2.9 10^3/uL (0.5-4.7); ABSOLUTE MONOCYTES (AUTO) 0.5 10^3/uL (0.1-1.4); ABSOLUTE NEUT (AUTO) 4.4 10^3/uL (1.7-8.2); BASOPHILS % (AUTO) 0.9 % (0-2); EOSINOPHILS % (AUTO) 1.4 % (0-6); HEMATOCRIT 39.7 % (37.9-51.0); HEMOGLOBIN 14.1 g/dL (13.5-17.0); LYMPHOCYTES % (AUTO) 36.4 % (13-45); MEAN CORPUSCULAR HEMOGLOBIN 29.4 pg (27.0-33.4); MEAN CORPUSCULAR HGB CONC 35.4 g/dL (32.0-36.0); MEAN CORPUSCULAR VOLUME 83 fl (80-97); MONOCYTES % (AUTO) 5.7 % (3-13); PLATELET COUNT 180 10^3/uL (150-450); RED BLOOD COUNT 4.78 10^6/uL (4.35-5.55); RED CELL DISTRIBUTION WIDTH 13.3 % (11.5-14.0); SEGMENTED NEUTROPHILS % (AUTO) 55.6 % (42-78); TOTAL CELLS COUNTED % (AUTO) 100 %
[2019-01-09 10:17] LABS: AMORPHOUS SEDIMENT,URINE 1+ /HPF; APPEARANCE,URINE TURBID; BILIRUBIN,URINE NEGATIVE (NEGATIVE); COLOR,URINE YELLOW; GLUCOSE, URINE 150 mg/dL (NEGATIVE); KETONES,URINE NEGATIVE (NEGATIVE); LEUKOCYTE ESTERASE,URINE NEGATIVE (NEGATIVE); NITRITE,URINE NEGATIVE (NEGATIVE); PROTEIN,URINE NEGATIVE (NEGATIVE); URINE SPECIFIC GRAVITY 1.028; UROBILINOGEN,URINE NEGATIVE mg/dL (<2.0)
[2019-01-09 10:45] LABS: ALANINE AMINOTRANSFERASE 29 U/L (21-72); ALBUMIN 3.8 g/dL (3.5-5.0); ALKALINE PHOSPHATASE 41 U/L (38-126); ANION GAP 8 (5-19); ASPARTATE AMINO TRANSFERASE 20 U/L (17-59); BILIRUBIN,DIRECT 0.1 mg/dL (0.0-0.4); BILIRUBIN,TOTAL 1.9 mg/dL (0.2-1.3); BLOOD UREA NITROGEN 11 mg/dL (7-20); CALCIUM 8.9 mg/dL (8.4-10.2); CARBON DIOXIDE 29 mmol/L (22-30); CHLORIDE 103 mmol/L (98-107); CREATINE KINASE 125 U/L (55-170); GLUCOSE 102 mg/dL (75-110); POTASSIUM 3.5 mmol/L (3.6-5.0); SODIUM 140.1 mmol/L (137-145)
[2019-01-09 12:48] VITALS: BP 129/73
== END 2019-01-09 12:48 | disposition home or self-care (01) ==
LOC: ER 04:58
DX: E86.0 Dehydration (principal); R53.1 Weakness; R11.0 Nausea; R10.9 Unspecified abdominal pain; R10.819 Abdominal tenderness, unspecified site; I10 Essential (primary) hypertension; J45.909 Unspecified asthma, uncomplicated; E11.9 Type 2 diabetes mellitus without complications; Z88.0 Allergy status to penicillin; Z88.8 Allergy status to other drugs, medicaments and biological substances; Z90.49 Acquired absence of other specified parts of digestive tract; Z87.19 Personal history of other diseases of the digestive system
CPT/HCPCS: 99284; 36415; 82550; 83735; 85025; 80053; 81001; J7030

== ENCOUNTER 2019-01-14 02:33 | Emergency (ER) | payer MEDICAID ==
--- NOTE | 2019-01-14 02:54 | ER Document Report ---
Addendum entered and electronically signed by KAVITA SCOTT MD 01/14/19 12:16: Course - Re-evaluation Re-evalutation: 01/14/19 12:15 Interviewed patient and he still reports suicidal ideation, threatening to use his roommates gun to kill himself. The patient however earlier in the day he seemed agreeable to outpatient management with Haldol and Cogentin. Will initiate IVC proceedings given this change and the concern for safety. I counseled the patient at length about the need to avoid cocaine and illegal drugs. - Vital Signs Vital signs: Temp Pulse Resp BP Pulse Ox 97.6 F 57 L 18 97/49 L 97 01/14/19 07:18 01/14/19 07:18 01/14/19 07:18 01/14/19 07:18 01/14/19 07:18 - Laboratory Result Diagrams: 01/14/19 03:25 01/14/19 03:25 Laboratory results interpreted by me: 01/14/19 01/14/19 03:25 05:00 Glucose 127 H Urine Urobilinogen 2.0 H Salicylates < 1.0 L Acetaminophen < 10 L Addendum entered and electronically signed by CECI TEMPLETON LPC 01/14/19 11:00: Discharge - Discharge Clinical Impression: Suicidal ideation, Polysubstance (excluding opioids) dependence, Cannabis abuse, Cocaine abuse, Depression Schizophrenia Qualifiers: Schizophrenia type: unspecified Qualified Code(s): F20.9 - Schizophrenia, unspecified Condition: Stable Disposition: HOME, SELF-CARE Additional Instructions: You have been evaluated by both medical and behavioral health providers while in the emergency department. You have been cleared from both acute medical and psychiatric services. It is felt your symptoms are a result of noncompliance with medications for the pat year, use of drugs and psychosocial stress. You are being provided prescriptions to help you abstain from substances. Schizophrenia (you reported history of this) is difficult to diagnose when there is regular use of multiple substances since these can mimic symptoms. You are recommended to follow up with outpatient dual diagnosis mental health and substance abuse services for ongoing care, treatment and support. You have been provided with resources for this. DEPRESSION: Your evaluation reveals that you have mental depression. While symptoms may be vague, they often include disturbance of sleep, fatigue, loss of appetite, and general loss of interest in life. While depression may be a side effect of drugs, or a reaction to a major change in your life, many cases have no known cause. If depression is acute, and related to a major loss in your life, you can expect it to clear completely with time. If you have been depressed a long time, are prone to repeated bouts of depression or low mood, or have been thinking of suicide, get help. Depression can be treated with anti-depressant medication and counselling. Long-term depression will often take a few weeks to clear, even with appropriate medication. Follow-up care is important. SUICIDAL IDEATION: Suicidal ideation is a common medical term for thoughts about suicide, which may be as detailed as a formulated plan, without the suicidal act itself. Although most people who undergo suicidal ideation do not commit suicide, some go on to make suicide attempts. The range of suicidal ideation varies greatly from fleeting to detailed planning, role playing, and unsuccessful attempts. While thoughts about suicide are common, most people do not carry out serious actions to commit suicide. Based upon your evaluation and discussion with you, we do not believe you are currently at risk to act upon your thoughts of suicide. You have agreed to return to the Emergency Department, at any time, if you feel inclined to act upon your suicidal thoughts. COCAINE ABUSE: Cocaine causes many dangerous medical problems. Problems can occur even with "usual" amounts. Cocaine affects judgement, creating a sense of invulnerability. Cocaine users often make bad decisions that seem "great" at the time. Most cocaine users eventually will be hurt by bad job performance, damaged personal relations, crime, and unsafe sexual practices. Toxic effects of cocaine can include seizures, hallucinations, delusions, h igh blood pressure, heart damage, or sudden . There's always the risk of a "bad batch." But heart attacks, brain hemorrhages, or cardiac arrest can occur unpredictably even with "normal" use. Injection of cocaine is risky for abscesses, endocarditis (heart infection), pneumonia, and AIDS. Withdrawal from cocaine often causes anxiety and drug cravings. Some users become paranoid and psychotic. Many treatment programs are available, but you must make the decision to quit. Medication can be prescribed to control the symptoms of cocaine toxicity (beta blockers or benzodiazepines). Withdrawal symptoms may require tranquilizers. CANNABIS ABUSE: Also referred to as weed, marijuana and other names. It alters the mind, impairs cognition and inhibits individuals who utilize it. It can interfere with other medication effectiveness. In individuals who have a mental health diagnosis symptoms (psychosis, paranoia, anxiety and others) can be caused and/or exacerba neelam. FOLLOW-UP CARE: You are being provided prescriptions for Haldol 5MG twice a day for psychosis /mood and Cogentin 1MG daily because it is utilized with medications like Haldol to curb possible tremor side effects. You will have a week prescription to assist in abstaining from drugs. You have been instructed to follow up as a walk in at [facility] immediately upon discharge from the emergency department for dual diagnosis mental health and substance abuse treatment. You have also been provided the [facility] Crisis number for crisis/talk therapy/linkage to other supports and services. If you experience worsening or a significant change in your symptoms, notify the physician immediately, utilize mobile crisis or return to the Emergency Department at any time for re-evaluation. Referrals: HORTENCIA JOYNER MD [Primary Care Provider] - Follow up as needed [facility] Crisis Team [Outside] - Follow up as needed [facility] [Outside] - 01/14/19 12:00 pm Original Note: ED General - General Chief Complaint: Psych Problem Stated Complaint: PSYCH ISSUES Time Seen by Provider: 01/14/19 02:53 Primary Care Provider: HORTENCIA JOYNER MD [Primary Care Provider] - Follow up as needed Notes: Patient is a 43 year old male that presents to the emergency department for chief complaint of suicidal ideations. Patient states he has a history of bipolar disorder and schizophrenia, is been off medication for about 2 years now, he has been using drugs including cocaine, and states that he is got to a point where he wants to get better and back on medication, he states that he has been suicidal, does not have a specific plan at this time, but has been thinking about it more more and is been getting worse more recently he has been hearing voices, on a daily basis and constantly, he denies any visual hallucinations. Denies any alcohol use. He is currently living with a friend, but he wants to get his life back on track. He has a history of being in inpatient mental hospitals in the past, and that is what he thinks he needs to get better. Past Medical History: Schizophrenia, bipolar, ADHD Past Surgical History: Cholecystectomy Social History: Admits to chewing tobacco, denies alcohol use, but admits to cocaine use, denies other illicit drug use. Family History: Reviewed and noncontributory for presenting illness Allergies: Reviewed, see documented allergy list. REVIEW OF SYSTEMS: Other than noted above, the 12 point review of systems was reviewed with the patient and were negative, all pertinent findings are included in the HPI. PHYSICAL EXAMINATION: Vital signs reviewed, nursing noted reviewed. GENERAL: Patient is tearful on exam, but in no immediate distress HEAD: Atraumatic, normocephalic. EYES: Eyes appear normal, extraocular movements intact, sclera anicteric, conjunctiva are normal. ENT: nares patent, oropharynx clear without exudates. Moist mucous membranes. NECK: Normal range of motion, supple without lymphadenopathy LUNGS: Breath sounds clear to auscultation bilaterally and equal. No wheezes rales or rhonchi. HEART: Regular rate and rhythm without murmurs ABDOMEN: Soft, nontender, normoactive bowel sounds. No rebound, guarding, or rigidity. No masses appreciated. EXTREMITIES: Nontender, good range of motion, no pitting or edema. NEUROLOGICAL: No focal neurological deficits. Moves all extremities spontaneously Motor and sensory grossly intact on exam. PSYCH: Poor eye contact, tearful, poor insight and judgment on my exam. SKIN: Warm, Dry, normal turgor, no rashes or lesions noted on exposed skin TRAVEL OUTSIDE OF THE [place] IN LAST 30 DAYS: No - Related Data Allergies/Adverse Reactions: Penicillins Allergy (Severe, Verified 04/28/18 19:36) ketorolac tromethamine [From Toradol] Allergy (Verified 04/28/18 19:36) acetaminophen [From Tylenol] Adverse Reaction (Mild, Verified 04/28/18 19:36) Nausea codeine [Codeine] Adverse Reaction (Verified 04/28/18 19:36) Nausea tramadol [Tramadol] Adverse Reaction (Verified 04/28/18 19:36) Nausea tramadol HCl [From Ultram] Adverse Reaction (Verified 04/28/18 19:36) Nausea Past Medical History - Social History Smoking Status: Current Every Day Smoker Family History: CAD, Hyperlipidemia, Hypertension - Past Medical History Cardiac Medical History: Reports: Hx Hypertension Denies: Hx Heart Attack, Hx Hypercholesterolemia, Hx Peripheral Vascular Disease Pulmonary Medical History: Reports: Hx Asthma Denies: Hx Tuberculosis Endocrine Medical History: Reports: Hx Diabetes Mellitus Type 1, Hx Diabetes Mellitus Type 2 Renal/ Medical History: Reports: Hx Kidney Stones. Denies: Hx Peritoneal Dialysis GI Medical History: Reports: Hx Gastroesophageal Reflux Disease Musculoskeletal Medical History: Reports Hx Arthritis - chronic back pain Skin Medical History: Reports Hx MRSA Psychiatric Medical History: Reports: Hx Anxiety, Hx Attention Deficit Hyper activity Disorder, Hx Bipolar Disorder, Hx Depression, Hx Schizophrenia Past Surgical History: Reports: Hx Cholecystectomy, Hx Orthopedic Surgery - r pinkie, L leg fx as child - Immunizations Hx Diphtheria, Pertussis, Tetanus Vaccination: Yes - 10/19/12 Physical Exam - Vital signs Vitals: Temp Pulse Resp BP Pulse Ox 98.1 F 89 18 156/92 H 97 01/14/19 02:37 01/14/19 02:37 01/14/19 02:37 01/14/19 02:37 01/14/19 02:37 Course - Re-evaluation Re-evalutation: Patient seen and examined, vital signs reviewed. Medical screening testing was ordered including bloodwork, EKG, and toxicology. Results of testing were reviewed. Testing demonstrated unremarkable blood work, patient has been stable from a hemodynamic standpoint. At this point I feel that the patient is medically cleared and can be further evaluated from a psychiatric standpoint for final disposition from the emergency department. Patient started on Zyprexa 5 mg this evening to see if it will help with some of his symptoms. Patient updated on plan of care. Laboratory 01/14/19 01/14/19 03:25 03:25 WBC 10.5 RBC 4.92 Hgb 14.4 Hct 41.1 MCV 84 MCH 29.2 MCHC 34.9 RDW 13.2 Plt Count 193 Seg Neutrophils % 74.4 Lymphocytes % 19.5 Monocytes % 4.7 Eosinophils % 0.4 Basophils % 1.0 Absolute Neutrophils 7.8 Absolute Lymphocytes 2.0 Absolute Monocytes 0.5 Absolute Eosinophils 0.0 Absolute Basophils 0.1 Sodium 142.4 Potassium 3.7 Chloride 107 Carbon Dioxide 27 Anion Gap 8 BUN 13 Creatinine 0.75 Est GFR ( Amer) > 60 Est GFR (Non-Af Amer) > 60 Glucose 127 H Calcium 8.7 Total Bilirubin 0.8 Direct Bilirubin 0.3 Neonat Total Bilirubin Not Reportable Neonat Direct Bilirubin Not Reportable Neonat Indirect Bili Not Reportable AST 20 ALT 22 Alkaline Phosphatase 40 Total Protein 6.3 Albumin 3.9 Salicylates < 1.0 L Acetaminophen < 10 L Serum Alcohol < 10 - Vital Signs Vital signs: Temp Pulse Resp BP Pulse Ox 98.1 F 89 18 156/92 H 97 01/14/19 02:37 01/14/19 02:37 01/14/19 02:37 01/14/19 02:37 01/14/19 02:37 - Laboratory Result Diagrams: 01/14/19 03:25 01/14/19 03:25 Laboratory results interpreted by me: 01/14/19 03:25 Glucose 127 H Salicylates < 1.0 L Acetaminophen < 10 L - EKG Interpretation by Me Additional EKG results interpreted by me: EKG demonstrates sinus rhythm with a ventricular of 77 bpm, normal axis, normal intervals, no evidence of acute ischemia in this EKG, compared to prior EKG from 12/17/2016, without significant change. Discharge - Discharge Clinical Impression: Suicidal ideation Schizophrenia Qualifiers: Schizophrenia type: unspecified Qualified Code(s): F20.9 - Schizophrenia, unspecified Condition: Stable Disposition: PSYCH HOSP/UNIT Referrals: HORTENCIA JOYNER MD [Primary Care Provider] - Follow up as needed
[2019-01-14 03:35] LABS: ABSOLUTE BASOPHILS # (AUTO) 0.1 10^3/uL (0.0-0.2); ABSOLUTE MONOCYTES (AUTO) 0.5 10^3/uL (0.1-1.4); ABSOLUTE NEUT (AUTO) 7.8 10^3/uL (1.7-8.2); EOSINOPHILS % (AUTO) 0.4 % (0-6); HEMATOCRIT 41.1 % (37.9-51.0); HEMOGLOBIN 14.4 g/dL (13.5-17.0); LYMPHOCYTES % (AUTO) 19.5 % (13-45); MEAN CORPUSCULAR HEMOGLOBIN 29.2 pg (27.0-33.4); MEAN CORPUSCULAR HGB CONC 34.9 g/dL (32.0-36.0); MEAN CORPUSCULAR VOLUME 84 fl (80-97); MONOCYTES % (AUTO) 4.7 % (3-13); PLATELET COUNT 193 10^3/uL (150-450); RED BLOOD COUNT 4.92 10^6/uL (4.35-5.55); RED CELL DISTRIBUTION WIDTH 13.2 % (11.5-14.0); SEGMENTED NEUTROPHILS % (AUTO) 74.4 % (42-78); TOTAL CELLS COUNTED % (AUTO) 100 %; WHITE BLOOD COUNT 10.5 10^3/uL (4.0-10.5)
[2019-01-14] MEDS ORDERED: OLANZAPINE 5 MG TABLET PO ONE (03:44)
[2019-01-14 03:58] LABS: ALANINE AMINOTRANSFERASE 22 U/L (21-72); ALBUMIN 3.9 g/dL (3.5-5.0); ALKALINE PHOSPHATASE 40 U/L (38-126); ANION GAP 8 (5-19); ASPARTATE AMINO TRANSFERASE 20 U/L (17-59); BILIRUBIN,DIRECT 0.3 mg/dL (0.0-0.4); BILIRUBIN,TOTAL 0.8 mg/dL (0.2-1.3); BLOOD UREA NITROGEN 13 mg/dL (7-20); CALCIUM 8.7 mg/dL (8.4-10.2); CARBON DIOXIDE 27 mmol/L (22-30); CHLORIDE 107 mmol/L (98-107); GLUCOSE 127 mg/dL (75-110); POTASSIUM 3.7 mmol/L (3.6-5.0); SODIUM 142.4 mmol/L (137-145); TOTAL PROTEIN 6.3 g/dL (6.3-8.2)
[2019-01-14 03:59] LABS: ACETAMINOPHEN < 10 ug/mL (10-30); ALCOHOL < 10 mg/dL (NONE DETECTED); SALICYLATE < 1.0 mg/dL (2.0-20.0)
[2019-01-14 05:20] LABS: APPEARANCE,URINE SLIGHTLY-CLOUDY; BILIRUBIN,URINE NEGATIVE (NEGATIVE); COLOR,URINE YELLOW; GLUCOSE, URINE NEGATIVE (NEGATIVE); KETONES,URINE NEGATIVE (NEGATIVE); LEUKOCYTE ESTERASE,URINE NEGATIVE (NEGATIVE); NITRITE,URINE NEGATIVE (NEGATIVE); PROTEIN,URINE NEGATIVE (NEGATIVE); URINE SPECIFIC GRAVITY 1.026
[2019-01-14 05:43] LABS: URINE AMPHETAMINES SCREEN NEGATIVE; URINE BARBITURATES SCREEN NEGATIVE; URINE BENZODIAZEPINES SCREEN NEGATIVE; URINE COCAINE SCREEN UNCONFIRMED POSITIVE; URINE MARIJUANA (THC) SCREEN UNCONFIRMED POSITIVE; URINE METHADONE SCREEN NEGATIVE; URINE PHENCYCLIDINE SCREEN NEGATIVE
--- NOTE | 2019-01-14 11:08 | PSYCHOLOGICAL NOTE ---
Psych Note - Psych Note Date seen by psych provider: 01/14/19 Psych Note: Presenting Problem: Increased Depression and SI, Cocaine Use via self medications, AH (daily), off medications for a year or longer, Hx of Bipolar/Schizophrenia/ADHD. He reported he wanted to get back on medications, get better, has been staying with a friend but wants to get his life back on track. He reported a history of inpatient hospitalization and told medical staff that's what he thinks he needs to get better. He reported his last medication regimen was Invega, Adderall and Xanax via prescribed in [place]. Triggers were that his left him with children a couple years ago. He stated this is the reason he stopped going to outpatient provider. UDS positive for Cocaine and Cannabis. he admitted to regular use of both and that he needs help with it. He reported voices that tell him to do things, specifically tell him he is worthless. His speech was mumbled and slurred. [facility] saw patient 2 times in 2016 for suicidal ideation and once in 2014 for SIB via cut right wrist and required stitched (not to kill self). Today he endorsed SI, did not give plan or intent when asked. He admitted to SA problem and wanting to get back on track which meant getting back on medication. Diagnosis: Polysubstance Abuse Cocaine Cannabis Depression Psychosocial stress R/O Bipolar Medication recommendations made by the psychiatric medical provider, Dr. Roby weiss MD., includes: Add Haldol 5MG twice a day for psychosis/mood (for abstaining from polysubstance use) Add Cogentin 1MG daily to curb tremor side effects often associated with antipsy chotic medications Impression/Plan: Patient is cleared from acute psychiatric services. He endorsed passive SI with no identified plan or means. He denied HI. No observed psychosis that seemed to interfere with ability to express self and wants/needs. He had time to sober up from multiple substances. UDS positive for Cocaine and Cannabis. Patient admitted to regular use. He acknowledged no medications in the last year. He reported last regimen of Invega, Adderall and Xanax. He was provided a week of prescriptions to aid in abstaining from substances. He was recommended to follow up with [facility] as a walk in today immediately upon discharge from the ED for dual diagnosis mental health and substance abuse treatment. Patient seen by [facility] once in 2015 and 3 times in 2017 for similar etiology. He was provided the outpatient MH resource sheet which documented the [place] walk in, as well as highlighted IFS MCM for crisis/talk therapy/linkage to other services and supports. Consulted with Dr. Blood regarding the management and care of patient. ED Physician in agreement with recommendations. At discharge patient continued to express SI saying "I just don't care, I'm going to kill myself." Had to be questioned but he said he would shoot himself with a gun he reported having access to at the shack he lives in belongs to roommate. Attending ED Physician not okay with discharge as a result. Requested 24 Hour IVC Petition. ED Physician to schedule medications that were to be provided as prescription. He will be held overnight with plan to discharge in AM after having 3 doses of Haldol.
[2019-01-14] MEDS ORDERED: LORAZEPAM 1 MG TABLET PO ONE (12:00)
[2019-01-14] MEDS ORDERED: HALOPERIDOL 5 MG TABLET PO ONE (12:02)
[2019-01-14] MEDS: BENZTROPINE MESYLATE 1 MG TABLET PO SCH (12:17)
--- NOTE | 2019-01-14 14:56 | EKG REPORT ---
SEVERITY:- NORMAL ECG - SINUS RHYTHM : Confirmed by: Lexie Pompa 14-Jan-2019 14:55:33
[2019-01-14] MEDS: HALOPERIDOL 5 MG TABLET PO SCH (17:11)
[2019-01-15 08:17] VITALS: BP 108/69
[2019-01-15] MEDS: BENZTROPINE MESYLATE 1 MG TABLET PO SCH (09:07)
[2019-01-15] MEDS: HALOPERIDOL 5 MG TABLET PO SCH (09:07)
--- NOTE | 2019-01-15 12:01 | PSYCHOLOGICAL NOTE ---
Psych Note - Psych Note Date seen by psych provider: 01/15/19 Time seen by psych provider: 08:00 - 0815 Psych Note: Presenting Problem: Increased Depression and SI, Cocaine Use via self medications, AH (daily), off medications for a year or longer, Hx of Bipolar/Schizophrenia/ADHD. Patient was evaluated by the behavioral health team and cleared from acute psychiatric services yesterday. During evaluation patient indicated he had passive suicidal ideation i.e. no plans means or intent at multiple times. It was not until discharge the patient reported a plan to shoot himself. Patient states he is interested in residential substance abuse treatment. When asked if he is somewhere to live he reports he does however "is not the best place in the world." Clinician notes patient eye contact is poor. Diagnosis: Polysubstance Abuse Cocaine Cannabis Depression; probable associated to long-term substance abuse Psychosocial stress R/O Bipolar Medication recommendations made by the psychiatric medical provider, Dr. Leonel MD., includes: Add Haldol 5MG twice a day for psychosis/mood (for abstaining from polysubstance use) Add Cogentin 1MG daily to curb tremor side effects often associated with antipsychotic medications Impression/Plan: Patient is cleared from acute psychiatric services. He endorsed passive SI with no identified plan or means however then upon attempted discharge he reported a plan to shoot himself. Patient is now sober from multiple substances. UDS positive for Cocaine and Cannabis. Patient admitted to regular use. He acknowledged no medications in the last year. He reported last regimen of Invega, Adderall and Xanax. He was provided a week of prescriptions to aid in abstaining from substances. Patient seen by [facility] once in 2014 and 3 times in 2017 for similar etiology. There is concern that the patient is having housing difficulties so was provided the local Street sheet that lists economic resources for community. He was provided the outpatient MH resource sheet which IFS MCM for crisis/talk therapy/linkage to other services and supports. It is recommended the patient follow-up with [facility] for continued assistance in substance abuse treatment, placement in residential treatment. Consulted with Dr. Blood regarding the management and care of patient. ED Physician in agreement with recommendations.
--- NOTE | 2019-01-15 13:27 | ER Document Report ---
Doctor's Note Notes: 01/15/19 13:25 Rounds: Chart reviewed and patient interviewed. Patient is here for suicidal thoughts and substance abuse. Uses cocaine. Patient says he is going to kill himself. Vital signs are all normal. Lab studies were normal except for positive marijuana and positive cocaine and drug testing. Patient appears to be medically stable for transfer or discharge. At this time, mental health is planning on discharging the patient for outpatient follow-up. Reyna Poe MD
== END 2019-01-15 13:49 | disposition home or self-care (01) ==
LOC: ER 02:33
DX: F20.9 Schizophrenia, unspecified (principal); R45.851 Suicidal ideations; F12.10 Cannabis abuse, uncomplicated; F14.10 Cocaine abuse, uncomplicated; F17.200 Nicotine dependence, unspecified, uncomplicated; F32.9 Major depressive disorder, single episode, unspecified; I10 Essential (primary) hypertension; J45.909 Unspecified asthma, uncomplicated; E11.9 Type 2 diabetes mellitus without complications; Z88.0 Allergy status to penicillin; Z88.8 Allergy status to other drugs, medicaments and biological substances
CPT/HCPCS: 93005; 99285; 36415; 80307 ×4; 85025; 80053; 81001; 93010; J3490 ×5

== ENCOUNTER 2019-01-19 23:04 | Emergency (ER) | payer MEDICAID ==
[2019-01-20] MEDS ORDERED: HYDROCODONE/ACETAMINOPHEN 5-325 MG TABLET PO ONE (02:10)
--- NOTE | 2019-01-20 02:19 | ER Document Report ---
ED Extremity Problem, Lower - General Chief Complaint: Swelling of Lower Extremity Stated Complaint: LEG PAIN Time Seen by Provider: 01/20/19 02:03 Primary Care Provider: ANTOINETTE FRAZIER MD [ACTIVE STAFF] - Follow up as needed Notes: Patient is a 43-year-old male that comes to emergency department for chief complaint of right leg pain and swelling. He states that just over a day ago he was chasing after a dog and he was struck by another person who was chasing the dog, they collided and he was hit on the side of the right leg/ankle. He states he has an abrasion and bruise over the area. He states that area has increase in swelling and is now swelling up his leg slightly. He states he is worried it is getting infected because he has had cellulitis in the past. He denies fever/chills, nausea/vomiting, he denies any other complaints. Past medical history of bipolar, schizophrenia, cholecystectomy. TRAVEL OUTSIDE OF THE [place] IN LAST 30 DAYS: No - Related Data Allergies/Adverse Reactions: Penicillins Allergy (Severe, Verified 04/28/18 19:36) ketorolac tromethamine [From Toradol] Allergy (Verified 04/28/18 19:36) acetaminophen [From Tylenol] Adverse Reaction (Mild, Verified 04/28/18 19:36) Nausea codeine [Codeine] Adverse Reaction (Verified 04/28/18 19:36) Nausea tramadol [Tramadol] Adverse Reaction (Verified 04/28/18 19:36) Nausea tramadol HCl [From Ultram] Adverse Reaction (Verified 04/28/18 19:36) Nausea Past Medical History - General Information source: Patient - Social History Smoking Status: Unknown if Ever Smoked Drug Abuse: None Lives with: Alone Family History: CAD, Hyperlipidemia, Hypertension - Past Medical History Cardiac Medical History: Reports: Hx Hypertension Denies: Hx Heart Attack, Hx Hypercholesterolemia, Hx Peripheral Vascular Disease Pulmonary Medical History: Reports: Hx Asthma Denies: Hx Tuberculosis Endocrine Medical History: Reports: Hx Diabetes Mellitus Type 1, Hx Diabetes Mellitus Type 2 Renal/ Medical History: Reports: Hx Kidney Stones. Denies: Hx Peritoneal Dialysis GI Medical History: Reports: Hx Gastroesophageal Reflux Disease Musculoskeletal Medical History: Reports Hx Arthritis - chronic back pain Skin Medical History: Reports Hx MRSA Psychiatric Medical History: Reports: Hx Anxiety, Hx Attention Deficit Hyperactivity Disorder, Hx Bipolar Disorder, Hx Depression, Hx Schizophrenia Past Surgical History: Reports: Hx Cholecystectomy, Hx Orthopedic Surgery - r pinkie, L leg fx as child - Immunizations Hx Diphtheria, Pertussis, Tetanus Vaccination: Yes - 10/19/12 Review of Systems - Review of Systems Constitutional: No symptoms reported EENT: No symptoms reported Cardiovascular: No symptoms reported Respiratory: No symptoms reported Gastrointestinal: No symptoms reported Genitourinary: No symptoms reported Male Genitourinary: No symptoms reported Musculoskeletal: See HPI Skin: See HPI Hematologic/Lymphatic: No symptoms reported Neurological/Psychological: No symptoms reported Physical Exam - Vital signs Vitals: Temp Pulse Resp BP Pulse Ox 97.7 F 77 20 123/76 98 01/19/19 23:44 01/19/19 23:44 01/19/19 23:44 01/19/19 23:44 01/19/19 23:44 - Notes Notes: GENERAL: Alert, interacts well. No acute distress. HEAD: Normocephalic, atraumatic. EYES: Pupils equal, round, and reactive to light. Extraocular movements intact. ENT: Oral mucosa moist, tongue midline. Oropharynx unremarkable. Airway patent. LUNGS: Clear to auscultation bilaterally, no wheezes, rales, or rhonchi. No respiratory distress. HEART: Regular rate and rhythm. No murmur ABDOMEN: Soft, non-tender. Non-distended. GENITOURINARY: Deferred EXTREMITIES: Right lower extremity with soft tissue swelling over the lateral malleolus, top of the foot, and slightly above the ankle. There is a tiny abrasion and healing bruise over the right distal tibia. No abnormal erythema, no concerning warmth, no severe tenderness. Normal capillary refill and sensation. Normal exam otherwise. BACK: no cervical, thoracic, lumbar midline tenderness. No saddle anesthesia, normal distal neurovascular exam. Moves all extremities in full range of motion. NEUROLOGICAL: Alert and oriented x3. Normal speech. Cranial nerves II through XII grossly intact. PSYCH: Normal affect, normal mood. SKIN: Warm, dry, normal turgor. No rashes or lesions noted. Course - Re-evaluation Re-evalutation: Exam is suggestive of ankle sprain, however there is no secondary cellulitis noted on my examination. Vital signs unremarkable. Patient is very well- appearing. X-ray is negative for acute findings other than soft tissue swelling. I discussed this in detail with patient. Provided him with ankle stirrup and Laci wrap, crutches, discussed treatment, follow-up, return precautions. Patient states satisfaction and agreement. - Vital Signs Vital signs: Temp Pulse Resp BP Pulse Ox 98.2 F 68 16 112/73 100 01/20/19 04:54 01/20/19 04:54 01/20/19 04:54 01/20/19 04:54 01/20/19 04:54 Procedures - Immobilization Right ankle Pre-Proc Neuro Vasc Exam: Normal Immobilizer type: Laci wrap, Ankle stirrup Performed by: PCT Post-Proc Neuro Vasc Exam: Normal Alignment checked and good: Yes Discharge - Discharge Clinical Impression: Right ankle injury Qualifiers: Encounter type: initial encounter Qualified Code(s): S99.911A - Unspecified injury of right ankle, initial encounter Condition: Stable Disposition: HOME, SELF-CARE Additional Instructions: Your evaluation and imaging both show soft tissue swelling consistent with a sprain/injury of the ligament in your ankle. No fracture or infection is seen. I recommend that you elevate your foot whenever possible, ice 3-4 times a day, use the ankle stirrup and Laci wrap for the next 2 to 3 days with crutches or until symptoms resolved. Follow-up with orthopedics if symptoms continue. Return for any concerning symptoms including developing or spreading redness, fever/chills, severe worsening swelling, or any other concerning or worsening symptoms. Referrals: ANTOINETTE FRAZIER MD [ACTIVE STAFF] - Follow up as needed
--- NOTE | 2019-01-20 04:10 | RADIOLOGY REPORT (SQ) ---
EXAM DESCRIPTION: XR ANKLE 3 OR MORE VIEWS COMPLETED DATE/TME: 01/20/2019 02:09 CLINICAL HISTORY: 43 years, Male, injury, swelling COMPARISON: None. NUMBER OF VIEWS: Three TECHNIQUE: Three views of the right ankle LIMITATIONS: None. FINDINGS: There is no acute fracture or dislocation. The ankle mortise is intact. There is mild soft tissue swelling surrounding the ankle. An os trigonum is noted. IMPRESSION: No acute fracture or dislocation. copyright 2010 [employer]- All Rights Reserved
--- NOTE | 2019-01-20 04:11 | RADIOLOGY REPORT (SQ) ---
EXAM DESCRIPTION: XR FOOT 3 OR MORE VIEWS COMPLETED DATE/TME: 01/20/2019 02:09 CLINICAL HISTORY: 43 years, Male, injury, swelling COMPARISON: None. NUMBER OF VIEWS: Three TECHNIQUE: Three views of the right LIMITATIONS: None. FINDINGS: There is no acute fracture or dislocation. An old healed fracture of the fifth metatarsal is noted. No radiopaque foreign body. Mild soft tissue swelling surrounding the foot. IMPRESSION: No acute fracture or dislocation. copyright 2010 [employer]- All Rights Reserved
[2019-01-20 04:55] VITALS: BP 112/73
== END 2019-01-20 05:10 | disposition home or self-care (01) ==
LOC: ER 23:04
PROC: 2W3QX1Z Immobilization of Right Lower Leg using Splint (ICD-10-PCS; principal; 2019-01-19)
DX: S99.911A Unspecified injury of right ankle, initial encounter (principal); M79.89 Other specified soft tissue disorders; M79.604 Pain in right leg; W51.XXXA Accidental striking against or bumped into by another person, initial encounter; I10 Essential (primary) hypertension
CPT/HCPCS: 99283; 73610; 73630; 29515; L1902

== ENCOUNTER 2019-01-21 19:32 | Emergency (ER) | payer MEDICAID ==
[2019-01-21 19:54] VITALS: BP 135/77
--- NOTE | 2019-01-21 20:29 | RADIOLOGY REPORT (SQ) ---
EXAM DESCRIPTION: XR FOOT 3 OR MORE VIEWS COMPLETED DATE/TME: 01/21/2019 00:00 CLINICAL HISTORY: 43 years ,Male twisted right foot on sat COMPARISON: 01/20/2019. TECHNIQUE: RIGHT foot, Three view FINDINGS: No acute fracture is noted. There is significant soft tissue swelling over the dorsal surface of the foot. Old fracture deformity of the fifth metatarsal with interval callus formation. No radiopaque foreign object noted. No significant ankle effusion noted. IMPRESSION: No acute fracture or dislocation is identified. Significant soft tissue swelling over the forefoot. If patient's symptoms persist recommend follow-up films in seven days.
[2019-01-21] MEDS ORDERED: HYDROCODONE/ACETAMINOPHEN 5-325 MG TABLET PO ONE (20:34)
--- NOTE | 2019-01-21 20:37 | ER Document Report ---
ED Medical Screen (RME) - General Chief Complaint: Foot Pain Stated Complaint: RIGHT FOOT PAIN Time Seen by Provider: 01/21/19 20:31 Primary Care Provider: HORTENCIA JOYNER MD [Primary Care Provider] - Follow up as needed Information source: Patient Notes: Patient states that he injured his foot on January 16 after people were trying to restrain a dog from biting people. Patient is uncertain what exactly happened to the foot. Patient complains of worsening right foot pain and states that he cannot feel his toes of his right foot. Patient with significant swelling. X- ray was performed which did not demonstrate any fracture. I have greeted and performed a rapid initial assessment of this patient. A comprehensive ED assessment and evaluation of the patient, analysis of test results and completion of the medical decision making process will be conducted by additional ED providers. TRAVEL OUTSIDE OF THE [place] IN LAST 30 DAYS: No - Related Data Allergies/Adverse Reactions: Penicillins Allergy (Severe, Verified 01/21/19 19:38) ketorolac tromethamine [From Toradol] Allergy (Verified 01/21/19 19:38) acetaminophen [From Tylenol] Adverse Reaction (Mild, Verified 01/21/19 19:38) Nausea codeine [Codeine] Adverse Reaction (Verified 01/21/19 19:38) Nausea tramadol [Tramadol] Adverse Reaction (Verified 01/21/19 19:38) Nausea tramadol HCl [From Ultram] Adverse Reaction (Verified 01/21/19 19:38) Nausea Past Medical History - Social History Chew tobacco use (# tins/day): Yes Frequency of alcohol use: Occasional Drug Abuse: None Family history: Reviewed & Not Pertinent - Past Medical History Cardiac Medical History: Reports: Hx Hypertension Denies: Hx Heart Attack, Hx Hypercholesterolemia, Hx Peripheral Vascular Disease Pulmonary Medical History: Reports: Hx Asthma Denies: Hx Tuberculosis Endocrine Medical History: Reports: Hx Diabetes Mellitus Type 1, Hx Diabetes Mellitus Type 2 Renal/ Medical History: Reports: Hx Kidney Stones. Denies: Hx Peritoneal Dialysis GI Medical History: Reports: Hx Gastroesophageal Reflux Disease Musculoskeltal Medical History: Reports Hx Arthritis - chronic back pain Skin Medical History: Reports Hx MRSA Psychiatric Medical History: Reports: Hx Anxiety, Hx Attention Deficit Hyperactivity Disorder, Hx Bipolar Disorder, Hx Depression, Hx Schizophrenia Past Surgical History: Reports: Hx Cholecystectomy, Hx Orthopedic Surgery - r pinkie, L leg fx as child - Immunizations Hx Diphtheria, Pertussis, Tetanus Vaccination: Yes - 10/19/12 Physical Exam - Vital signs Vitals: Temp Pulse Resp BP Pulse Ox 98.3 F 77 16 135/77 H 95 01/21/19 19:53 01/21/19 19:53 01/21/19 19:53 01/21/19 19:53 01/21/19 19:53 - General Notes: 3+ edema to right foot with ecchymosis and delayed cap refill Course - Vital Signs Vital signs: Temp Pulse Resp BP Pulse Ox 98.3 F 77 16 135/77 H 95 01/21/19 19:53 01/21/19 19:53 01/21/19 19:53 01/21/19 19:53 01/21/19 19:53 Doctor's Discharge - Discharge Referrals: HORTENCIA JOYNER MD [Primary Care Provider] - Follow up as needed
[2019-01-22] MEDS ORDERED: CLINDAMYCIN HCL 150 MG CAPSULE PO ONE (00:38)
[2019-01-22] MEDS ORDERED: HYDROCODONE/ACETAMINOPHEN 5-325 MG (6 TAB/ER DISP) PO PRN (00:38)
--- NOTE | 2019-01-22 01:00 | ER Document Report ---
ED General - General Chief Complaint: Foot Pain Stated Complaint: RIGHT FOOT PAIN Time Seen by Provider: 01/21/19 20:31 Primary Care Provider: HORTENCIA JOYNER MD [Primary Care Provider] - Follow up as needed Mode of Arrival: Ambulatory Information source: Patient TRAVEL OUTSIDE OF THE [place] IN LAST 30 DAYS: No - HPI Notes: Patient is a 43-year-old male well-known to the emergency department with history of schizophrenia polysubstance abuse peripheral vascular disease and [id number] diabetes presents to the emergency department with report that on 01/16/2019 he injured his right lower extremity when he may have had an inversion injury or fall on forward on the foot. The patient reports pain and swelling since that time. He had previous negative x-ray for acute fracture, but he states the swelling and pain persists. The patient denies any knee pain or fever or chills or chest pain or difficulty breathing. He reports that the pain and swelling caused some degree of numbness also to the right foot. Patient also reports previous history of diabetic neuropathy back when he weighed over 300 pounds, but he states he has lost significant weight. - Related Data Allergies/Adverse Reactions: Penicillins Allergy (Severe, Verified 01/21/19 19:38) ketorolac tromethamine [From Toradol] Allergy (Verified 01/21/19 19:38) acetaminophen [From Tylenol] Adverse Reaction (Mild, Verified 01/21/19 19:38) Nausea codeine [Codeine] Adverse Reaction (Verified 01/21/19 19:38) Nausea tramadol [Tramadol] Adverse Reaction (Verified 01/21/19 19:38) Nausea tramadol HCl [From Ultram] Adverse Reaction (Verified 01/21/19 19:38) Nausea Past Medical History - General Information source: Patient - Social History Smoking Status: Former Smoker Chew tobacco use (# tins/day): Yes Frequency of alcohol use: Occasional Drug Abuse: Cocaine, Marijuana Lives with: Friend Family History: CAD, Hyperlipidemia, Hypertension Patient has suicidal ideation: No Patient has homicidal ideation: No - Past Medical History Cardiac Medical History: Reports: Hx Hypertension Denies: Hx Heart Attack, Hx Hypercholesterolemia, Hx Peripheral Vascular Disease Pulmonary Medical History: Reports: Hx Asthma Denies: Hx Tuberculosis Endocrine Medical History: Reports: Hx Diabetes Mellitus Type 1, Hx Diabetes Mellitus Type 2 Renal/ Medical History: Reports: Hx Kidney Stones. Denies: Hx Peritoneal Dialysis GI Medical History: Reports: Hx Gastroesophageal Reflux Disease Musculoskeletal Medical History: Reports Hx Arthritis - chronic back pain Skin Medical History: Reports Hx MRSA Psychiatric Medical History: Reports: Hx Anxiety, Hx Attention Deficit Hyperactivity Disorder, Hx Bipolar Disorder, Hx Depression, Hx Schizophrenia Past Surgical History: Reports: Hx Cholecystectomy, Hx Orthopedic Surgery - r pinkie, L leg fx as child - Immunizations Hx Diphtheria, Pertussis, Tetanus Vaccination: Yes - 10/19/12 Review of Systems - Review of Systems -: Yes All other systems reviewed and negative Physical Exam - Vital signs Vitals: Temp Pulse Resp BP Pulse Ox 98.3 F 77 16 135/77 H 95 01/21/19 19:53 01/21/19 19:53 01/21/19 19:53 01/21/19 19:53 01/21/19 19:53 - Notes Notes: PHYSICAL EXAMINATION: GENERAL: Well-appearing, well-nourished and in no acute distress. HEAD: Atraumatic, normocephalic. EYES: Pupils equal round and reactive to light, extraocular movements intact, sclera anicteric, conjunctiva are normal. ENT: Nares patent, oropharynx clear without exudates. Moist mucous membranes. NECK: Normal range of motion, supple without lymphadenopathy LUNGS: Breath sounds clear to auscultation bilaterally and equal. No wheezes rales or rhonchi. HEART: Regular rate and rhythm without murmurs ABDOMEN: Soft, nontender, nondistended abdomen. No guarding, no rebound. No masses appreciated. Musculoskeletal: 1+ bilateral pretibial edema. No cyanosis. Good distal pulses. Patient has contusion to the right distal and lateral foot with associated swelling and very minimal amount of erythema. There is no obvious abscess. There may be very mild cellulitis but there is no proximal red streaks. Good distal capillary refill. No proximal erythema or adenopathy. Patient has pain subjectively throughout the right foot more lateral aspect. He has intact tendon function noted to the toes and foot. NEUROLOGICAL: Cranial nerves grossly intact. Normal speech, normal gait. Normal sensory, motor exams PSYCH: Normal mood, normal affect. SKIN: Warm, Dry, normal turgor, no rashes or lesions noted. Course - Re-evaluation Re-evalutation: 01/22/19 01:01 X-ray was negative. Patient was given a cast shoe and clindamycin and medication for pain. He will elevate the foot stay off of it and to use the crutches he was supplied with earlier. No evidence for fracture or neurovascular compromise or obvious tendon injury. We will cover for cellul itis. 01/22/19 01:04 Sugar 159. No obvious diabetic complication. 01/22/19 01:04 Patient denied any allergy to ibuprofen, and made no mention of any allergy to Toradol. 01/22/19 01:09 01/22/19 01:10 - Vital Signs Vital signs: Temp Pulse Resp BP Pulse Ox 98.3 F 77 16 135/77 H 95 01/21/19 19:53 01/21/19 19:53 01/21/19 19:53 01/21/19 19:53 01/21/19 19:53 - Laboratory Laboratory results interpreted by me: 01/22/19 00:31 POC Glucose 159 H Discharge - Discharge Clinical Impression: Cellulitis Qualifiers: Site of cellulitis: extremity Site of cellulitis of extremity: lower extremity Laterality: right Qualified Code(s): L03.115 - Cellulitis of right lower limb Foot sprain Qualifiers: Encounter type: subsequent encounter Laterality: right Qualified Code(s): S93.601D - Unspecified sprain of right foot, subsequent encounter Condition: Stable Disposition: HOME, SELF-CARE Instructions: Sprain ([facility]), Splint Precautions ([facility]), Cellulitis ([facility]), Use of Crutches ([facility]) Additional Instructions: Elevate legs for swelling and pain. Return to the emergency department in case of fever or worsening redness or swelling. Prescriptions: Diclofenac Sodium 75 mg PO Q12HP PRN #30 tablet.dr KAN Reason: Clindamycin HCl 300 mg PO TID #30 capsule Referrals: HORTENCIA JOYNER MD [Primary Care Provider] - Follow up as needed ANTOINETTE FRAZIER MD [ACTIVE STAFF] - Follow up as needed
--- NOTE | 2019-01-23 16:39 | XCELERA REPORT ---
[address] [address] Lower Extremity Arterial Evaluation Name: THA JOHNSON JRJR Age: 43 yrs Gender: Male : 1975 Patient Status: Preadmit Patient Location: ER Study Date: 01/21/2019 09:10 PM Procedure: A color flow and duplex scan of the lower extremity arteries was performed on the right with velocity and waveform anaylsis. Reason For Study: R foot pain, swelling, delayed cap refill Ordering Physician: JHON ALDANA Performed By: Liliya Reynaga Measurements and Calculations Right Left CUBING MACHINE TENDER PSV 87.4 cm/sec Prox PFA PSV -54.5 cm/sec Prox SFA PSV 85.1 cm/sec Mid SFA PSV 88.8 cm/sec Dist SFA PSV 72.2 cm/sec Prox Pop A PSV 65.8 cm/sec Mid CONOR PSV 89.9 cm/sec Mid SENIOR CENTER DIRECTOR PSV 103.7 cm/sec Adrien Pedis PSV -98.7 cm/sec Right Side Arterial Evaluation Normal velocity and triphasic waveforms noted from the Common Femoral artery to the infrageniculate vessels . Ankle Brachial index not obtained. Interpretation Summary No hemodynamically significant lesions in the right lower extremity only, on duplex imaging, at rest. : JHON ALDANA > Rajesh Molina
== END 2019-01-22 01:27 | disposition home or self-care (01) ==
LOC: ER 19:32
DX: L03.115 Cellulitis of right lower limb (principal); S93.601D Unspecified sprain of right foot, subsequent encounter; M79.671 Pain in right foot; E11.9 Type 2 diabetes mellitus without complications; M79.604 Pain in right leg; M79.89 Other specified soft tissue disorders; R20.0 Anesthesia of skin; W19.XXXD Unspecified fall, subsequent encounter; Z87.891 Personal history of nicotine dependence; I10 Essential (primary) hypertension; J45.909 Unspecified asthma, uncomplicated
CPT/HCPCS: 99284; 82962; 93926 ×2; 73630; J3490